=== PATIENT | female | born 1975 | race Caucasian/White ===

== ENCOUNTER → 2020-03-10 | Outpatient (CLI) | payer OTHER ==
--- NOTE | 2020-03-10 23:12 | NM ---
EXAMINATION TYPE: NM gastric emptying static DATE OF EXAM: 03/10/2020 COMPARISON: NONE HISTORY: Gastroparesis Following administration of 2.1 mCi Tc 99m Sulfur Colloid with 4oz liquid eggs and ice water, project ion images of the abdomen were obtained 5 minutes post ingestion. Patient Emptying Values 1 Hour 10 % 2 Hours 63 % 3 Hours 76 % 4 Hours 90 % Gastroesophageal reflux: None IMPRESSION: Gastric emptying: Normal Gastroesophageal reflux: None Gastric emptying normal percentage values: 30 minutes: <70% of retention (> 30% emptying) suggests abnormally fast emptying. 60 minutes: <90% retention (>10% emptying) is normal; less than 30% retention (>70% emptying) suggest s abnormally rapid emptying. 90 minutes: <65% retention (> 35% emptying) is normal. 120 minutes: <60% retention (> 40% emptying) is normal. 180 minutes: <30% retention (> 70% emptying) is normal. Gastric emptying T-1/2: Solid: The normal range is 60-105 minutes Liquid only: Normal range is 10-45 minutes. Liquid only-children: At 60 minutes, normal range is 44-58 % . Liquid only-infants: At 60 minutes, normal range is 32-64 %. Additional references: Gastric Emptying Scintigraphy [email or web address]://[email or web address]
== END | disposition home or self-care (01) ==
LOC: RADNMMAIN 06:51
PROVIDERS: ATTEND Internal Medicine
DX: K31.84 Gastroparesis (principal)
CPT/HCPCS: 78264; A9541

== ENCOUNTER 2022-07-28 18:27 | Inpatient (IN) | payer OTHER ==
[2022-07-28] MEDS ORDERED: FAMOTIDINE 20 MG/2 ML VIAL IV STA (18:49)
[2022-07-28] MEDS ORDERED: SODIUM CHLORIDE 0.9% 1,000 ML IV STA (18:49)
[2022-07-28] MEDS ORDERED: HYDROmorphone 1 MG/ML 1 ML SYRINGE IVP STA (18:49)
--- NOTE | 2022-07-28 18:52 | ED ---
General Adult HPI - General Chief complaint: Abdominal Pain Stated complaint: Abd Pain Time Seen by Provider: 07/28/22 18:30 Source: patient, EMS, RN notes reviewed Mode of arrival: EMS Limitations: no limitations - History of Present Illness Initial comments: Patient is a pleasant 47-year-old female presenting to the emergency department with concerns for abdominal pain. Onset of symptoms was around 2:00 while at work. Patient started with abdominal discomfort in the mid abdomen that did descend angled towards the right. Patient had 2 episodes of diarrhea and 2 episodes of vomiting. Discomfort is improved following pain medication by EMS and is currently 6 or 7/10. Patient states nausea has resolved. No history of similar symptoms previously. Patient does have history of previous cholecystectomy - Related Data Home Medications Medication Instructions Recorded Confirmed Acetaminophen [Tylenol Extra 500 mg PO Q6H PRN 07/28/22 07/28/22 Strength] Allergies Allergy/AdvReac Type Severity Reaction Status Date / Time lidocaine Allergy Anaphylaxis Verified 07/28/22 20:06 Review of Systems ROS Statement: Those systems with pertinent positive or pertinent negative responses have been documented in the HPI. ROS Other: All systems not noted in ROS Statement are negative. Constitutional: Denies: fever Eyes: Denies: eye pain ENT: Denies: ear pain Respiratory: Denies: cough Cardiovascular: Denies: chest pain Endocrine: Denies: fatigue Gastrointestinal: Reports: as per HPI, abdominal pain, nausea, vomiting, diarrhea Genitourinary: Denies: dysuria Musculoskeletal: Denies: back pain Skin: Denies: rash Neurological: Denies: weakness Past Medical History Past Medical History: No Reported History, Cancer Additional Past Medical History / Comment(s): Breast cancer History of Any Multi-Drug Resistant Organisms: None Reported Past Surgical History: Hernia Repair, Orthopedic Surgery, Tubal Ligation Past Psychological History: Anxiety Smoking Status: Never smoker Past Alcohol Use History: None Reported Past Drug Use History: None Reported General Exam Limitations: no limitations General appearance: alert, in no apparent distress Head exam: Present: normocephalic Eye exam: Present: normal appearance Neck exam: Present: normal inspection Respiratory exam: Present: normal lung sounds bilaterally Cardiovascular Exam: Present: regular rate, normal rhythm Expanded Peripheral pulses: 2+: Posterior Tibialis (R), Posterior Tibialis (L) GI/Abdominal exam: Present: soft, tenderness (Moderate tenderness right upper quadrant and epigastrium, mild tenderness periumbilical), normal bowel sounds. Absent: distended, guarding, rebound, rigid, pulsatile mass Extremities exam: Present: normal inspection Neurological exam: Present: alert Psychiatric exam: Present: normal affect, normal mood Skin exam: Present: normal color Course Vital Signs 07/28/22 07/28/22 18:32 19:32 Temperature 98.0 F Pulse Rate 80 86 Respiratory 22 16 Rate Blood Pressure 167/82 164/93 O2 Sat by Pulse 99 98 Oximetry EKG Findings - EKG Results: EKG: interpreted by ERMD, sinus rhythm, normal axis, normal QRS, normal ST/T Procedures - Procedures Initial comment: Verbal informed consent given. Attempted hernia reduction with manual pressure. There was at least partial reduction with pressure and improvement of palpable hernia. Patient however has no improvement of clinical symptoms. Discomfort is not present unless palpated in the area of hernia. Medical Decision Making - Medical Decision Making Was pt. sent in by a medical professional or institution (, PA, [employer], urgent care, hospital, or group home...) When possible be specific @ -[No] Did you speak to anyone other than the patient for history (EMS, parent, family, police, friend...)? What history was obtained from this source @ -[No] Did you review nursing and triage notes (agree or disagree)? Why? @ -[I reviewed and agree with nursing and triage notes] Were old charts reviewed (outside hosp., previous admission, EMS record, old EKG, old radiological studies, urgent care reports/EKG's, group home records)? Report findings @ -[No old charts were reviewed] Differential Diagnosis (chest pain, altered mental status, abdominal pain women, abdominal pain men, vaginal bleeding, weakness, fever, dyspnea, syncope, headache, dizziness, GI bleed, back pain, seizure, CVA, palpatations, mental health)? @ -Differential Abdominal Pain Women: Appendicitis, Cholecystitis, diverticulosis, ischemic bowel, pancreatitis, hepatitis, UTI, gastroenteritis, AAA, incarcerated hernia, bowel obstruction, constipation, inflammatory bowel, hepatitis, peptic ulcer disease, splenic infarction, perforated viscus, vulvitis, ovarian torsion, PID, kidney stone, placenta abruption, this is not meant to be an all-inclusive list EKG interpreted by me (3pts min.). @ -[As above] X-rays interpreted by me (1pt min.). @ -[None done] CT interpreted by me (1pt min.). @ -CT report from radiologist reviewed showing incarcerated hernia with small bowel obstruction U/S interpreted by me (1pt. min.). @ -[None done] What testing was considered but not performed or refused? (CT, X-rays, U/S, labs)? Why? @ -Considered x-ray however CT thought to be more valuable What meds were considered but not given or refused? Why? @ -[None] Did you discuss the management of the patient with other professionals (professionals i.e. , PA, [employer], lab, RT, psych nurse, executive secretary social welfare, residential interior designer, teacher, maritime officer, case manager specialist)? Give summary @ -Case discussed with Dr. Puga who will admit. He does request IV antibiotics, NG tube and nothing by mouth, probable surgery in the morning Was smoking cessation discussed for >3mins.? @ -[No] Was critical care preformed (if so, how long)? @ -[No] Were there social determinants of health that impacted care today? How? (Homelessness, low income, unemployed, alcoholism, drug addiction, sanchez sportation, low edu. Level, literacy, decrease access to med. care, [facility], rehab)? @ -[No] Was there de-escalation of care discussed even if they declined (Discuss DNR or withdrawal of care, Hospice)? DNR status @ -[No] What co-morbidities impacted this encounter? (DM, HTN, Smoking, COPD, CAD, Cancer, CVA, ARF, Chemo, Hep., AIDS, mental health diagnosis, sleep apnea, morbid obesity)? @ -[None] Was patient admitted / discharged? Hospital course, mention meds given and route, prescriptions, significant lab abnormalities, going to OR and other pertinent info. @ -Patient reevaluated. Attempted reduction that appeared successful however no improvement of clinical symptoms. Patient will be admitted to the hospital. Orders written. Undiagnosed new problem with uncertain prognosis? @ -[No] Drug Therapy requiring intensive monitoring for toxicity (Heparin, Nitro, Insulin, Cardizem)? @ -[No] Were any procedures done? @ -[No] Diagnosis/symptom? @ -Incarcerated umbilical hernia Acute, or Chronic, or Acute on Chronic? @ -Acute Uncomplicated (without systemic symptoms) or Complicated (systemic symptoms)? @ -Complicated by bowel obstruction Side effects of treatment? @ -[No] Exacerbation, Progression, or Severe Exacerbation? @ -[No] Poses a threat to life or bodily function? How? (Chest pain, USA, AR, pneumonia, PE, COPD, DKA, ARF, appy, cholecystitis, CVA, Diverticulitis, Homicidal, Suicidal, threat to staff... and all critical care pts) @ -Poses a threat to life secondary to bowel obstruction from hernia - Lab Data Result diagrams: 07/28/22 18:56 07/28/22 18:56 Lab Results 07/28/22 07/28/22 Range/Units 18:56 18:56 WBC 16.4 H (3.8-10.6) k/uL RBC 4.93 (3.80-5.40) m/uL Hgb 13.9 (11.4-16.0) gm/dL Hct 42.7 (34.0-46.0) % MCV 86.5 (80.0-100.0) fL MCH 28.3 (25.0-35.0) pg MCHC 32.7 (31.0-37.0) g/dL RDW 14.0 (11.5-15.5) % Plt Count 294 (150-450) k/uL MPV 8.1 Neutrophils % 90 % Lymphocytes % 7 % Monocytes % 2 % Eosinophils % 0 % Basophils % 0 % Neutrophils # 14.8 H (1.3-7.7) k/uL Lymphocytes # 1.1 (1.0-4.8) k/uL Monocytes # 0.4 (0-1.0) k/uL Eosinophils # 0.0 (0-0.7) k/uL Basophils # 0.0 (0-0.2) k/uL Sodium 140 (137-145) mmol/L Potassium 3.8 (3.5-5.1) mmol/L Chloride 108 H (98-107) mmol/L Carbon Dioxide 24 (22-30) mmol/L Anion Gap 8 mmol/L BUN 13 (7-17) mg/dL Creatinine 0.53 (0.52-1.04) mg/dL Est GFR (CKD-EPI)AfAm >90 (>60 ml/min/1.73 sqM) Est GFR (CKD-EPI)NonAf >90 (>60 ml/min/1.73 sqM) Glucose 98 (74-99) mg/dL Calcium 8.9 (8.4-10.2) mg/dL Total Bilirubin 0.5 (0.2-1.3) mg/dL AST 22 (14-36) U/L ALT 16 (4-34) U/L Alkaline Phosphatase 89 (38-126) U/L Total Protein 6.9 (6.3-8.2) g/dL Albumin 4.3 (3.5-5.0) g/dL Amylase 65 (30-110) U/L Lipase 110 (23-300) U/L Disposition Clinical Impression: Small bowel obstruction, Umbilical hernia Disposition: ADMITTED IP TO THIS HOSP Is patient prescribed a controlled substance at d/c from ED?: No Referrals: France Root MD [Primary Care Provider] - 1-2 days Time of Disposition: 20:38
[2022-07-28 19:43] LABS: Basophils % (A) 0 %; Eosinophils % (A) 0 %; HCT 42.7 % (34.0-46.0); HGB 13.9 gm/dL (11.4-16.0); Lymphocytes # (A) 1.1 k/uL (1.0-4.8); Lymphocytes % (A) 7 %; MCH 28.3 pg (25.0-35.0); MCHC 32.7 g/dL (31.0-37.0); MCV 86.5 fL (80.0-100.0); Mean Platelet Volume 8.1; Monocytes # (A) 0.4 k/uL (0-1.0); Monocytes % (A) 2 %; Neutrophils # (A) 14.8 k/uL (1.3-7.7); Neutrophils % (A) 90 %; Platelet Count 294 k/uL (150-450); RBC 4.93 m/uL (3.80-5.40); WBC 16.4 k/uL (3.8-10.6)
--- NOTE | 2022-07-28 19:55 | CT ---
EXAMINATION TYPE: CT abdomen pelvis w con DATE OF EXAM: 07/28/2022 COMPARISON: None HISTORY: RT side abdomen pain. CT DLP: 1799.6 mGycm Automated exposure control for dose reduction was used. CONTRAST: Performed with IV Contrast, patient injected with 100cc mL of Isovue 300. Images obtained from the diaphragm to the floor of the pelvis with the IV contrast. Lung bases are clear. No pleural effusion. Heart size is normal. No pericardial effusion. There is sm all hiatal hernia. Liver spleen and pancreas appear intact. The bile ducts are not dilated. There are clips from cholecy stectomy. There is periumbilical or umbilical hernia with apparent incarcerated small bowel in the mid abdomen. There are multiple dilated fluid-filled small bowel loops extending up to the hernia. Small bowel me asures up to 3.5 cm. The distal ileum is not dilated. There is some mild small bowel mesenteric edema near the hernia. There is no adrenal mass. There is 1 cm cortical cyst medial upper pole left kidney. No hydronephrosi s. Kidneys have normal size. Delayed images show normal renal excretion. No evidence of solid renal m ass. There is small amount of low-density free fluid in the pelvis. There is small air bubble in the urina ry bladder. This could relate to catheterization. No inguinal hernia. No evidence of a pelvic mass. N o evidence of pneumoperitoneum. Appendix is anterior and appears normal. The lumbar spine is intact. Disc spaces are normal. No compression fracture. The bony pelvis is intac t. The hip joints are intact. Sacroiliac joints appear normal. IMPRESSION: Periumbilical hernia containing incarcerated loop of small bowel with a mechanical small bowel obstru ction. Hernia measures 8 cm and the opening is 2.7 cm.
[2022-07-28 20:05] LABS: ALT 16 U/L (4-34); AST 22 U/L (14-36); African American GFR (CKD) >90 (>60 ml/min/1.73 sqM); Albumin 4.3 g/dL (3.5-5.0); Alkaline Phosphatase 89 U/L (38-126); Amylase 65 U/L (30-110); Anion Gap 8 mmol/L; Blood Urea Nitrogen 13 mg/dL (7-17); Calcium 8.9 mg/dL (8.4-10.2); Carbon Dioxide 24 mmol/L (22-30); Chloride 108 mmol/L (98-107); Glucose 98 mg/dL (74-99); Lipase 110 U/L (23-300); Non-African American GFR(CKD) >90 (>60 ml/min/1.73 sqM); Potassium 3.8 mmol/L (3.5-5.1); Sodium 140 mmol/L (137-145); Total Bilirubin 0.5 mg/dL (0.2-1.3); Total Protein 6.9 g/dL (6.3-8.2)
[2022-07-28 20:07] LABS: INR 0.9 (<1.2); Prothrombin Time 10.1 sec (9.0-12.0)
[2022-07-28] MEDS ORDERED: NALOXONE 0.4 MG/ML 1 ML VIAL IV PRN (20:44)
[2022-07-28 20:47] LABS: Partial Thromboplastin Time 21.9 sec (22.0-30.0)
[2022-07-28] MEDS: SODIUM CHLORIDE 0.9% 1,000 ML IV SCH (21:13)
[2022-07-28] MEDS: HYDROmorphone 1 MG/ML 1 ML SYRINGE IVP PRN ×2 (21:14→23:57)
[2022-07-28] MEDS: ONDANSETRON 4 MG/2 ML VIAL IVP PRN (21:31)
--- NOTE | 2022-07-28 22:01 | XR ---
EXAMINATION TYPE: XR KUB portable DATE OF EXAM: 07/28/2022 COMPARISON: NONE HISTORY: Check tube placement TECHNIQUE: Single view FINDINGS: Upright portable exam shows nasogastric tube with the tip over the gastric fundus. Lung bas es are clear of consolidation. No definite pleural fluid. Bowel gas pattern appears nonacute. No sign of free air. IMPRESSION: NG tube is in the stomach.
[2022-07-28] MEDS: PIPERACILLIN-TAZOBACTAM 3.375 GM in SODIUM CHLORIDE 0.9% 100 ML IVPB SCH (23:57)
[2022-07-29] MEDS: HYDROmorphone 1 MG/ML 1 ML SYRINGE IVP PRN ×4 (04:53→19:48)
[2022-07-29] MEDS: SODIUM CHLORIDE 0.9% 1,000 ML IV SCH ×3 (06:21→22:09)
[2022-07-29] MEDS: ONDANSETRON 4 MG/2 ML VIAL IVP PRN (06:21)
[2022-07-29] MEDS ORDERED: LACTATED RINGERS 1,000 ML IV ONE (08:00)
[2022-07-29] MEDS ORDERED: HEPARIN SODIUM,PORCINE 5,000 UNIT/ML 1 ML VIAL SQ ONE (08:05)
[2022-07-29] MEDS ORDERED: PROPOFOL 10 MG/ML 20 ML VIAL IV ONE (08:09)
[2022-07-29] MEDS ORDERED: ePHEDrine 50 MG/ML 1 ML VIAL ONE (08:09)
[2022-07-29] MEDS ORDERED: NEOSTIGMINE 1 MG/ML 10 ML VIAL ONE (08:09)
[2022-07-29] MEDS ORDERED: ROCURONIUM 10 MG/ML (5 ML VIAL) IV ONE (08:09)
[2022-07-29] MEDS ORDERED: fentaNYL (PF) 50 MCG/ML 2 ML AMP ONE (08:09)
[2022-07-29] MEDS ORDERED: MIDAZOLAM 2 MG/2 ML VIAL ONE (08:09)
[2022-07-29] MEDS ORDERED: PHENYLEPHRINE-0.9% NACL SYG 1,000 MCG/10 ML SYRINGE ONE (08:09)
[2022-07-29] MEDS ORDERED: GLYCOPYRROLATE 0.2 MG/ML 2 ML VIAL ONE (08:09)
[2022-07-29] MEDS ORDERED: HYDROmorphone (PF) 1 MG/ML ONE (08:09)
[2022-07-29] MEDS ORDERED: SUCCINYLCHOLINE CHLORIDE 200 MG/10 ML VIAL IV ONE (08:09)
--- NOTE | 2022-07-29 08:11 | P.GSHP ---
History of Present Illness H&P Date: 07/29/22 Chief Complaint: Incarcerated incisional hernia 47-year-old female here with complaints of mid abdominal pain. Patient was previously seen for this hernia several years ago. Patient had a previous midline incision for a gynecologic oncologic surgery where she had total abd ominal hysterectomy performed. Apparently she had a very large mass at the time. Yesterday she developed sudden onset pain midabdomen that radiated upper and lower abdomen. This is associated with episodes of cramps and vomiting. She came to the hospital for evaluation. CAT scan shows an incarcerated incisional hernia containing a loop of small bowel causing some degree of obstruction. This was able to be reduced partially by the ER physician with improvement in the patient's symptoms per the ER doctor. White blood cell count elevated. Patient says she did well overnight but is again having pain this morning. - Review of Systems Comment: The patient denies any acute changes in vision or hearing, no dysphagia or odynophagia, no chest pain or shortness of breath, no dysuria or hematuria, no headache, no runny nose, no rectal bleeding or melena, no unexplained weight loss Past Medical History Past Medical History: No Reported History, Cancer Additional Past Medical History / Comment(s): Breast cancer History of Any Multi-Drug Resistant Organisms: None Reported Past Surgical History: Cholecystectomy, Hernia Repair, Orthopedic Surgery, Tubal Ligation Past Psychological History: Anxiety Smoking Status: Never smoker Past Alcohol Use History: None Reported Past Drug Use History: None Reported Medications and Allergies Home Medications Medication Instructions Recorded Confirmed Type Acetaminophen [Tylenol Extra 500 mg PO Q6H PRN 07/28/22 07/28/22 History Strength] Allergies Allergy/AdvReac Type Severity Reaction Status Date / Time lidocaine Allergy Anaphylaxis Verified 07/28/22 20:06 Surgical - Exam Vital Signs Temp Pulse Resp BP Pulse Ox 98.0 F 80 22 167/82 99 07/28/22 18:32 07/28/22 18:32 07/28/22 18:32 07/28/22 18:32 07/28/22 18:32 Physical exam: General: Well-developed, well-nourished HEENT: Normocephalic, sclerae nonicteric Abdomen: Mild distention, hernia difficult to palpate but there is certainly tenderness and fullness at the umbilicus Extremities: No edema Neuro: Alert and oriented Results - Labs 07/28/22 18:56 07/28/22 18:56 Abnormal Lab Results - Last 24 Hours (Table) 07/28/22 07/28/22 07/28/22 Range/Units 18:56 18:56 18:56 WBC 16.4 H (3.8-10.6) k/uL Neutrophils # 14.8 H (1.3-7.7) k/uL APTT 21.9 L (22.0-30.0) sec Chloride 108 H (98-107) mmol/L Diabetes panel 07/28/22 Range/Units 18:56 Sodium 140 (137-145) mmol/L Potassium 3.8 (3.5-5.1) mmol/L Chloride 108 H (98-107) mmol/L Carbon Dioxide 24 (22-30) mmol/L BUN 13 (7-17) mg/dL Creatinine 0.53 (0.52-1.04) mg/dL Glucose 98 (74-99) mg/dL Calcium 8.9 (8.4-10.2) mg/dL AST 22 (14-36) U/L ALT 16 (4-34) U/L Alkaline Phosphatase 89 (38-126) U/L Total Protein 6.9 (6.3-8.2) g/dL Albumin 4.3 (3.5-5.0) g/dL Calcium panel 07/28/22 Range/Units 18:56 Calcium 8.9 (8.4-10.2) mg/dL Albumin 4.3 (3.5-5.0) g/dL Pituitary panel 07/28/22 Range/Units 18:56 Sodium 140 (137-145) mmol/L Potassium 3.8 (3.5-5.1) mmol/L Chloride 108 H (98-107) mmol/L Carbon Dioxide 24 (22-30) mmol/L BUN 13 (7-17) mg/dL Creatinine 0.53 (0.52-1.04) mg/dL Glucose 98 (74-99) mg/dL Calcium 8.9 (8.4-10.2) mg/dL Adrenal panel 07/28/22 Range/Units 18:56 Sodium 140 (137-145) mmol/L Potassium 3.8 (3.5-5.1) mmol/L Chloride 108 H (98-107) mmol/L Carbon Dioxide 24 (22-30) mmol/L BUN 13 (7-17) mg/dL Creatinine 0.53 (0.52-1.04) mg/dL Glucose 98 (74-99) mg/dL Calcium 8.9 (8.4-10.2) mg/dL Total Bilirubin 0.5 (0.2-1.3) mg/dL AST 22 (14-36) U/L ALT 16 (4-34) U/L Alkaline Phosphatase 89 (38-126) U/L Total Protein 6.9 (6.3-8.2) g/dL Albumin 4.3 (3.5-5.0) g/dL Assessment and Plan (1) Incarcerated incisional hernia Narrative/Plan: 47-year-old female with incarcerated incisional hernia. We'll proceed with open repair incarcerated incisional hernia with possible bowel resection. Risks of bleeding, infection, recurrence, bladder and bowel injury, numbness, nerve injury, leak, abscess, seroma were discussed with the patient. The patient understands and wishes to proceed. Current Visit: Yes Status: Acute Code(s): K43.0 - INCISIONAL HERNIA WITH OBSTRUCTION, WITHOUT GANGRENE SNOMED Code(s): 768124706
--- NOTE | 2022-07-29 10:20 | P.OP ---
Date of Procedure: 07/29/22 Procedure(s) Performed: PREOPERATIVE DIAGNOSIS: Incarcerated incisional hernia POSTOPERATIVE DIAGNOSIS: Incarcerated incisional hernia, small bowel perforation, extensive abdominal adhesions PROCEDURE: Open repair incarcerated incisional hernia, small bowel resection, extensive lysis of adhesions SURGEON: Dr. Loza ANESTHESIA: General OPERATIVE PROCEDURE DETAILS: Patient placed on the operating table in the supine position. Abdomen was prepped and draped in usual sterile fashion. The previous incision was re-incised and extended superiorly. Later the incision was lengthened inferiorly as well. Dissection through the subcutaneous tissues took place using electrocautery. The patient had one large hernia defect measuring 8 cm in width. There was a very thin band of fascia between the 2 lateral margins. The patient also had multiple small 1-1.57 m fascial defects along the midline. The hernia sac was entered. As soon as we entered the hernia sac there was purulent fluid encountered. Careful evaluation of the small bowel deep to the hernia defect revealed a portion of small intestine that was viable with the exception of a perforation along the mesenteric border. There was some succus present there. The bowel was clamped at that location while we completed our dissection. The hernia sac was excised. Again the greatest width of the fascial defect was 8 cm. The height was 6 cm. Multiple small defects were also encountered and the fascia was divided. The patient had dense adhesions to the omentum and small bowel which were lysed using both electrocautery, sharp dissection, and blunt dissection. Eventually we had the ability to inspect the entirety of the small intestine. The bowel was ran from the ligament of Treitz to the ileocecal valve. No further abnormalities were seen. The small bowel resection took place at that time. The bowel was divided proximal and distal to the perforation segment using a linear 75 stapler. The mesentery was divided using the LigaSure device. The antimesenteric portion of the staple line was excised and the stapler was fired along the antimesenteric border. The remaining defect was closed transversely using a TX 60 device. A 3-0 GI silk crotch stitch was placed. The TX staple line was imbricated using interrupted 3-0 GI silk sutures. The bowel was reduced back into the perineal cavity. Copious irrigation of the abdominal cavity took place using 4 L of saline. No further purulence was seen. No bleeding was seen. I then reapproximated the fascia primarily using short running #2 Ethibond sutures. No mesh was utilized. A drain was placed anterior to the fascial closure exiting through the left lower quadrant. This was sutured to the skin using a 3-0 silk stitch. The subcutaneous tissues were closed using 3-0 Vicryl sutures. The skin was closed using evangelist. Sterile dressings were applied. HERNIA CHARACTERISTICS: Length: 6 cm Width: 8 cm Type: Incarcerated incisional TYPE OF MESH USED: None PREOPERATIVE DISCUSSION ON SMOKING CESSASTION: Yes PREOPERATIVE DISCUSSION ON MORBID OBESITY: Yes PREOPERATIVE DISCUSSION ON APPROPRIATE USE OF NARCOTIC USE: Yes PREOPERATIVE EDUCATION: Multi Modal, Smoking Cessation and Weight Loss with BMI over 35. DISPOSITION: Stable to recovery room
[2022-07-29] MEDS ORDERED: HYDROmorphone 0.5 MG/0.5 ML SYRINGE IVP ONE ×4 (10:50→11:16)
[2022-07-29] MEDS ORDERED: ONDANSETRON 4 MG/2 ML VIAL IVP ONE (10:54)
[2022-07-29] MEDS ORDERED: KETOROLAC 15 MG/ML 1 ML VIAL IVP ONE (10:55)
[2022-07-29] MEDS: PIPERACILLIN-TAZOBACTAM 3.375 GM in SODIUM CHLORIDE 0.9% 100 ML IVPB SCH ×2 (12:00→14:48)
[2022-07-29] MEDS: KETOROLAC 15 MG/ML 1 ML VIAL IVP SCH ×2 (12:08→17:13)
[2022-07-29] MEDS: PANTOPRAZOLE 40 MG/10 ML VIAL IV SCH (12:08)
[2022-07-29] MEDS: metroNIDAZOLE-NS PMX 500 MG in SALINE 1 100ML.BAG IVPB SCH ×2 (12:09→16:24)
[2022-07-29] MEDS: HEPARIN SODIUM,PORCINE/PF 5,000 UNIT/0.5 ML SYRINGE SQ SCH (14:47)
[2022-07-29 15:40] LABS: ALT 18 U/L (4-34); AST 22 U/L (14-36); African American GFR (CKD) >90 (>60 ml/min/1.73 sqM); Albumin 3.1 g/dL (3.5-5.0); Albumin/Globulin Ratio 1.4; Alkaline Phosphatase 64 U/L (38-126); Anion Gap 6 mmol/L; Blood Urea Nitrogen 17 mg/dL (7-17); Calcium 8.2 mg/dL (8.4-10.2); Carbon Dioxide 22 mmol/L (22-30); Chloride 110 mmol/L (98-107); Globulin 2.2 g/dL; Glucose 122 mg/dL (74-99); Non-African American GFR(CKD) >90 (>60 ml/min/1.73 sqM); Potassium 3.9 mmol/L (3.5-5.1); Sodium 138 mmol/L (137-145); Total Bilirubin 1.4 mg/dL (0.2-1.3); Total Protein 5.3 g/dL (6.3-8.2)
[2022-07-29 15:46] LABS: HCT 39.9 % (34.0-46.0); HGB 13.5 gm/dL (11.4-16.0); Hypochromasia Slight; MCH 29.9 pg (25.0-35.0); MCHC 33.8 g/dL (31.0-37.0); MCV 88.6 fL (80.0-100.0); Mean Platelet Volume 8.3; Platelet Count 264 k/uL (150-450); RDW 14.8 % (11.5-15.5); WBC 21.7 k/uL (3.8-10.6)
[2022-07-29 16:11] LABS: Band Neutrophils % 22 %; Monocytes # (M) 0.87 k/uL (0-1.0); Neutrophils % (M) 68 %; Nucleated Red Blood Cells 0 /100 WBC (0-0); Total Cells Counted 100
[2022-07-30] MEDS: HEPARIN SODIUM,PORCINE/PF 5,000 UNIT/0.5 ML SYRINGE SQ SCH ×4 (00:04→23:53)
[2022-07-30] MEDS: KETOROLAC 15 MG/ML 1 ML VIAL IVP SCH ×5 (00:04→23:53)
[2022-07-30] MEDS: metroNIDAZOLE-NS PMX 500 MG in SALINE 1 100ML.BAG IVPB SCH ×3 (00:05→17:53)
[2022-07-30] MEDS: HYDROmorphone 1 MG/ML 1 ML SYRINGE IVP PRN ×4 (00:05→22:04)
[2022-07-30] MEDS: PIPERACILLIN-TAZOBACTAM 3.375 GM in SODIUM CHLORIDE 0.9% 100 ML IVPB SCH ×4 (00:05→23:52)
--- NOTE | 2022-07-30 02:10 | P.CONS ---
History of Present Illness - Reason for Consult Consult date: 07/29/22 Medical management - Chief Complaint Abdominal pain - History of Present Illness Patient is a 47-year-old female with a past medical history of breast cancer, abdominal surgery due to gynecological oncology with large mass, anxiety presents ER with complaints of abdominal pain mainly in the mid abdomen. Patient does have history of incisional hernia. Patient developed sudden onset of mid abdominal pain that radiates to the upper and lower abdomen. With cramping and nausea vomiting episodes. CT of the abdomen pelvis done in the ER showed periumbilical hernia containing incarcerated loop of small bowel with mechanical small bowel obstruction. KUB x-ray showed NG tube in the stomach. EKG showed sinus rhythm. Patient was taken to the OR and is status post incarcerated hernia repair with small bowel resection due to perforation and lysis of additions. Postoperatively blood pressure is down to 96/52. Currently denies any complaints of dizziness or lightheadedness. No chest pain or shortness of breath. Nausea improved. Patient has been afebrile. Laboratory pressure WBC 16.4 hemoglobin 13.9 and platelets 294 sodium 140 potassium 3.8 chloride 108 bicarb is 24 BUN 13 and creatinine 0.53 and liver enzymes are not elevated. Lipase level is 110. Review of Systems Constitutional: Patient denies any fever or chills . no Generalized weakness. Abdomen: Patient does complain of nausea and abdominal pain. No diarrhea or vomiting. Cardiovascular: Patient denies any chest pain or short of breath no palpitations. Respiratory: patient denied any cough . no sputum production. No shortness of breath Neurologic: Patient denied any numbness or tingling headache. Musculoskeletal: Patient denies any complaints of joint swelling or deformity. Skin: Negative Psychiatric: Negative Endocrine: No heat or cold intolerance. No recent weight gain. Genitourinary: No dysuria or hematuria. All other 14 point ROS negative except the above Past Medical History Past Medical History: No Reported History, Cancer Additional Past Medical History / Comment(s): Breast cancer History of Any Multi-Drug Resistant Organisms: None Reported Past Surgical History: Cholecystectomy, Hernia Repair, Orthopedic Surgery, Tubal Ligation Past Psychological History: Anxiety Smoking Status: Never smoker Past Alcohol Use History: None Reported Past Drug Use History: None Reported Medications and Allergies Home Medications Medication Instructions Recorded Confirmed Type Acetaminophen [Tylenol Extra 500 mg PO Q6H PRN 07/28/22 07/28/22 History Strength] Allergies Allergy/AdvReac Type Severity Reaction Status Date / Time lidocaine Allergy Anaphylaxis Verified 07/28/22 20:06 Physical Exam Vitals: Vital Signs Temp Pulse Resp BP Pulse Ox 07/29/22 19:58 99.0 F 95 17 94/61 95 07/29/22 19:48 95 17 07/29/22 13:50 98.5 F 110 H 107/65 93 L 07/29/22 13:35 95 102/70 93 L 07/29/22 13:20 94 98/58 94 L 07/29/22 13:05 88 93/60 93 L 07/29/22 12:50 87 104/68 93 L 07/29/22 12:35 95 97/59 95 07/29/22 12:20 92 99/61 92 L 07/29/22 12:05 95 104/68 92 L 07/29/22 11:50 98.8 F 85 16 106/71 91 L 07/29/22 11:30 83 16 101/53 94 L 07/29/22 11:15 88 16 96/52 93 L 07/29/22 11:00 86 16 103/57 93 L 07/29/22 10:45 95 16 103/57 97 07/29/22 10:30 85 16 102/55 97 07/29/22 10:15 86 16 106/67 97 07/29/22 10:08 98.6 F 93 16 101/56 97 07/29/22 08:00 102.8 F H 100 18 120/61 91 L 07/29/22 07:17 100.4 F H 95 18 122/80 93 L Intake and Output 07/29/22 07/29/22 07/30/22 14:59 22:59 06:59 Intake Total 2500 Output Total 130 245 Balance 2370 -245 Intake: IV 2500 Output: Gastric Drainage 100 Drainage 20 Abdomen 20 Urine 55 125 Estimated Blood Loss 75 Other: Voiding Method Bedside Commode Indwelling Catheter PHYSICAL EXAMINATION: Patient is lying in the bed comfortably, no acute distress, awake alert and oriented.. HEENT: Normocephalic. Neck is supple. Pupils reactive. Nostrils clear. Oral cavity is moist. Neck reveals no JVD, carotid bruits, or thyromegaly. CHEST EXAMINATION: Trachea is central. Symmetrical expansion. Lung hernandez clear to auscultation and percussion. CARDIAC: Normal S1, S2 with no gallops. No murmurs ABDOMEN: Soft. Abdominal surgical site is bandaged. Bowel sounds present.. Mild tenderness at the surgical site.. No organomegaly. No abdominal bruits. Extremities: reveal no edema. No clubbing or cyanosis Neurologically awake, alert, oriented x3 with well-coordinated movements. No focal deficits noted Skin: No rash or skin lesions. Psychiatric: Coperative. Nonsuicidal, Musculoskeletal: No joint swelling or deformity. Normal range of motion. Results CBC & Chem 7: 07/29/22 15:08 07/29/22 15:08 Labs: Abnormal Lab Results - Last 24 Hours (Table) 07/29/22 07/29/22 Range/Units 15:08 15:08 WBC 21.7 H (3.8-10.6) k/uL Neutrophils # (Manual) 19.50 H (1.3-7.7) k/uL Chloride 110 H (98-107) mmol/L Glucose 122 H (74-99) mg/dL Calcium 8.2 L (8.4-10.2) mg/dL Total Bilirubin 1.4 H (0.2-1.3) mg/dL Total Protein 5.3 L (6.3-8.2) g/dL Albumin 3.1 L (3.5-5.0) g/dL Microbiology - Last 24 Hours (Table) 07/28/22 20:50 Blood Culture - Preliminary Blood No Growth after 24 hours 07/28/22 20:40 Blood Culture - Preliminary Blood No Growth after 24 hours Assessment and Plan Assessment: Incarcerated periumbilical hernia with small bowel mechanical obstruction. Status post hernia repair and bowel resection and lysis of additions. Postoperative day 0 History of breast cancer History of gynecological surgery with resection of mass. Anxiety Obesity GI and DVT prophylaxis Plan: Patient declined pain management, bowel regimen and incentive spirometry was encouraged. Continue with antibiotics in the form of Zosyn. Current symptomatic management for nausea. Continue IV hydration and monitor blood pressure closely. Follow-up repeat CBC and BMP. We will continue to follow closely and further recommendations based on clinical course. Thank you for your consult. Time with Patient: Greater than 30
[2022-07-30] MEDS: SODIUM CHLORIDE 0.9% 1,000 ML IV SCH ×3 (06:18→21:55)
[2022-07-30] MEDS: PANTOPRAZOLE 40 MG/10 ML VIAL IV SCH (08:14)
[2022-07-30 08:44] LABS: Basophils # (A) 0.05 X 10*3/uL (0.00-0.10); Basophils % (A) 0.3 %; Eosinophils # (A) 0 X 10*3/uL (0.04-0.35); Eosinophils % (A) 0 %; HCT 37.2 % (37.2-46.3); HGB 11.2 g/dL (12.0-15.0); Immature Grans, Automated 0.4 %; Lymphocytes # (A) 0.98 X 10*3/uL (0.90-5.00); Lymphocytes % (A) 5.3 %; MCH 27.6 pg (27.0-32.0); MCHC 30.1 g/dL (32.0-37.0); MCV 91.6 fL (80.0-97.0); Mean Platelet Volume 10.4 fL (9.5-12.2); Monocytes # (A) 0.87 X 10*3/uL (0.20-1.00); Monocytes % (A) 4.7 %; NRBC Per 100 WBC 0 /100 WBCS (0.0-0.0); Neutrophils # (A) 16.39 X 10*3/uL (1.80-7.70); Neutrophils % (A) 89.3 %; Platelet Count 235 X 10*3/uL (140-440); RBC 4.06 X 10*6/uL (4.10-5.20); RDW 15.6 % (11.5-14.5); WBC 18.36 X 10*3/uL (4.50-10.00)
[2022-07-30 09:02] LABS: African American GFR (CKD) 100.3 (60.0-200.0); Anion Gap 4.1 mmol/L (10.00-18.00); BUN/Creat Ratio 22.38 Ratio (12.00-20.00); Blood Urea Nitrogen 17.9 mg/dL (9.0-27.0); Calcium 8.4 mg/dL (8.7-10.3); Carbon Dioxide 26.9 mmol/L (20.0-27.5); Non-African American GFR(CKD) 86.6 (60.0-200.0); Potassium 3.9 mmol/L (3.5-5.5)
[2022-07-30] MEDS ORDERED: BENZOCAINE SPRAY 1 CAN MUCOUS MEM PRN (09:31)
[2022-07-30] MEDS ORDERED: BENZOCAINE/MENTHOL LOZENG 1 EACH LOZENGE MUCOUS MEM PRN (12:16)
[2022-07-30] MEDS ORDERED: SODIUM CHLORIDE 0.9% 500 ML 500 ML IV ONE (12:17)
[2022-07-30] MEDS ORDERED: VANCOMYCIN IV PER PHARMACY 1 EACH MISC MISCELLANE PRN (12:26)
[2022-07-30] MEDS ORDERED: VANCOMYCIN 2,000 MG in SODIUM CHLORIDE 0.9% 500 ML 500 ML IVPB ONE (13:30)
--- NOTE | 2022-07-30 14:07 | P.PN ---
Subjective Progress Note Date: 07/30/22 Patient is a 47-year-old female with a past medical history of breast cancer, abdominal surgery due to gynecological oncology with large mass, anxiety presents ER with complaints of abdominal pain mainly in the mid abdomen. Patient does have history of incisional hernia. Patient developed sudden onset of mid abdominal pain that radiates to the upper and lower abdomen. With cramping and nausea vomiting episodes. CT of the abdomen pelvis done in the ER showed periumbilical hernia containing incarcerated loop of small bowel with mechanical small bowel obstruction. KUB x-ray showed NG tube in the stomach. EKG showed sinus rhythm. Patient was taken to the OR and is status post incarcerated hernia repair with small bowel resection due to perforation and lysis of additions. Postoperatively blood pressure is down to 96/52. Currently denies any complaints of dizziness or lightheadedness. No chest pain or shortness of breath. Nausea improved. Patient has been afebrile. Laboratory pressure WBC 16.4 hemoglobin 13.9 and platelets 294 sodium 140 potassium 3.8 chloride 108 bicarb is 24 BUN 13 and creatinine 0.53 and liver enzymes are not elevated. Lipase level is 110. 07/30/2022 Patient is postoperative day #1 incarcerated periumbilical hernia repair from SBO with lysis of adhesions. Continues with NG tube to suction. 600 mls of output overnight and currently 300 mls so far today. Continues to be NPO, reports not passing gas yet, bowel sounds are hypoactive today. Blood culture positive x 3 for gram positive cocci and repeat cultures taken today. ID has been consulted. Continues on IV metronidazole, IV zosyn. IV vancomycin has been added. White count trending down 18.36 today. On 3L nasal cannula, low grade fever today, blood pressure in the high 90s to 100s systolic. Review of Systems Constitutional: Reports fatigue denied any fever. Cardio vascular: denied any chest pain, palpitations Gastrointestinal: Denies flatus, no BM. Has some abdominal pain about 4/10 Pulmonary: Denied any shortness of breath cough Neurologic denied any new focal deficits All inpatient medications were reviewed and appropriate changes in these medications as dictated in the interval history and assessment and plan. PHYSICAL EXAMINATION: GENERAL: The patient is alert and oriented x3, not in any acute distress. Well developed, well nourished. HEENT: Pupils are round and equally reacting to light. EOMI. No scleral icterus. No conjunctival pallor. Normocephalic, atraumatic. No pharyngeal erythema. No thyromegaly. CARDIOVASCULAR: S1 and S2 present. No murmurs, rubs, or gallops. PULMONARY: Chest is clear to auscultation, no wheezing or crackles. ABDOMEN: Soft, tender, nondistended, Hypoactive bowel sounds. No palpable organomegaly. Post surgical abdomen. NG tube in place with billious output. MUSCULOSKELETAL: No joint swelling or deformity. EXTREMITIES: No cyanosis, clubbing, or pedal edema. NEUROLOGICAL: Gross neurological examination did not reveal any focal deficits. Generalized weakness. SKIN: No rashes. Assessment and Plan Assessment Incarcerated periumbilical hernia with small bowel mechanical obstruction. Status post hernia repair and bowel resection and lysis of additions. Postoperative day 1 Gram positive bacteremia Leukocytosis History of breast cancer History of gynecological surgery with resection of mass. Anxiety Obesity GI and DVT prophylaxis Full Code Plan: Continue with pain management Bowel regimen and incentive spirometry was encouraged. Continue with antibiotics Infectious disease consultation and follow up blood cultures Current symptomatic management for nausea. Continue IV hydration and monitor blood pressure closely. Thank you for your consult. The impression and plan of care has been dictated by Taylor Zazueta Nurse Practitioner as directed. Dr. Noel MD I have performed a history and physical examination and medical decision making of this patient, discussed the same with the dictator, and agree with the dictators assessment and plan as written, documented as a scribe. Based on total visit time, I have performed more than 50% of this visit. Objective - Vital Signs Vital signs: Vital Signs Temp 99.1 F 07/30/22 07:25 Pulse 97 07/30/22 07:25 Resp 16 07/30/22 07:25 BP 104/63 07/30/22 07:25 Pulse Ox 95 07/30/22 07:25 FiO2 Intake & Output 07/29/22 07/30/22 07/30/22 18:59 06:59 18:59 Intake Total 2500 Output Total 275 1045 Balance 2225 -1045 Intake: IV 2500 Output: Gastric Drainage 700 Drainage 20 20 Abdomen 20 20 Urine 180 325 Estimated Blood Loss 75 Other: Voiding Method Bedside Commode Indwelling Catheter Indwelling Catheter - Labs CBC & Chem 7: 07/30/22 04:56 07/30/22 04:56 Labs: Abnormal Lab Results - Last 24 Hours (Table) 07/29/22 07/29/22 07/30/22 Range/Units 15:08 15:08 04:56 WBC 21.7 H 18.36 H (3.8-10.6) k/uL RBC 4.06 L (4.10-5.20) X 10*6/uL Hgb 11.2 L (12.0-15.0) g/dL MCHC 30.1 L (32.0-37.0) g/dL RDW 15.6 H (11.5-14.5) % Immature Gran # 0.07 H (0.00-0.04) X 10*3/uL Neutrophils # 16.39 H (1.80-7.70) X 10*3/uL Neutrophils # (Manual) 19.50 H (1.3-7.7) k/uL Eosinophils # 0 L (0.04-0.35) X 10*3/uL Chloride 110 H (98-107) mmol/L Anion Gap (10.00-18.00) mmol/L BUN/Creatinine Ratio (12.00-20.00) Ratio Glucose 122 H (74-99) mg/dL Calcium 8.2 L (8.4-10.2) mg/dL Total Bilirubin 1.4 H (0.2-1.3) mg/dL Total Protein 5.3 L (6.3-8.2) g/dL Albumin 3.1 L (3.5-5.0) g/dL 07/30/22 Range/Units 04:56 WBC (3.8-10.6) k/uL RBC (4.10-5.20) X 10*6/uL Hgb (12.0-15.0) g/dL MCHC (32.0-37.0) g/dL RDW (11.5-14.5) % Immature Gran # (0.00-0.04) X 10*3/uL Neutrophils # (1.80-7.70) X 10*3/uL Neutrophils # (Manual) (1.3-7.7) k/uL Eosinophils # (0.04-0.35) X 10*3/uL Chloride (98-107) mmol/L Anion Gap 4.10 L (10.00-18.00) mmol/L BUN/Creatinine Ratio 22.38 H (12.00-20.00) Ratio Glucose (74-99) mg/dL Calcium 8.4 L (8.4-10.2) mg/dL Total Bilirubin (0.2-1.3) mg/dL Total Protein (6.3-8.2) g/dL Albumin (3.5-5.0) g/dL Microbiology - Last 24 Hours (Table) 07/28/22 20:50 Blood Culture Gram Stain - Preliminary Blood 07/28/22 20:40 Blood Culture Gram Stain - Preliminary Blood 07/28/22 20:50 Blood Culture - Final Blood 07/28/22 20:40 Blood Culture - Final Blood Assessment and Plan Time with Patient: Less than 30
--- NOTE | 2022-07-30 14:16 | P.PN ---
Subjective Progress Note Date: 07/30/22 CHIEF COMPLAINT: Incarcerated incisional hernia HISTORY OF PRESENT ILLNESS: Patient is postop day #1 status post open repair of incarcerated incisional hernia, small bowel resection and extensive lysis of adhesions. Patient has NG tube in place with 600 mL output. Patient reports that her pain is controlled. Denies any flatus. Denies any bowel movement. NUBIA drain with serosanguineous output 20 mL through the night. Urine output 325 mL during the night. Had been pink tinged and cloudy. Urine is clearing. Patient has Willingham catheter in place. Afebrile. Patient does have positive blood cultur e with gram-positive cocci. WBC is down from 21-18 hemoglobin is 11.2 platelets 235 sodium is 140 potassium 3.9 creatinine 0.8 PHYSICAL EXAM: VITAL SIGNS: Reviewed. GENERAL: Well-developed in no acute distress. HEENT: No sclera icterus. Extraocular movements grossly intact. Moist buccal mucosa. Head is atraumatic, normocephalic. ABDOMEN: Soft. Nondistended. Abdominal incision with very small area of saturation. Otherwise clean dry and intact. NUBIA drain in place. NEUROLOGIC: Alert and oriented. Cranial nerves II through XII grossly intact. ASSESSMENT: 1. Incarcerated incisional hernia, small bowel perforation, extensive abdominal adhesions 2. Bacteremia PLAN: -Continue NG tube for decompression -Keep patient nothing by mouth For ice chips -Continue IV fluids -Continue Willingham catheter for one more day. Continue to monitor urine output. -Consult infectious disease regarding possible blood culture -Continue pain medication -Continue antibiotics -GI prophylaxis Protonix and DVT prophylaxis subcu heparin Physician Home Health Clinical Liaison note has been reviewed by physician. Signing provider agrees with the documented findings, assessment, and plan of care. I have personally seen and examined the patient, reviewed the COTTRELL BLOWER /PAs history, exam and MDM and agree with the assessment and plan as written. Based on total visit time, I have performed more than 50% of the visit. As above: Patient doing well today. Still with significant nasogastric output. Pain is improved. Vital signs are stable. Urine output has been somewhat marginal. We'll bolus at this time. Keep nasogastric tube in place. Continue antibiotics. Consult infectious disease for positive blood cultures. Objective - Vital Signs Vital signs: Vital Signs Temp 99.1 F 07/30/22 07:25 Pulse 97 07/30/22 07:25 Resp 16 01/09/23 07:25 BP 104/63 07/30/22 07:25 Pulse Ox 95 07/30/22 07:25 FiO2 Intake & Output 07/29/22 07/30/22 07/30/22 18:59 06:59 18:59 Intake Total 2500 Output Total 275 1045 Balance 2225 -1045 Intake: IV 2500 Output: Gastric Drainage 700 Drainage 20 20 Abdomen 20 20 Urine 180 325 Estimated Blood Loss 75 Other: Voiding Method Bedside Commode Indwelling Catheter Indwelling Catheter - Labs CBC & Chem 7: 07/30/22 04:56 07/30/22 04:56 Labs: Abnormal Lab Results - Last 24 Hours (Table) 07/29/22 07/29/22 07/30/22 Range/Units 15:08 15:08 04:56 WBC 21.7 H 18.36 H (3.8-10.6) k/uL RBC 4.06 L (4.10-5.20) X 10*6/uL Hgb 11.2 L (12.0-15.0) g/dL MCHC 30.1 L (32.0-37.0) g/dL RDW 15.6 H (11.5-14.5) % Immature Gran # 0.07 H (0.00-0.04) X 10*3/uL Neutrophils # 16.39 H (1.80-7.70) X 10*3/uL Neutrophils # (Manual) 19.50 H (1.3-7.7) k/uL Eosinophils # 0 L (0.04-0.35) X 10*3/uL Chloride 110 H (98-107) mmol/L Anion Gap (10.00-18.00) mmol/L BUN/Creatinine Ratio (12.00-20.00) Ratio Glucose 122 H (74-99) mg/dL Calcium 8.2 L (8.4-10.2) mg/dL Total Bilirubin 1.4 H (0.2-1.3) mg/dL Total Protein 5.3 L (6.3-8.2) g/dL Albumin 3.1 L (3.5-5.0) g/dL 07/30/22 Range/Units 04:56 WBC (3.8-10.6) k/uL RBC (4.10-5.20) X 10*6/uL Hgb (12.0-15.0) g/dL MCHC (32.0-37.0) g/dL RDW (11.5-14.5) % Immature Gran # (0.00-0.04) X 10*3/uL Neutrophils # (1.80-7.70) X 10*3/uL Neutrophils # (Manual) (1.3-7.7) k/uL Eosinophils # (0.04-0.35) X 10*3/uL Chloride (98-107) mmol/L Anion Gap 4.10 L (10.00-18.00) mmol/L BUN/Creatinine Ratio 22.38 H (12.00-20.00) Ratio Glucose (74-99) mg/dL Calcium 8.4 L (8.4-10.2) mg/dL Total Bilirubin (0.2-1.3) mg/dL Total Protein (6.3-8.2) g/dL Albumin (3.5-5.0) g/dL Microbiology - Last 24 Hours (Table) 07/28/22 20:50 Blood Culture Gram Stain - Preliminary Blood 07/28/22 20:40 Blood Culture Gram Stain - Preliminary Blood 07/28/22 20:50 Blood Culture - Final Blood 07/28/22 20:40 Blood Culture - Final Blood
[2022-07-30] MEDS ORDERED: metroNIDAZOLE-NS PMX 500 MG in SALINE 1 100ML.BAG IVPB SCH (21:00)
--- NOTE | 2022-07-30 21:49 | P.CONS ---
History of Present Illness - Reason for Consult Consult date: 07/30/22 Bacteremia Requesting physician: Glen Cohen - Chief Complaint Abdominal pain x one day - History of Present Illness Patient is a 47 year old female with a past medical history significant for breast cancer the patient also have a history of midline incisio n for a gynecological oncological surgery many years ago requiring total abdominal hysterectomy because of large mass patient subsequently has developed a midline incisional hernia patient seemed to be doing okay with intermittent abdominal pain however yesterday the patient did develop sudden onset of mid abdominal pain describing it to be sharp almost 10 out of 10 in severity and did have episodes of vomiting but no diarrhea with these symptoms the patient was brought into the ER by EMS on arrival of the hospital the patient did have CT of abdominal pelvis which did shows incarcerated incisional hernia containing a loop of the small bowel causing degree of mechanical obstruction she patient was taken to the OR in this patient is status post open repair of the incarcerated incisional hernia and resection of the small bowel as there was evidence of small bowel perforation and extensive lysis of adhesion, and no OR ulcers patient did have blood cultures drawn which came back positive with gram- positive cocci that has prompted this infectious disease consultation patient is currently on a combination of Zosyn and Flagyl, patient of presentation hospital did have a fever of 102F the patient is afebrile this morning she did have white count of 16,000 which went up to 21,000 yesterday however his daughter 18.36 today with a left shift, patient did have abnormal kidney function liver enzymes are normal Review of Systems Positive point has been mentioned in the HPI rest of the systems are negative Past Medical History Past Medical History: No Reported History, Cancer Additional Past Medical History / Comment(s): Breast cancer History of Any Multi-Drug Resistant Organisms: None Reported Past Surgical History: Cholecystectomy, Hernia Repair, Orthopedic Surgery, Tubal Ligation Past Psychological History: Anxiety Smoking Status: Never smoker Past Alcohol Use History: None Reported Past Drug Use History: None Reported Medications and Allergies Home Medications Medication Instructions Recorded Confirmed Type Acetaminophen [Tylenol Extra 500 mg PO Q6H PRN 07/28/22 07/28/22 History Strength] Allergies Allergy/AdvReac Type Severity Reaction Status Date / Time lidocaine Allergy Anaphylaxis Verified 07/28/22 20:06 Physical Exam Vitals: Vital Signs Temp Pulse Resp BP Pulse Ox 07/30/22 07:25 99.1 F 97 16 104/63 95 07/30/22 02:00 98.4 F 91 18 100/63 95 07/29/22 19:58 99.0 F 95 17 94/61 95 07/29/22 19:48 95 17 07/29/22 13:50 98.5 F 110 H 107/65 93 L 07/29/22 13:35 95 102/70 93 L 07/29/22 13:20 94 98/58 94 L 07/29/22 13:05 88 93/60 93 L 07/29/22 12:50 87 104/68 93 L 07/29/22 12:35 95 97/59 95 Intake and Output 07/29/22 07/30/22 07/30/22 22:59 06:59 14:59 Output Total 245 945 Balance -245 -945 Output: Gastric Drainage 100 600 Drainage 20 20 Abdomen 20 20 Urine 125 325 Other: Voiding Method Indwelling Catheter Indwelling Catheter GENERAL DESCRIPTION: Middle-aged female lying in bed, no distress. No tachypnea or accessory muscle of respiration use. HEENT: Shows Pallor , no scleral icterus. Oral mucous membrane is dry. No pha ryngeal erythema or thrush NECK: Trachea central, no thyromegaly. LUNGS: Unlabored breathing. Clear to auscultation anteriorly. No wheeze or crackle. HEART: S1, S2, regular rate and rhythm. No loud murmur ABDOMEN: Soft, mild distention and tenderness EXTREMITIES: No edema of feet. SKIN: No rash, no masses palpable. NEUROLOGICAL: The patient is awake, alert, oriented x3, mood and affect normal. Results CBC & Chem 7: 07/30/22 04:56 07/30/22 04:56 Labs: Abnormal Lab Results - Last 24 Hours (Table) 07/29/22 07/29/22 07/30/22 Range/Units 15:08 15:08 04:56 WBC 21.7 H 18.36 H (3.8-10.6) k/uL RBC 4.06 L (4.10-5.20) X 10*6/uL Hgb 11.2 L (12.0-15.0) g/dL MCHC 30.1 L (32.0-37.0) g/dL RDW 15.6 H (11.5-14.5) % Immature Gran # 0.07 H (0.00-0.04) X 10*3/uL Neutrophils # 16.39 H (1.80-7.70) X 10*3/uL Neutrophils # (Manual) 19.50 H (1.3-7.7) k/uL Eosinophils # 0 L (0.04-0.35) X 10*3/uL Chloride 110 H (98-107) mmol/L Anion Gap (10.00-18.00) mmol/L BUN/Creatinine Ratio (12.00-20.00) Ratio Glucose 122 H (74-99) mg/dL Calcium 8.2 L (8.4-10.2) mg/dL Total Bilirubin 1.4 H (0.2-1.3) mg/dL Total Protein 5.3 L (6.3-8.2) g/dL Albumin 3.1 L (3.5-5.0) g/dL 07/30/22 Range/Units 04:56 WBC (3.8-10.6) k/uL RBC (4.10-5.20) X 10*6/uL Hgb (12.0-15.0) g/dL MCHC (32.0-37.0) g/dL RDW (11.5-14.5) % Immature Gran # (0.00-0.04) X 10*3/uL Neutrophils # (1.80-7.70) X 10*3/uL Neutrophils # (Manual) (1.3-7.7) k/uL Eosinophils # (0.04-0.35) X 10*3/uL Chloride (98-107) mmol/L Anion Gap 4.10 L (10.00-18.00) mmol/L BUN/Creatinine Ratio 22.38 H (12.00-20.00) Ratio Glucose (74-99) mg/dL Calcium 8.4 L (8.4-10.2) mg/dL Total Bilirubin (0.2-1.3) mg/dL Total Protein (6.3-8.2) g/dL Albumin (3.5-5.0) g/dL Microbiology - Last 24 Hours (Table) 07/28/22 20:50 Blood Culture Gram Stain - Preliminary Blood 07/28/22 20:40 Blood Culture Gram Stain - Preliminary Blood 07/28/22 20:50 Blood Culture - Final Blood 07/28/22 20:40 Blood Culture - Final Blood Assessment and Plan (1) Sepsis Current Visit: Yes Status: Acute Code(s): A41.9 - SEPSIS, UNSPECIFIED ORGANISM SNOMED Code(s): 00684212 (2) Gram-positive bacteremia Current Visit: Yes Status: Acute Code(s): R78.81 - BACTEREMIA SNOMED Code(s): 341927325908 Plan: 1patient is in the hospital with sepsis in this patient who did a fever and elevated white count and abdominal pain secondary to incarcerated incisional hernia in this patient who is status post laparotomy and repair of the hernia and resection of the perforated small bowel along with extensive lysis of adhesion now with a positive blood cultures likely secondary to abdominal source 2blood cultures will be repeated document clearance of bacteremia 3patient to continue the Zosyn however will add vancomycin while watching her kidney function closely, waiting for the ID of this pathogen We will follow on clinical condition and cultures to further adjust medication if needed Thank you for this consultation will follow this patient with you Time with Patient: Greater than 30
[2022-07-31] MEDS ORDERED: VANCOMYCIN 1,750 MG in SODIUM CHLORIDE 0.9% 500 ML 500 ML IVPB SCH (02:00)
[2022-07-31] MEDS: ONDANSETRON 4 MG/2 ML VIAL IVP PRN (03:49)
[2022-07-31] MEDS: HYDROmorphone 0.5 MG/0.5 ML SYRINGE IVP PRN ×6 (03:58→22:29)
[2022-07-31] MEDS: KETOROLAC 15 MG/ML 1 ML VIAL IVP SCH (05:59)
[2022-07-31] MEDS: SODIUM CHLORIDE 0.9% 1,000 ML IV SCH (06:28)
[2022-07-31] MEDS: PANTOPRAZOLE 40 MG/10 ML VIAL IV SCH (08:50)
[2022-07-31] MEDS: PIPERACILLIN-TAZOBACTAM 3.375 GM in SODIUM CHLORIDE 0.9% 100 ML IVPB SCH ×2 (08:50→15:32)
[2022-07-31] MEDS: HEPARIN SODIUM,PORCINE/PF 5,000 UNIT/0.5 ML SYRINGE SQ SCH ×2 (08:50→15:32)
[2022-07-31 10:05] LABS: Basophils # (A) 0.03 X 10*3/uL (0.00-0.10); Basophils % (A) 0.2 %; Eosinophils # (A) 0.02 X 10*3/uL (0.04-0.35); Eosinophils % (A) 0.1 %; HCT 33.5 % (37.2-46.3); HGB 9.9 g/dL (12.0-15.0); Immature Grans, Automated 0.6 %; Lymphocytes # (A) 0.76 X 10*3/uL (0.90-5.00); Lymphocytes % (A) 5.4 %; MCHC 29.6 g/dL (32.0-37.0); MCV 94.9 fL (80.0-97.0); Monocytes # (A) 0.55 X 10*3/uL (0.20-1.00); Monocytes % (A) 3.9 %; NRBC Per 100 WBC 0 /100 WBCS (0.0-0.0); Neutrophils # (A) 12.74 X 10*3/uL (1.80-7.70); Neutrophils % (A) 89.8 %; Platelet Count 186 X 10*3/uL (140-440); RBC 3.53 X 10*6/uL (4.10-5.20); RDW 15.4 % (11.5-14.5); WBC 14.18 X 10*3/uL (4.50-10.00)
[2022-07-31 10:06] LABS: RBC Morphology NORMAL
[2022-07-31 10:33] LABS: African American GFR (CKD) 121.9 (60.0-200.0); Anion Gap 13.8 mmol/L (10.00-18.00); BUN/Creat Ratio 22.75 Ratio (12.00-20.00); Blood Urea Nitrogen 14.4 mg/dL (9.0-27.0); Calcium 8.3 mg/dL (8.7-10.3); Carbon Dioxide 18.7 mmol/L (20.0-27.5); Non-African American GFR(CKD) 105.2 (60.0-200.0); Potassium 3.7 mmol/L (3.5-5.5)
[2022-07-31] MEDS ORDERED: SODIUM CHLORIDE 0.9% 1,000 ML IV SCH (15:15)
[2022-07-31] MEDS ORDERED: POTASSIUM CHLORIDE 10 MEQ in WATER FOR INJECTION 1 100ML.BAG IVPB SCH (15:15)
[2022-07-31] MEDS ORDERED: Potassium Replacement Protocol 1 EACH MISC MISCELLANE PRN (15:15)
--- NOTE | 2022-07-31 15:20 | P.PN ---
Subjective Progress Note Date: 07/31/22 CHIEF COMPLAINT: Incarcerated incisional hernia HISTORY OF PRESENT ILLNESS: Patient is postop day #2 status post open repair of incarcerated incisional hernia, small bowel resection and extensive lysis of adhesions. Patient continues to have increase NG tube output. Patient reports improvement in abdominal pain. She did have a bowel movement this afternoon. Afebrile. WBC is 14 Hgb is down from 11-9.9 platelets 186 sodium 144 potassium 3.7 creatinine 0.6 blood culture with micrococcus species. NUBIA drain with 65 in all serosanguineous output in 24 hours. Patient seen by infectious disease regarding positive blood culture. Urine output marginal. PHYSICAL EXAM: VITAL SIGNS: Reviewed. GENERAL: Well-developed in no acute distress. HEENT: No sclera icterus. Extraocular movements grossly intact. Moist buccal mucosa. Head is atraumatic, normocephalic. ABDOMEN: Soft. Nondistended. Abdominal incision with very small area of saturation. Otherwise clean dry and intact. NUBIA drain in place. NEUROLOGIC: Alert and oriented. Cranial nerves II through XII grossly intact. ASSESSMENT: 1. Incarcerated incisional hernia, small bowel perforation, extensive abdominal adhesions 2. Bacteremia PLAN: -Continue NG tube for decompression -Keep patient nothing by mouth For ice chips -Continue IV fluids -Continue pain medication -Continue antibiotics per ID service -Continue to monitor urine output -GI prophylaxis Protonix and DVT prophylaxis subcu heparin Physician Trim Master Operator note has been reviewed by physician. Signing provider agrees with the documented findings, assessment, and plan of care. I have personally seen and examined the patient, reviewed the MIRROR INSTALLER /PAs history, exam and MDM and agree with the assessment and plan as written. Based on total visit time, I have performed more than 50% of the visit. As above: Patient feels better today. Still having some mild right upper abdominal discomfort. NUBIA drain with serosanguineous output. Keep nothing by mouth. Monitor NG output tonight. Apparently she has been drinking a large amount of fluids. If amount overnight is decreased will consider gastric tube removal tomorrow. She has had some bowel moments. Objective - Vital Signs Vital signs: Vital Signs Temp 98.4 F 07/31/22 13:26 Pulse 83 07/31/22 13:26 Resp 17 07/31/22 13:26 BP 145/80 07/31/22 13:26 Pulse Ox 93 L 07/31/22 13:26 FiO2 Intake & Output 07/30/22 07/31/22 07/31/22 18:59 06:59 18:59 Output Total 1090 1550 5 Balance -1090 -1550 -5 Output: Gastric Drainage 750 1200 Drainage 40 5 Abdomen 40 5 Urine 300 350 Other: Voiding Method Indwelling Catheter Indwelling Catheter # Bowel Movements 1 - Labs CBC & Chem 7: 07/31/22 05:50 07/31/22 05:50 Labs: Abnormal Lab Results - Last 24 Hours (Table) 07/31/22 07/31/22 Range/Units 05:50 05:50 WBC 14.18 H (4.50-10.00) X 10*3/uL RBC 3.53 L (4.10-5.20) X 10*6/uL Hgb 9.9 L (12.0-15.0) g/dL Hct 33.5 L (37.2-46.3) % MCHC 29.6 L (32.0-37.0) g/dL RDW 15.4 H (11.5-14.5) % Immature Gran # 0.08 H (0.00-0.04) X 10*3/uL Neutrophils # 12.74 H (1.80-7.70) X 10*3/uL Lymphocytes # 0.76 L (0.90-5.00) X 10*3/uL Eosinophils # 0.02 L (0.04-0.35) X 10*3/uL Chloride 112 H (96-109) mmol/L Carbon Dioxide 18.7 L (20.0-27.5) mmol/L BUN/Creatinine Ratio 22.75 H (12.00-20.00) Ratio Calcium 8.3 L (8.7-10.3) mg/dL Microbiology - Last 24 Hours (Table) 07/28/22 20:40 Blood Culture Gram Stain - Final Blood Blood Culture - Final Micrococcus species 07/28/22 20:50 Blood Culture Gram Stain - Final Blood Blood Culture - Final Micrococcus species 07/30/22 09:58 Blood Culture - Preliminary Blood No Growth after 24 hours
--- NOTE | 2022-07-31 15:22 | P.PN ---
Subjective Progress Note Date: 07/31/22 Patient is a 47-year-old female with a past medical history of breast cancer, abdominal surgery due to gynecological oncology with large mass, anxiety presents ER with complaints of abdominal pain mainly in the mid abdomen. Patient does have history of incisional hernia. Patient developed sudden onset of mid abdominal pain that radiates to the upper and lower abdomen. With cramping and nausea vomiting episodes. CT of the abdomen pelvis done in the ER showed periumbilical hernia containing incarcerated loop of small bowel with mechanical small bowel obstruction. KUB x-ray showed NG tube in the stomach. EKG showed sinus rhythm. Patient was taken to the OR and is status post incarcerated hernia repair with small bowel resection due to perforation and lysis of additions. Postoperatively blood pressure is down to 96/52. Currently denies any complaints of dizziness or lightheadedness. No chest pain or shortness of breath. Nausea improved. Patient has been afebrile. Laboratory pressure WBC 16.4 hemoglobin 13.9 and platelets 294 sodium 140 potassium 3.8 chloride 108 bicarb is 24 BUN 13 and creatinine 0.53 and liver enzymes are not elevated. Lipase level is 110. 07/30/2022 Patient is postoperative day #1 incarcerated periumbilical hernia repair from SBO with lysis of adhesions. Continues with NG tube to suction. 600 mls of output overnight and currently 300 mls so far today. Continues to be NPO, reports not passing gas yet, bowel sounds are hypoactive today. Blood culture positive x 3 for gram positive cocci and repeat cultures taken today. ID has been consulted. Continues on IV metronidazole, IV zosyn. IV vancomycin has been added. White count trending down 18.36 today. On 3L nasal cannula, low grade fever today, blood pressure in the high 90s to 100s systolic. 07/31/2022 Patient is postoperative day #2 hernia repair with lysis of adhesions and resection of perforated small bowel. She continues with NG tube and has had about 2L of gastric output overnight. She has increased her oral intake with ice chips. Plan today is for NG tube to be clamped for patient to ambulate. She is not passing gas yet. Blood culture showing micrococcus species. ID is following. White count is down to 14.18, hgb 9.9. Remains, afebrile, on room air. Encouraged to use incentive spirometer. Review of Systems Constitutional: Reports fatigue denied any fever. Cardio vascular: denied any chest pain, palpitations Gastrointestinal: Denies flatus, no BM. Has some abdominal pain about 4/10 Pulmonary: Denied any shortness of breath cough Neurologic denied any new focal deficits All inpatient medications were reviewed and appropriate changes in these medications as dictated in the interval history and assessment and plan. PHYSICAL EXAMINATION: GENERAL: The patient is alert and oriented x3, not in any acute distress. Well developed, well nourished. HEENT: Pupils are round and equally reacting to light. EOMI. No scleral icterus. No conjunctival pallor. Normocephalic, atraumatic. No pharyngeal erythema. No thyromegaly. CARDIOVASCULAR: S1 and S2 present. No murmurs, rubs, or gallops. PULMONARY: Chest is clear to auscultation, no wheezing or crackles. Diminished ABDOMEN: Soft, tender, nondistended, Hypoactive bowel sounds. No palpable organomegaly. Post surgical abdomen. NG tube in place. MUSCULOSKELETAL: No joint swelling or deformity. EXTREMITIES: No cyanosis, clubbing, or pedal edema. NEUROLOGICAL: Gross neurological examination did not reveal any focal deficits. Generalized weakness. SKIN: No rashes. Assessment and Plan Assessment Incarcerated periumbilical hernia with small bowel mechanical obstruction. Status post hernia repair and bowel resection and lysis of additions. Postoperative day 2 Gram positive bacteremia Leukocytosis improving Metabolic acidosis from hyperchloremia likely from IV sodium chloride. History of breast cancer History of gynecological surgery with resection of mass. Anxiety Obesity GI and DVT prophylaxis Full Code Plan: Continue with pain management Bowel regimen and incentive spirometry was encouraged. Continue with antibiotics Infectious disease consultation and follow up blood cultures Current symptomatic management for nausea. Fluids changed to D5/0.45 and repeat labs in AM Thank you for your consult. The impression and plan of care has been dictated by Taylor Zazueta Nurse Practitioner as directed. Dr. Noel MD I have performed a history and physical examination and medical decision making of this patient, discussed the same with the dictator, and agree with the d ictators assessment and plan as written, documented as a scribe. Based on total visit time, I have performed more than 50% of this visit. Objective - Vital Signs Vital signs: Vital Signs Temp 98.4 F 07/31/22 13:26 Pulse 83 01/10/23 13:26 Resp 17 07/31/22 13:26 BP 145/80 07/31/22 13:26 Pulse Ox 93 L 07/31/22 13:26 FiO2 Intake & Output 07/30/22 07/31/22 07/31/22 18:59 06:59 18:59 Output Total 1090 1550 5 Balance -1090 -1550 -5 Output: Gastric Drainage 750 1200 Drainage 40 5 Abdomen 40 5 Urine 300 350 Other: Voiding Method Indwelling Catheter Indwelling Catheter # Bowel Movements 1 - Labs CBC & Chem 7: 07/31/22 05:50 07/31/22 05:50 Labs: Abnormal Lab Results - Last 24 Hours (Table) 07/31/22 07/31/22 Range/Units 05:50 05:50 WBC 14.18 H (4.50-10.00) X 10*3/uL RBC 3.53 L (4.10-5.20) X 10*6/uL Hgb 9.9 L (12.0-15.0) g/dL Hct 33.5 L (37.2-46.3) % MCHC 29.6 L (32.0-37.0) g/dL RDW 15.4 H (11.5-14.5) % Immature Gran # 0.08 H (0.00-0.04) X 10*3/uL Neutrophils # 12.74 H (1.80-7.70) X 10*3/uL Lymphocytes # 0.76 L (0.90-5.00) X 10*3/uL Eosinophils # 0.02 L (0.04-0.35) X 10*3/uL Chloride 112 H (96-109) mmol/L Carbon Dioxide 18.7 L (20.0-27.5) mmol/L BUN/Creatinine Ratio 22.75 H (12.00-20.00) Ratio Calcium 8.3 L (8.7-10.3) mg/dL Microbiology - Last 24 Hours (Table) 07/28/22 20:40 Blood Culture Gram Stain - Final Blood Blood Culture - Final Micrococcus species 07/28/22 20:50 Blood Culture Gram Stain - Final Blood Blood Culture - Final Micrococcus species 07/30/22 09:58 Blood Culture - Preliminary Blood No Growth after 24 hours Assessment and Plan Time with Patient: Less than 30
[2022-07-31] MEDS: D5-0.45% NACL WITH KCL 20MEQ/L 1,000 ML IV SCH (17:58)
--- NOTE | 2022-07-31 21:58 | P.PN ---
Subjective Progress Note Date: 07/31/22 Principal diagnosis: Positive blood culture and incarcerated incisional hernia Patient is a 47 year old female with a past medical history significant for breast cancer the patient also have a history of midline incision for a gynecological oncological surgery many years ago requiring total abdominal hysterectomy, presented to hospital with abdominal pain CT of abdomi nal pelvis concerning for incarcerated incisional hernia patient is status post open repair of the incarcerated incisional hernia resection of portion of the bowel also have a positive blood culture finalized as possible micrococcus. On today's evaluation that is 07/31/2022, the patient denies having any fever or any chills patient abdominal pain has slightly decreased intensity is down to about 4 out of 10 and no radiation no nausea no vomiting no chest pain shortness of breath or cough Objective - Vital Signs Vital signs: Vital Signs Temp 98.0 F 07/31/22 07:24 Pulse 78 07/31/22 07:24 Resp 17 07/31/22 07:24 BP 128/81 07/31/22 07:24 Pulse Ox 95 07/31/22 07:24 FiO2 Intake & Output 07/30/22 07/31/22 07/31/22 18:59 06:59 18:59 Output Total 1090 1550 5 Balance -1090 -1550 -5 Output: Gastric Drainage 750 1200 Drainage 40 5 Abdomen 40 5 Urine 300 350 Other: Voiding Method Indwelling Catheter Indwelling Catheter - Exam GENERAL DESCRIPTION: Middle-age female lying in bed in no distress RESPIRATORY SYSTEM: Unlabored breathing , decreased breath sounds at bases HEART: S1 S2 regular rate and rhythm , ABDOMEN: Soft , no tenderness EXTREMITIES: No edema feet - Labs CBC & Chem 7: 07/31/22 05:50 07/31/22 05:50 Labs: Abnormal Lab Results - Last 24 Hours (Table) 07/31/22 07/31/22 Range/Units 05:50 05:50 WBC 14.18 H (4.50-10.00) X 10*3/uL RBC 3.53 L (4.10-5.20) X 10*6/uL Hgb 9.9 L (12.0-15.0) g/dL Hct 33.5 L (37.2-46.3) % MCHC 29.6 L (32.0-37.0) g/dL RDW 15.4 H (11.5-14.5) % Immature Gran # 0.08 H (0.00-0.04) X 10*3/uL Neutrophils # 12.74 H (1.80-7.70) X 10*3/uL Lymphocytes # 0.76 L (0.90-5.00) X 10*3/uL Eosinophils # 0.02 L (0.04-0.35) X 10*3/uL Chloride 112 H (96-109) mmol/L Carbon Dioxide 18.7 L (20.0-27.5) mmol/L BUN/Creatinine Ratio 22.75 H (12.00-20.00) Ratio Calcium 8.3 L (8.7-10.3) mg/dL Microbiology - Last 24 Hours (Table) 07/28/22 20:50 Blood Culture Gram Stain - Preliminary Blood 07/28/22 20:40 Blood Culture Gram Stain - Preliminary Blood 07/28/22 20:50 Blood Culture - Final Blood 07/28/22 20:40 Blood Culture - Final Blood Assessment and Plan (1) Sepsis Current Visit: Yes Status: Acute Code(s): A41.9 - SEPSIS, UNSPECIFIED ORGANISM SNOMED Code(s): 56353485 (2) Gram-positive bacteremia Current Visit: Yes Status: Acute Code(s): R78.81 - BACTEREMIA SNOMED Code(s): 662624786186 Plan: 1patient is in the hospital with sepsis in this patient who did a fever and elevated white count and abdominal pain secondary to incarcerated incisional hernia in this patient who is status post laparotomy and repair of the hernia and resection of the perforated small bowel along with extensive lysis of adhesion now with a positive blood cultures which has been finalized as possible micrococcus likely skin contamination 2blood cultures will be repeated document clearance of bacteremia 3patient to continue the Zosyn however we will discontinue vancomycin and monitor clinical course closely
[2022-08-01] MEDS: HEPARIN SODIUM,PORCINE/PF 5,000 UNIT/0.5 ML SYRINGE SQ SCH ×4 (00:55→23:51)
[2022-08-01] MEDS: PIPERACILLIN-TAZOBACTAM 3.375 GM in SODIUM CHLORIDE 0.9% 100 ML IVPB SCH ×4 (00:56→23:50)
[2022-08-01] MEDS: HYDROmorphone 0.5 MG/0.5 ML SYRINGE IVP PRN ×4 (01:35→22:33)
[2022-08-01] MEDS: D5-0.45% NACL WITH KCL 20MEQ/L 1,000 ML IV SCH (05:20)
[2022-08-01] MEDS: PANTOPRAZOLE 40 MG/10 ML VIAL IV SCH (08:43)
[2022-08-01] MEDS: ONDANSETRON 4 MG/2 ML VIAL IVP PRN (08:44)
[2022-08-01 09:41] LABS: Basophils # (A) 0.04 X 10*3/uL (0.00-0.10); Basophils % (A) 0.4 %; Eosinophils # (A) 0.06 X 10*3/uL (0.04-0.35); Eosinophils % (A) 0.5 %; HCT 33.6 % (37.2-46.3); HGB 10.1 g/dL (12.0-15.0); Immature Grans, Automated 0.6 %; MCH 28.3 pg (27.0-32.0); MCHC 30.1 g/dL (32.0-37.0); MCV 94.1 fL (80.0-97.0); Mean Platelet Volume 10.4 fL (9.5-12.2); Monocytes # (A) 0.57 X 10*3/uL (0.20-1.00); Monocytes % (A) 5.2 %; NRBC Per 100 WBC 0 /100 WBCS (0.0-0.0); Neutrophils # (A) 9.11 X 10*3/uL (1.80-7.70); Neutrophils % (A) 83.3 %; Platelet Count 239 X 10*3/uL (140-440); RBC 3.57 X 10*6/uL (4.10-5.20); RDW 14.8 % (11.5-14.5); WBC 10.95 X 10*3/uL (4.50-10.00)
[2022-08-01 10:52] LABS: African American GFR (CKD) 125.4 (60.0-200.0); Anion Gap 12.8 mmol/L (10.00-18.00); BUN/Creat Ratio 18.59 Ratio (12.00-20.00); Blood Urea Nitrogen 10.8 mg/dL (9.0-27.0); Calcium 8.4 mg/dL (8.7-10.3); Carbon Dioxide 21.6 mmol/L (20.0-27.5); Non-African American GFR(CKD) 108.2 (60.0-200.0); Potassium 3.3 mmol/L (3.5-5.5)
--- NOTE | 2022-08-01 11:37 | CDI ---
Documentation Clarification Form Date: 08/01/2022 11:19:20 AM From: Alla Berumen CCS, CCDS Admit Date: 07/28/2022 8:44:00 PM Patient Name: Leda Carney Visit Number: [id number] Discharge Date: ATTENTION: The Clinical Documentation Specialists (CDI) and [facility] Coding Staff appreciate your assistance in clarifying documentation. Please respond to the clarification below the line at the bottom and electronically sign. The CDI & [facility] Coding staff will review the response and follow-up if needed. Please note: Queries are made part of the Legal Health Record. If you have any questions, please contact the author of this message via ITS. Dr. Ariel Loza: The patient presented with the following clinical indicators. Additional clarification regarding the etiology/cause of the clinical indicators is requested. Infectious Disease was consulted on POD 2 status post Laparotomy and Repair of Incarcerated Incisional Hernia and Bowel Resection for Perforation of Small Bowel. Impression: Sepsis, Gram Positive Bacteremia. Positive blood cultures secondary to abdominal source, Continued IV Zosyn, added IV Vancomycin pending repeat cultures. History/Risk Factors per the 07/29 H/P: MARLON, Breast Cancer, Cholecystectomy, Hernia Repair, Anxiety. Clinical Indicators: Presented to the ED on 07/28 via EMS with abdominal pain, acute onset; Diarrhea, Vomiting & Nausea. Admit with Small Bowel Obstruction, Umbilical Hernia. 07/28 VS: T 98.0, P 80, R 22, BP 167/82, PO 99 RA 07/28 LAB: WBC 16.4, Neutrophils 14.8, APTT 21.9; Chloride 108, Lactic Acid 1.2. 07/28 Blood cultures x4: Final x2: negative. Final x2: positive: Micrococcus species. 07/29 VS: T 100.4, 102.8; P 95, 100; R 18, BP 122/80, 101/56; PO 93 RA, 91 RA, 97 6Lnc 07/29 LAB: WBC 21.7, Hgb 13.5; Chloride 110, Glucose 122, Calcium 8.2, Total Bilirubin 1.4, total Protein 5.3, Albumin 3.1 07/30 LAB: WBC 18.36, RBC 4.06, Hgb 11.2, Neutrophils # 16.39, EOS 0; BUN 4.10, Calcium 8.4. 07/30 Blood culture: preliminary: no growth @ 24 hrs. 07/31 Blood culture: preliminary: no growth @ 24 hrs. Treatment 07/28: NGT, NPO, IV Pepcid 20 mg x1, IV Dilaudid 1 mg x1, 0.5 mg q3H/prn, 1 mg q3H/prn; IV Na Chloride 1,000 mls @ 999 mls/hr q1H, IV Zofran 4 mg q8H/prn. 07/29 to OR: Open repair incarcerated incisional hernia, small bowel resection, extensive lysis of adhesions (omentum). IV Zosyn 100 mls @ 25 mls/hr q8H, IV Lactated Ringers as directed, Heparin 5,000 unt sq x1 07/30: IV Vancomycin 500 mls @ 167 mls/hr x1, q12H; IV Kcl 100 mls @ 100 mls/hr q1H. In your professional opinion, please clarify if these findings signify one of the following conditions: [ X ] Bacteremia with Sepsis POA [ ] Bacteremia with Sepsis, Not POA [ ] Sepsis ruled out [ ] Other, please specify: [ ] Unable to determine (Template Last Reviewed: August 2020) MTDD
[2022-08-01] MEDS ORDERED: Potassium Replacement Protocol 1 EACH MISC MISCELLANE PRN (11:58)
--- NOTE | 2022-08-01 12:22 | P.PN ---
Subjective Progress Note Date: 08/01/22 Principal diagnosis: Positive blood culture and incarcerated incisional hernia Patient is a 47 year old female with a past medical history significant for breast cancer the patient also have a history of midline incision for a gynecological oncological surgery many years ago requiring total abdominal hysterectomy, presented to hospital with abdominal pain CT of abdomi nal pelvis concerning for incarcerated incisional hernia patient is status post open repair of the incarcerated incisional hernia resection of portion of the bowel also have a positive blood culture finalized as possible micrococcus. On today's evaluation that is 08/01/2022, the patient continues to be febrile, patient abdominal pain has decreased intensity, the patient denies nausea no vomiting, patient has been passing gas and did have bowel movement, no chest pain shortness of breath or cough Objective - Vital Signs Vital signs: Vital Signs Temp 97.2 F L 08/01/22 07:31 Pulse 91 08/01/22 07:31 Resp 17 08/01/22 07:31 BP 167/99 08/01/22 07:31 Pulse Ox 95 08/01/22 07:31 FiO2 Intake & Output 07/31/22 08/01/22 08/01/22 18:59 06:59 18:59 Output Total 1955 500 900 Balance -1955 -500 -900 Output: Gastric Drainage 1150 900 Drainage 5 Abdomen 5 Urine 800 500 Other: Voiding Method Indwelling Catheter Indwelling Catheter # Voids 0 # Bowel Movements 1 - Exam GENERAL DESCRIPTION: Middle-age female lying in bed in no distress RESPIRATORY SYSTEM: Unlabored breathing , decreased breath sounds at bases HEART: S1 S2 regular rate and rhythm , ABDOMEN: Soft , no tenderness EXTREMITIES: No edema feet - Labs CBC & Chem 7: 08/01/22 05:52 08/01/22 05:52 Labs: Abnormal Lab Results - Last 24 Hours (Table) 07/31/22 08/01/22 Range/Units 05:50 05:52 WBC 10.95 H (4.50-10.00) X 10*3/uL RBC 3.57 L (4.10-5.20) X 10*6/uL Hgb 10.1 L (12.0-15.0) g/dL Hct 33.6 L (37.2-46.3) % MCHC 30.1 L (32.0-37.0) g/dL RDW 14.8 H (11.5-14.5) % Immature Gran # 0.07 H (0.00-0.04) X 10*3/uL Neutrophils # 9.11 H (1.80-7.70) X 10*3/uL Chloride 112 H (96-109) mmol/L Carbon Dioxide 18.7 L (20.0-27.5) mmol/L BUN/Creatinine Ratio 22.75 H (12.00-20.00) Ratio Calcium 8.3 L (8.7-10.3) mg/dL Microbiology - Last 24 Hours (Table) 07/31/22 05:50 Blood Culture - Preliminary Blood No Growth after 24 hours 07/28/22 20:40 Blood Culture Gram Stain - Final Blood Blood Culture - Final Micrococcus species 07/28/22 20:50 Blood Culture Gram Stain - Final Blood Blood Culture - Final Micrococcus species 07/30/22 09:58 Blood Culture - Preliminary Blood No Growth after 24 hours Assessment and Plan (1) Sepsis Current Visit: Yes Status: Acute Code(s): A41.9 - SEPSIS, UNSPECIFIED ORGANISM SNOMED Code(s): 05917948 (2) Gram-positive bacteremia Current Visit: Yes Status: Acute Code(s): R78.81 - BACTEREMIA SNOMED Code(s): 195549897364 Plan: 1patient is in the hospital with sepsis in this patient who did a fever and elevated white count and abdominal pain secondary to incarcerated incisional hernia in this patient who is status post laparotomy and repair of the hernia and resection of the perforated small bowel along with extensive lysis of adhesion now with a positive blood cultures which has been finalized as possible micrococcus likely skin contamination 2blood cultures has been and are negative so far 3patient seemed to have clinical improvement and the white count has normalized, patient to continue the Zosyn and monitor clinical course closely Time with Patient: Less than 30
[2022-08-01] MEDS: POTASSIUM CHLORIDE 10 MEQ in WATER FOR INJECTION 1 100ML.BAG IVPB SCH ×4 (12:27→18:36)
[2022-08-01 12:48] VITALS: BMI 38.4
[2022-08-01] MEDS ORDERED: VANCOMYCIN TROUGH DUE 1 EACH MISC MISCELLANE ONE (13:00)
--- NOTE | 2022-08-01 13:07 | P.PN ---
Subjective Progress Note Date: 08/01/22 CHIEF COMPLAINT: Incarcerated incisional hernia HISTORY OF PRESENT ILLNESS: Patient is postop day #3 status post open repair of incarcerated incisional hernia, small bowel resection and extensive lysis of adhesions. Patient had 900 mL output through NG tube last night and 250 mL bilious output noted this morning. His Patient did have another bowel movement. She is having flatus. She reports her pain is controlled. Afebrile. Urine output has improved. WBC is down from 14-10 hemoglobin 10.1 platelets 239 sodium is 147 potassium 3.3 creatinine 0.6 NUBIA drain 5 mL serosanguineous output PHYSICAL EXAM: VITAL SIGNS: Reviewed. GENERAL: Well-developed in no acute distress. HEENT: No sclera icterus. Extraocular movements grossly intact. Moist buccal mucosa. Head is atraumatic, normocephalic. ABDOMEN: Soft. Nondistended. Abdominal incision with very small area of saturation. Otherwise clean dry and intact. NUBIA drain in place. NEUROLOGIC: Alert and oriented. Cranial nerves II through XII grossly intact. ASSESSMENT: 1. Incarcerated incisional hernia, small bowel perforation, extensive abdominal adhesions 2. Bacteremia 3. Hypokalemia PLAN: -Continue NG tube for decompression -Keep patient nothing by mouth For ice chips -Continue IV fluids -Continue pain medication -Continue antibiotics per ID service -Discontinue Willingham catheter -Replace potassium -GI prophylaxis Protonix and DVT prophylaxis subcu heparin Physician Turkey Picker note has been reviewed by physician. Signing provider agrees with the documented findings, assessment, and plan of care. Objective - Vital Signs Vital signs: Vital Signs Temp 97.2 F L 08/01/22 07:31 Pulse 91 08/01/22 07:31 Resp 17 08/01/22 07:31 BP 167/99 08/01/22 07:31 Pulse Ox 95 08/01/22 07:31 FiO2 Intake & Output 07/31/22 08/01/22 08/01/22 18:59 06:59 18:59 Output Total 1954 500 900 Balance -[id number] - Weight 95.254 kg Output: Gastric Drainage 1150 900 Drainage 5 Abdomen 5 Urine 800 500 Other: Voiding Method Indwelling Catheter Indwelling Catheter # Voids 0 # Bowel Movements 1 - Labs CBC & Chem 7: 08/01/22 05:52 08/01/22 05:52 Labs: Abnormal Lab Results - Last 24 Hours (Table) 08/01/22 08/01/22 Range/Units 05:52 05:52 WBC 10.95 H (4.50-10.00) X 10*3/uL RBC 3.57 L (4.10-5.20) X 10*6/uL Hgb 10.1 L (12.0-15.0) g/dL Hct 33.6 L (37.2-46.3) % MCHC 30.1 L (32.0-37.0) g/dL RDW 14.8 H (11.5-14.5) % Immature Gran # 0.07 H (0.00-0.04) X 10*3/uL Neutrophils # 9.11 H (1.80-7.70) X 10*3/uL Sodium 147 H (135-145) mmol/L Potassium 3.3 L (3.5-5.5) mmol/L Chloride 112 H (96-109) mmol/L Calcium 8.4 L (8.7-10.3) mg/dL Microbiology - Last 24 Hours (Table) 07/30/22 09:58 Blood Culture - Preliminary Blood No Growth after 48 hours 07/31/22 05:50 Blood Culture - Preliminary Blood No Growth after 24 hours 07/28/22 20:40 Blood Culture Gram Stain - Final Blood Blood Culture - Final Micrococcus species 07/28/22 20:50 Blood Culture Gram Stain - Final Blood Blood Culture - Final Micrococcus species
--- NOTE | 2022-08-01 14:59 | P.PN ---
Subjective Progress Note Date: 08/01/22 Patient is a 47-year-old female with a past medical history of breast cancer, abdominal surgery due to gynecological oncology with large mass, anxiety presents ER with complaints of abdominal pain mainly in the mid abdomen. Patient does have history of incisional hernia. Patient developed sudden onset of mid abdominal pain that radiates to the upper and lower abdomen. With cramping and nausea vomiting episodes. CT of the abdomen pelvis done in the ER showed periumbilical hernia containing incarcerated loop of small bowel with mechanical small bowel obstruction. KUB x-ray showed NG tube in the stomach. EKG showed sinus rhythm. Patient was taken to the OR and is status post incarcerated hernia repair with small bowel resection due to perforation and lysis of additions. Postoperatively blood pressure is down to 96/52. Currently denies any complaints of dizziness or lightheadedness. No chest pain or shortness of breath. Nausea improved. Patient has been afebrile. Laboratory pressure WBC 16.4 hemoglobin 13.9 and platelets 294 sodium 140 potassium 3.8 chloride 108 bicarb is 24 BUN 13 and creatinine 0.53 and liver enzymes are not elevated. Lipase level is 110. 07/30/2022 Patient is postoperative day #1 incarcerated periumbilical hernia repair from SBO with lysis of adhesions. Continues with NG tube to suction. 600 mls of output overnight and currently 300 mls so far today. Continues to be NPO, reports not passing gas yet, bowel sounds are hypoactive today. Blood culture positive x 3 for gram positive cocci and repeat cultures taken today. ID has been consulted. Continues on IV metronidazole, IV zosyn. IV vancomycin has been added. White count trending down 18.36 today. On 3L nasal cannula, low grade fever today, blood pressure in the high 90s to 100s systolic. 07/31/2022 Patient is postoperative day #2 hernia repair with lysis of adhesions and resection of perforated small bowel. She continues with NG tube and has had about 2L of gastric output overnight. She has increased her oral intake with ice chips. Plan today is for NG tube to be clamped for patient to ambulate. She is not passing gas yet. Blood culture showing micrococcus species. ID is following. White count is down to 14.18, hgb 9.9. Remains, afebrile, on room air. Encouraged to use incentive spirometer. 08/01/2022 Patient is evaluated today postoperative day #3 hernia repair with lysis of adhesions and resection of perforated small bowel. She was able to ambulate yesterday and reports BM x 2 today and is now passing gas. She reports letting ice chips melt down and drinking water. Gastric output 900 mls in the last 24 hours. Has indwelling catheter and urine output 500 mls noted in the last 24 rowan rs. Sodium up to 147 today and potassium 3.3. White count has improved to 10.95, hemoglobin 10.1. Afebrile. Blood pressure elevated in the 160s/90s. Patient reports feeling stressed out. Review of Systems Constitutional: Reports fatigue denied any fever. Cardio vascular: denied any chest pain, palpitations Gastrointestinal: No nausea, vomiting or diarrhea, passing gas and had BM x 2. Pulmonary: Denied any shortness of breath cough Neurologic denied any new focal deficits All inpatient medications were reviewed and appropriate changes in these medications as dictated in the interval history and assessment and plan. PHYSICAL EXAMINATION: GENERAL: The patient is alert and oriented x3, not in any acute distress. Well developed, well nourished. HEENT: Pupils are round and equally reacting to light. EOMI. No scleral icterus. No conjunctival pallor. Normocephalic, atraumatic. No pharyngeal erythema. No thyromegaly. CARDIOVASCULAR: S1 and S2 present. No murmurs, rubs, or gallops. PULMONARY: Chest is clear to auscultation, no wheezing or crackles. Diminished ABDOMEN: Soft, tender, nondistended, Hypoactive bowel sounds. No palpable organomegaly. Post surgical abdomen. NG tube in place. MUSCULOSKELETAL: No joint swelling or deformity. EXTREMITIES: No cyanosis, clubbing, or pedal edema. NEUROLOGICAL: Gross neurological examination did not reveal any focal deficits. Generalized weakness. SKIN: No rashes. Assessment and Plan Assessment Incarcerated periumbilical hernia with small bowel mechanical obstruction. Status post hernia repair and bowel resection and lysis of additions. Postoperative day 3 Gram positive bacteremia possibly contamination showing micrococcus species with repeat negative so far vs. intra-abdominal source. ID following. Leukocytosis improving Hypernatremia which IV fluids will be changed to D5 water. History of breast cancer History of gynecological surgery with resection of mass. Anxiety Obesity GI and DVT prophylaxis Full Code Plan: Continue with pain management Bowel regimen and incentive spirometry was encouraged. Continue with antibiotics Infectious disease consultation and follow up blood cultures Current symptomatic management for nausea. Repeat labs in AM Thank you for your consult. The impression and plan of care has been dictated by Taylor Zazueta, Nurse Practitioner as directed. Dr. Noel MD I have performed a history and physical examination and medical decision making of this patient, discussed the same with the dictator, and agree with the dictators assessment and plan as written, documented as a scribe. Based on total visit time, I have performed more than 50% of this visit. Objective - Vital Signs Vital signs: Vital Signs Temp 97.2 F L 08/01/22 07:31 Pulse 91 08/01/22 07:31 Resp 17 08/01/22 07:31 BP 167/99 08/01/22 07:31 Pulse Ox 95 08/01/22 07:31 FiO2 Intake & Output 07/31/22 08/01/22 08/01/22 18:59 06:59 18:59 Output Total 1955 500 900 Balance -1955 -500 -900 Output: Gastric Drainage 1150 900 Drainage 5 Abdomen 5 Urine 800 500 Other: Voiding Method Indwelling Catheter # Voids 0 # Bowel Movements 1 - Labs CBC & Chem 7: 08/01/22 05:52 08/01/22 05:52 Labs: Abnormal Lab Results - Last 24 Hours (Table) 07/31/22 07/31/22 08/01/22 Range/Units 05:50 05:50 05:52 WBC 14.18 H 10.95 H (4.50-10.00) X 10*3/uL RBC 3.53 L 3.57 L (4.10-5.20) X 10*6/uL Hgb 9.9 L 10.1 L (12.0-15.0) g/dL Hct 33.5 L 33.6 L (37.2-46.3) % MCHC 29.6 L 30.1 L (32.0-37.0) g/dL RDW 15.4 H 14.8 H (11.5-14.5) % Immature Gran # 0.08 H 0.07 H (0.00-0.04) X 10*3/uL Neutrophils # 12.74 H 9.11 H (1.80-7.70) X 10*3/uL Lymphocytes # 0.76 L (0.90-5.00) X 10*3/uL Eosinophils # 0.02 L (0.04-0.35) X 10*3/uL Chloride 112 H (96-109) mmol/L Carbon Dioxide 18.7 L (20.0-27.5) mmol/L BUN/Creatinine Ratio 22.75 H (12.00-20.00) Ratio Calcium 8.3 L (8.7-10.3) mg/dL Microbiology - Last 24 Hours (Table) 07/31/22 05:50 Blood Culture - Preliminary Blood No Growth after 24 hours 07/28/22 20:40 Blood Culture Gram Stain - Final Blood Blood Culture - Final Micrococcus species 07/28/22 20:50 Blood Culture Gram Stain - Final Blood Blood Culture - Final Micrococcus species 07/30/22 09:58 Blood Culture - Preliminary Blood No Growth after 24 hours Assessment and Plan Time with Patient: Less than 30
[2022-08-01] MEDS: D5W WITH KCL 20 MEQ/L 1,000 ML IV SCH (16:11)
[2022-08-02 02:42] LABS: African American GFR (CKD) 122.5 (60.0-200.0); Non-African American GFR(CKD) 105.7 (60.0-200.0)
[2022-08-02] MEDS: HYDROmorphone 0.5 MG/0.5 ML SYRINGE IVP PRN ×2 (04:37→11:20)
[2022-08-02] MEDS: D5W WITH KCL 20 MEQ/L 1,000 ML IV SCH ×2 (05:48→21:46)
[2022-08-02] MEDS: HEPARIN SODIUM,PORCINE/PF 5,000 UNIT/0.5 ML SYRINGE SQ SCH ×2 (08:26→16:25)
[2022-08-02] MEDS: PANTOPRAZOLE 40 MG/10 ML VIAL IV SCH (08:26)
[2022-08-02] MEDS: PIPERACILLIN-TAZOBACTAM 3.375 GM in SODIUM CHLORIDE 0.9% 100 ML IVPB SCH ×2 (08:26→16:26)
[2022-08-02 10:42] LABS: Basophils # (A) 0.04 X 10*3/uL (0.00-0.10); Basophils % (A) 0.4 %; Eosinophils # (A) 0.08 X 10*3/uL (0.04-0.35); Eosinophils % (A) 0.8 %; HCT 32.7 % (37.2-46.3); HGB 10.1 g/dL (12.0-15.0); Immature Grans, Automated 1.8 %; Lymphocytes # (A) 1.71 X 10*3/uL (0.90-5.00); MCH 27.8 pg (27.0-32.0); MCHC 30.9 g/dL (32.0-37.0); MCV 90.1 fL (80.0-97.0); Mean Platelet Volume 9.8 fL (9.5-12.2); Monocytes # (A) 0.76 X 10*3/uL (0.20-1.00); Monocytes % (A) 7.6 %; NRBC Per 100 WBC 0 /100 WBCS (0.0-0.0); Neutrophils # (A) 7.28 X 10*3/uL (1.80-7.70); Neutrophils % (A) 72.4 %; Platelet Count 269 X 10*3/uL (140-440); RBC 3.63 X 10*6/uL (4.10-5.20); RDW 14.8 % (11.5-14.5); WBC 10.05 X 10*3/uL (4.50-10.00)
[2022-08-02 11:05] LABS: African American GFR (CKD) 141.7 (60.0-200.0); Anion Gap 9.8 mmol/L (10.00-18.00); Blood Urea Nitrogen 5.6 mg/dL (9.0-27.0); Calcium 8.3 mg/dL (8.7-10.3); Carbon Dioxide 24.2 mmol/L (20.0-27.5); Magnesium 1.8 mg/dL (1.5-2.4); Non-African American GFR(CKD) 122.3 (60.0-200.0); Potassium 3.4 mmol/L (3.5-5.5)
--- NOTE | 2022-08-02 11:20 | XR ---
EXAMINATION TYPE: XR chest 2V DATE OF EXAM: 08/02/2022 COMPARISON: NONE TECHNIQUE: PA and lateral views submitted. HISTORY: Fever FINDINGS: There is an area of consolidation within the left lower lobe suggestive of pneumonia. Tiny left pleur al effusion suspected. Right lung clear. No pneumothorax. Heart size normal. Osseous structures intac t. IMPRESSION: 1. Left lower lobe pneumonia
[2022-08-02] MEDS ORDERED: POTASSIUM BICARBONATE/CIT AC 20 MEQ TABLET.EFF PO ONE (11:32)
--- NOTE | 2022-08-02 14:37 | P.PN ---
Subjective Progress Note Date: 08/02/22 Patient is a 47-year-old female with a past medical history of breast cancer, abdominal surgery due to gynecological oncology with large mass, anxiety presents ER with complaints of abdominal pain mainly in the mid abdomen. Patient does have history of incisional hernia. Patient developed sudden onset of mid abdominal pain that radiates to the upper and lower abdomen. With cramping and nausea vomiting episodes. CT of the abdomen pelvis done in the ER showed periumbilical hernia containing incarcerated loop of small bowel with mechanical small bowel obstruction. KUB x-ray showed NG tube in the stomach. EKG showed sinus rhythm. Patient was taken to the OR and is status post incarcerated hernia repair with small bowel resection due to perforation and lysis of additions. Postoperatively blood pressure is down to 96/52. Currently denies any complaints of dizziness or lightheadedness. No chest pain or shortness of breath. Nausea improved. Patient has been afebrile. Laboratory pressure WBC 16.4 hemoglobin 13.9 and platelets 294 sodium 140 potassium 3.8 chloride 108 bicarb is 24 BUN 13 and creatinine 0.53 and liver enzymes are not elevated. Lipase level is 110. 07/30/2022 Patient is postoperative day #1 incarcerated periumbilical hernia repair from SBO with lysis of adhesions. Continues with NG tube to suction. 600 mls of output overnight and currently 300 mls so far today. Continues to be NPO, reports not passing gas yet, bowel sounds are hypoactive today. Blood culture positive x 3 for gram positive cocci and repeat cultures taken today. ID has been consulted. Continues on IV metronidazole, IV zosyn. IV vancomycin has been added. White count trending down 18.36 today. On 3L nasal cannula, low grade fever today, blood pressure in the high 90s to 100s systolic. 07/31/2022 Patient is postoperative day #2 hernia repair with lysis of adhesions and resection of perforated small bowel. She continues with NG tube and has had about 2L of gastric output overnight. She has increased her oral intake with ice chips. Plan today is for NG tube to be clamped for patient to ambulate. She is not passing gas yet. Blood culture showing micrococcus species. ID is following. White count is down to 14.18, hgb 9.9. Remains, afebrile, on room air. Encouraged to use incentive spirometer. 08/01/2022 Patient is evaluated today postoperative day #3 hernia repair with lysis of adhesions and resection of perforated small bowel. She was able to ambulate yesterday and reports BM x 2 today and is now passing gas. She reports letting ice chips melt down and drinking water. Gastric output 900 mls in the last 24 hours. Has indwelling catheter and urine output 500 mls noted in the last 24 rowan rs. Sodium up to 147 today and potassium 3.3. White count has improved to 10.95, hemoglobin 10.1. Afebrile. Blood pressure elevated in the 160s/90s. Patient reports feeling stressed out. 08/02/2022 Patient is postoperative day #4 abdominal surgery for hernia repair lysis of adhesions and resection of small bowel. NG tube has been discontinued and plan for clear liquid diet today. She has had 3 BMs today. Does report some abdominal pain under right breast/rib cage area which she states she has had from prior surgeries. She has been ambulating. Continues on T1nopsb and sodium has improved to 140 today. Potassium 3.4, receiving oral supplementation. Patient did spike a fever of 100 last night. Pulse oxygen had dropped a bit and chest xray was taken which shows some consolidation left lower lobe possibly pneumonia. Repeat blood culture has been negative at 72 and 48 hours. Patient is continued on IV zosyn as per ID. Review of Systems Constitutional: Reports fatigue and fever x 1 Cardio vascular: denied any chest pain, palpitations Gastrointestinal: No nausea, vomiting or diarrhea. Passing gas, having BMs Pulmonary: Denied any shortness of breath cough Neurologic denied any new focal deficits All inpatient medications were reviewed and appropriate changes in these medications as dictated in the interval history and assessment and plan. PHYSICAL EXAMINATION: GENERAL: The patient is alert and oriented x3, not in any acute distress. Well developed, well nourished. HEENT: Pupils are round and equally reacting to light. EOMI. No scleral icterus. No conjunctival pallor. Normocephalic, atraumatic. No pharyngeal erythema. No thyromegaly. CARDIOVASCULAR: S1 and S2 present. No murmurs, rubs, or gallops. PULMONARY: Chest is clear to auscultation, no wheezing or crackles. Diminished ABDOMEN: Soft, tender, nondistended, Normoactive bowel sounds. No palpable organomegaly. Post surgical abdomen. MUSCULOSKELETAL: No joint swelling or deformity. EXTREMITIES: No cyanosis, clubbing, or pedal edema. NEUROLOGICAL: Gross neurological examination did not reveal any focal deficits. Generalized weakness. SKIN: No rashes. Assessment and Plan Assessment Incarcerated periumbilical hernia with small bowel mechanical obstruction. Status post hernia repair and bowel resection and lysis of additions. Postoperative day 4 Gram positive bacteremia possibly contamination showing micrococcus species with repeat negative so far vs. intra-abdominal source. ID following. Left lower lobe consolidation possibly pneumonia, hospital acquired. although patients white count has been improving on room air and has been maintained on IV zosyn. Leukocytosis improving Hypernatremia resolved History of breast cancer History of gynecological surgery with resection of mass. Anxiety Obesity GI and DVT prophylaxis Full Code Plan: Continue with pain management Bowel regimen and incentive spirometry was encouraged. Continue with antibiotics Infectious disease consultation and follow up blood cultures Diet increased to clear liquid Repeat labs in AM Thank you for your consult. The impression and plan of care has been dictated by Taylor Zazueta, Nurse Practitioner as directed. Dr. Noel MD I have performed a history and physical examination and medical decision making of this patient, discussed the same with the dictator, and agree with the dictators assessment and plan as written, documented as a scribe. Based on total visit time, I have performed more than 50% of this visit. Objective - Vital Signs Vital signs: Vital Signs Temp 98.5 F 08/02/22 13:30 Pulse 82 08/02/22 13:30 Resp 19 08/02/22 13:30 BP 165/97 08/02/22 13:30 Pulse Ox 96 08/02/22 13:30 FiO2 Intake & Output 08/01/22 08/02/22 08/02/22 18:59 06:59 18:59 Output Total 900 Balance -900 Weight 95.254 kg Output: Gastric Drainage 900 Other: Voiding Method Indwelling Catheter Toilet # Voids 2 - Labs CBC & Chem 7: 08/02/22 07:23 08/02/22 07:23 Labs: Abnormal Lab Results - Last 24 Hours (Table) 08/02/22 08/02/22 Range/Units 07:23 07:23 WBC 10.05 H (4.50-10.00) X 10*3/uL RBC 3.63 L (4.10-5.20) X 10*6/uL Hgb 10.1 L (12.0-15.0) g/dL Hct 32.7 L (37.2-46.3) % MCHC 30.9 L (32.0-37.0) g/dL RDW 14.8 H (11.5-14.5) % Immature Gran # 0.18 H (0.00-0.04) X 10*3/uL Potassium 3.4 L (3.5-5.5) mmol/L Anion Gap 9.80 L (10.00-18.00) mmol/L BUN 5.6 L (9.0-27.0) mg/dL Creatinine 0.4 L (0.6-1.5) mg/dL Glucose 111 H (70-110) mg/dL Calcium 8.3 L (8.7-10.3) mg/dL Microbiology - Last 24 Hours (Table) 07/30/22 09:58 Blood Culture - Preliminary Blood No Growth after 72 hours 07/31/22 05:50 Blood Culture - Preliminary Blood No Growth after 48 hours Assessment and Plan Time with Patient: Less than 30
[2022-08-02] MEDS ORDERED: MAGNESIUM SULFATE-D5W PMX 1 GM in DEXTROSE/WATER 1 100ML.BAG IVPB SCH (14:45)
--- NOTE | 2022-08-02 15:09 | P.PN ---
Subjective Progress Note Date: 08/02/22 CHIEF COMPLAINT: Incarcerated incisional hernia HISTORY OF PRESENT ILLNESS: Patient is postop day #4 status post open repair of incarcerated incisional hernia, small bowel resection and extensive lysis of adhesions. Patient's NG tube and [place] catheter were discontinued yesterday. Patient was able to tolerate water. She did have a large bowel movement and a lot of flatus. She is urinating without difficulty. She has been up and ambulating. She has minimal abdominal pain. She has been up and ambulating. She is a low-grade temp last night of 100. WBC 10.05 Hgb 10.1 platelets 269 sodium is 140 potassium is 3.4 creatinine 0.4 magnesium 1.8 NUBIA drain with serosanguineous output PHYSICAL EXAM: VITAL SIGNS: Reviewed. GENERAL: Well-developed in no acute distress. HEENT: No sclera icterus. Extraocular movements grossly intact. Moist buccal mucosa. Head is atraumatic, normocephalic. ABDOMEN: Soft. Nondistended. Nontender. Incision site clean dry and intact. NEUROLOGIC: Alert and oriented. Cranial nerves II through XII grossly intact. ASSESSMENT: 1. Incarcerated incisional hernia, small bowel perforation, extensive abdominal adhesions 2. Bacteremia 3. Hypokalemia and hypomagnesemia PLAN: -Advance diet to clear liquids -Continue pain medication -Continue antibiotics per ID service -Potassium and magnesium being replaced medicine service -Encouraged patient to ambulate -Patient can shower -Add [place] for oral pain medication -Encouraged patient to use incentive spirometer -GI prophylaxis Protonix and DVT prophylaxis subcu heparin Physician Central Office Repairer Supervisor note has been reviewed by physician. Signing provider agrees with the documented findings, assessment, and plan of care. I have personally seen and examined the patient, reviewed the CHISEL TRIMMER /PAs history, exam and MDM and agree with the assessment and plan as written. Based on total visit time, I have performed more than 50% of the visit. As above: Patient is doing well today. Tolerating liquid diet. She would like more to eat. Continue gradually increasing diet and activities. Anticipate discharge Saturday. Objective - Vital Signs Vital signs: Vital Signs Temp 98.5 F 08/02/22 13:30 Pulse 82 08/02/22 13:30 Resp 19 08/02/22 13:30 BP 165/97 08/02/22 13:30 Pulse Ox 96 08/02/22 13:30 FiO2 Intake & Output 08/01/22 08/02/22 08/02/22 18:59 06:59 18:59 Output Total 900 Balance -900 Weight 95.254 kg Output: Gastric Drainage 900 Other: Voiding Method Indwelling Catheter Toilet # Voids 2 - Labs CBC & Chem 7: 08/02/22 07:23 08/02/22 07:23 Labs: Abnormal Lab Results - Last 24 Hours (Table) 08/02/22 08/02/22 Range/Units 07:23 07:23 WBC 10.05 H (4.50-10.00) X 10*3/uL RBC 3.63 L (4.10-5.20) X 10*6/uL Hgb 10.1 L (12.0-15.0) g/dL Hct 32.7 L (37.2-46.3) % MCHC 30.9 L (32.0-37.0) g/dL RDW 14.8 H (11.5-14.5) % Immature Gran # 0.18 H (0.00-0.04) X 10*3/uL Potassium 3.4 L (3.5-5.5) mmol/L Anion Gap 9.80 L (10.00-18.00) mmol/L BUN 5.6 L (9.0-27.0) mg/dL Creatinine 0.4 L (0.6-1.5) mg/dL Glucose 111 H (70-110) mg/dL Calcium 8.3 L (8.7-10.3) mg/dL Microbiology - Last 24 Hours (Table) 07/30/22 09:58 Blood Culture - Preliminary Blood No Growth after 72 hours 07/31/22 05:50 Blood Culture - Preliminary Blood No Growth after 48 hours
[2022-08-02] MEDS: HYDROcodone/APAP 5-325MG 1 EACH TAB PO PRN ×2 (15:26→21:46)
[2022-08-02] MEDS ORDERED: MAGNESIUM OXIDE 400 MG TAB PO STA (15:34)
--- NOTE | 2022-08-02 19:14 | P.PN ---
Subjective Progress Note Date: 08/02/22 Principal diagnosis: Positive blood culture and incarcerated incisional hernia Patient is a 47 year old female with a past medical history significant for breast cancer the patient also have a history of midline incision for a gynecological oncological surgery many years ago requiring total abdominal hysterectomy, presented to hospital with abdominal pain CT of abdomi nal pelvis concerning for incarcerated incisional hernia patient is status post open repair of the incarcerated incisional hernia resection of portion of the bowel also have a positive blood culture finalized as possible micrococcus. On today's evaluation that is 08/02/2022, the patient denies any fever or chills, patient abdominal pain has decreased intensity, the patient and she has been discontinued and started on a clear liquid with the patient has been tolerating no nausea no vomiting no chest pain shortness of breath or cough Objective - Vital Signs Vital signs: Vital Signs Temp 98.3 F 08/02/22 07:58 Pulse 82 08/02/22 07:58 Resp 17 08/02/22 07:58 BP 141/84 08/02/22 07:58 Pulse Ox 93 L 08/02/22 07:58 FiO2 Intake & Output 08/01/22 08/02/22 08/02/22 18:59 06:59 18:59 Output Total 900 Balance -900 Weight 95.254 kg Output: Gastric Drainage 900 Other: Voiding Method Indwelling Catheter Toilet # Voids 2 - Exam GENERAL DESCRIPTION: Middle-age female lying in bed in no distress RESPIRATORY SYSTEM: Unlabored breathing , decreased breath sounds at bases HEART: S1 S2 regular rate and rhythm , ABDOMEN: Soft , no tenderness EXTREMITIES: No edema feet - Labs CBC & Chem 7: 08/02/22 07:23 08/02/22 07:23 Labs: Abnormal Lab Results - Last 24 Hours (Table) 08/01/22 Range/Units 05:52 Sodium 147 H (135-145) mmol/L Potassium 3.3 L (3.5-5.5) mmol/L Chloride 112 H (96-109) mmol/L Calcium 8.4 L (8.7-10.3) mg/dL Microbiology - Last 24 Hours (Table) 07/31/22 05:50 Blood Culture - Preliminary Blood No Growth after 48 hours 07/30/22 09:58 Blood Culture - Preliminary Blood No Growth after 48 hours Assessment and Plan (1) Sepsis Current Visit: Yes Status: Acute Code(s): A41.9 - SEPSIS, UNSPECIFIED ORGANISM SNOMED Code(s): 99426586 (2) Gram-positive bacteremia Current Visit: Yes Status: Acute Code(s): R78.81 - BACTEREMIA SNOMED Code(s): 173377010486 Plan: 1patient is in the hospital with sepsis in this patient who did a fever and elevated white count and abdominal pain secondary to incarcerated incisional hernia in this patient who is status post laparotomy and repair of the hernia and resection of the perforated small bowel along with extensive lysis of adhesion now with a positive blood cultures which has been finalized as possible micrococcus likely skin contamination 2blood cultures has been and are negative so far 3patient has shown clinical improvement and the white count has normalized, patient to continue the Zosyn while inpatient and will transition to oral antibiotics on discharge Time with Patient: Less than 30
[2022-08-03] MEDS: HEPARIN SODIUM,PORCINE/PF 5,000 UNIT/0.5 ML SYRINGE SQ SCH ×4 (01:28→23:46)
[2022-08-03] MEDS: PIPERACILLIN-TAZOBACTAM 3.375 GM in SODIUM CHLORIDE 0.9% 100 ML IVPB SCH ×4 (01:29→23:45)
[2022-08-03] MEDS: ONDANSETRON 4 MG/2 ML VIAL IVP PRN ×3 (05:36→20:56)
[2022-08-03] MEDS: HYDROcodone/APAP 5-325MG 1 EACH TAB PO PRN ×2 (06:26→15:00)
[2022-08-03] MEDS: PANTOPRAZOLE 40 MG/10 ML VIAL IV SCH (07:44)
[2022-08-03 09:26] LABS: Basophils # (A) 0.1 k/uL (0-0.2); Basophils % (A) 1 %; Eosinophils # (A) 0.1 k/uL (0-0.7); Eosinophils % (A) 1 %; HCT 35.9 % (34.0-46.0); HGB 11.7 gm/dL (11.4-16.0); Lymphocytes # (A) 1.3 k/uL (1.0-4.8); Lymphocytes % (A) 15 %; MCH 28.3 pg (25.0-35.0); MCHC 32.7 g/dL (31.0-37.0); MCV 86.7 fL (80.0-100.0); Mean Platelet Volume 8.6; Monocytes # (A) 0.6 k/uL (0-1.0); Monocytes % (A) 7 %; Neutrophils # (A) 6.3 k/uL (1.3-7.7); Neutrophils % (A) 74 %; Platelet Count 274 k/uL (150-450); RBC 4.14 m/uL (3.80-5.40); WBC 8.5 k/uL (3.8-10.6)
[2022-08-03] MEDS: D5W WITH KCL 20 MEQ/L 1,000 ML IV SCH (10:57)
[2022-08-03 10:58] LABS: Anion Gap 12.5 mmol/L (10.00-18.00); BUN/Creat Ratio 7.02 Ratio (12.00-20.00); Blood Urea Nitrogen 3.7 mg/dL (9.0-27.0); Calcium 8.5 mg/dL (8.7-10.3); Carbon Dioxide 24.8 mmol/L (20.0-27.5); Magnesium 1.8 mg/dL (1.5-2.4); Non-African American GFR(CKD) 112.1 (60.0-200.0); Potassium 3.3 mmol/L (3.5-5.5)
[2022-08-03 14:42] LABS: Appearance,Urine Clear (Clear); Bilirubin,Urine Negative (Negative); Blood,Urine Negative (Negative); Color,Urine Light Yellow; Glucose,Urine (UA) Negative (Negative); Ketones,Urine Negative (Negative); Leukocyte Esterase,Urine Negative (Negative); Nitrite,Urine Negative (Negative); Protein,Urine Negative (Negative); Specific Gravity,Urine 1.013 (1.001-1.035); Urobilinogen,Urine <2.0 mg/dL (<2.0)
--- NOTE | 2022-08-03 15:49 | P.PN ---
Subjective Progress Note Date: 08/03/22 Patient is a 47-year-old female with a past medical history of breast cancer, abdominal surgery due to gynecological oncology with large mass, anxiety presents ER with complaints of abdominal pain mainly in the mid abdomen. Patient does have history of incisional hernia. Patient developed sudden onset of mid abdominal pain that radiates to the upper and lower abdomen. With cramping and nausea vomiting episodes. CT of the abdomen pelvis done in the ER showed periumbilical hernia containing incarcerated loop of small bowel with mechanical small bowel obstruction. KUB x-ray showed NG tube in the stomach. EKG showed sinus rhythm. Patient was taken to the OR and is status post incarcerated hernia repair with small bowel resection due to perforation and lysis of additions. Postoperatively blood pressure is down to 96/52. Currently denies any complaints of dizziness or lightheadedness. No chest pain or shortness of breath. Nausea improved. Patient has been afebrile. Laboratory pressure WBC 16.4 hemoglobin 13.9 and platelets 294 sodium 140 potassium 3.8 chloride 108 bicarb is 24 BUN 13 and creatinine 0.53 and liver enzymes are not elevated. Lipase level is 110. 07/30/2022 Patient is postoperative day #1 incarcerated periumbilical hernia repair from SBO with lysis of adhesions. Continues with NG tube to suction. 600 mls of output overnight and currently 300 mls so far today. Continues to be NPO, reports not passing gas yet, bowel sounds are hypoactive today. Blood culture positive x 3 for gram positive cocci and repeat cultures taken today. ID has been consulted. Continues on IV metronidazole, IV zosyn. IV vancomycin has been added. White count trending down 18.36 today. On 3L nasal cannula, low grade fever today, blood pressure in the high 90s to 100s systolic. 07/31/2022 Patient is postoperative day #2 hernia repair with lysis of adhesions and resection of perforated small bowel. She continues with NG tube and has had about 2L of gastric output overnight. She has increased her oral intake with ice chips. Plan today is for NG tube to be clamped for patient to ambulate. She is not passing gas yet. Blood culture showing micrococcus species. ID is following. White count is down to 14.18, hgb 9.9. Remains, afebrile, on room air. Encouraged to use incentive spirometer. 08/01/2022 Patient is evaluated today postoperative day #3 hernia repair with lysis of adhesions and resection of perforated small bowel. She was able to ambulate yesterday and reports BM x 2 today and is now passing gas. She reports letting ice chips melt down and drinking water. Gastric output 900 mls in the last 24 hours. Has indwelling catheter and urine output 500 mls noted in the last 24 rowan rs. Sodium up to 147 today and potassium 3.3. White count has improved to 10.95, hemoglobin 10.1. Afebrile. Blood pressure elevated in the 160s/90s. Patient reports feeling stressed out. 08/02/2022 Patient is postoperative day #4 abdominal surgery for hernia repair lysis of adhesions and resection of small bowel. NG tube has been discontinued and plan for clear liquid diet today. She has had 3 BMs today. Does report some abdominal pain under right breast/rib cage area which she states she has had from prior surgeries. She has been ambulating. Continues on [id number] and sodium has improved to 140 today. Potassium 3.4, receiving oral supplementation. Patient did spike a fever of 100 last night. Pulse oxygen had dropped a bit and chest xray was taken which shows some consolidation left lower lobe possibly pneumonia. Repeat blood culture has been negative at 72 and 48 hours. Patient is continued on IV zosyn as per ID. 08/03/2022 Patient is postoperative day #5. NG tube was discontinued yesterday and diet was advanced. She had full liquid for dinner and had multiple episodes of emesis o vernight. Today she has decreased appetite, she is trying clear liquid diet. Repeat blood culture remains negative. White count normalized today to 8.5, sodium 144, potassium 3.3. She had fever overnight of 100 patient is educated on importance of sitting up in chair for meals, ambulating and using incentive spirometer 10 x an hour. She is pulling about [id number]. Urinalysis was done which is negative. Review of Systems Constitutional: Reports fatigue and fever x 1 Cardio vascular: denied any chest pain, palpitations Gastrointestinal: No nausea, vomiting or diarrhea. Passing gas, having BMs Pulmonary: Denied any shortness of breath cough Neurologic denied any new focal deficits All inpatient medications were reviewed and appropriate changes in these medications as dictated in the interval history and assessment and plan. PHYSICAL EXAMINATION: GENERAL: The patient is alert and oriented x3, not in any acute distress. Well developed, well nourished. HEENT: Pupils are round and equally reacting to light. EOMI. No scleral icterus. No conjunctival pallor. Normocephalic, atraumatic. No pharyngeal erythema. No thyromegaly. CARDIOVASCULAR: S1 and S2 present. No murmurs, rubs, or gallops. PULMONARY: Chest is clear to auscultation, no wheezing or crackles. Diminished ABDOMEN: Soft, tender, nondistended, Normoactive bowel sounds. No palpable organomegaly. Post surgical abdomen. MUSCULOSKELETAL: No joint swelling or deformity. EXTREMITIES: No cyanosis, clubbing, or pedal edema. NEUROLOGICAL: Gross neurological examination did not reveal any focal deficits. Generalized weakness. SKIN: No rashes. Assessment and Plan Assessment Incarcerated periumbilical hernia with small bowel mechanical obstruction. Status post hernia repair and bowel resection and lysis of additions. Postoperative day 5 Gram positive bacteremia possibly contamination showing micrococcus species with repeat negative so far vs. intra-abdominal source. ID following. Left lower lobe consolidation possibly pneumonia, hospital acquired. although patients white count has been improving on room air and has been maintained on IV zosyn. Leukocytosis resolved Hypernatremia resolved History of breast cancer History of gynecological surgery with resection of mass. Anxiety Obesity GI and DVT prophylaxis Full Code Plan: Continue with pain management Bowel regimen and incentive spirometry was encouraged. Continue with antibiotics Infectious disease consultation and follow up blood cultures Magnesium/potassium supplement and repeat labs in AM Thank you for your consult. The impression and plan of care has been dictated by Taylor Zazueta, Nurse Practitioner as directed. Dr. Noel MD I have performed a history and physical examination and medical decision making of this patient, discussed the same with the dictator, and agree with the dictators assessment and plan as written, documented as a scribe. Based on total visit time, I have performed more than 50% of this visit. Objective - Vital Signs Vital signs: Vital Signs Temp 98.1 F 08/03/22 07:12 Pulse 77 08/03/22 07:12 Resp 19 08/03/22 07:12 BP 114/87 08/03/22 07:12 Pulse Ox 95 08/03/22 08:54 FiO2 Intake & Output 08/02/22 08/03/22 08/03/22 18:59 06:59 18:59 Weight 95.254 kg Other: Voiding Method Toilet Toilet # Voids 4 5 # Bowel Movements 3 - Labs CBC & Chem 7: 08/03/22 06:01 08/03/22 06:01 Labs: Abnormal Lab Results - Last 24 Hours (Table) 08/03/22 Range/Units 06:01 Potassium 3.3 L (3.5-5.5) mmol/L BUN 3.7 L (9.0-27.0) mg/dL Creatinine 0.5 L (0.6-1.5) mg/dL BUN/Creatinine Ratio 7.02 L (12.00-20.00) Ratio Glucose 115 H (70-110) mg/dL Calcium 8.5 L (8.7-10.3) mg/dL Microbiology - Last 24 Hours (Table) 07/30/22 09:58 Blood Culture - Preliminary Blood No Growth after 96 hours 07/31/22 05:50 Blood Culture - Preliminary Blood No Growth after 72 hours Assessment and Plan Time with Patient: Less than 30
--- NOTE | 2022-08-03 15:55 | P.PN ---
Subjective Progress Note Date: 08/03/22 CHIEF COMPLAINT: Incarcerated incisional hernia HISTORY OF PRESENT ILLNESS: Patient is postop day #5 status post open repair of incarcerated incisional hernia, small bowel resection and extensive lysis of adhesions. Patient had vomiting and diarrhea last night after drinking the beef broth. Patient felt weak this morning. She denies abdominal pain. She did have a temp last night of 100.2. WBC is down from 10-8.5 Hgb is 11.7 platelets are 274 sodium is 144 potassium 3.3 creatinine 0.5 urinalysis negative. Patient had been on a full liquid diet. PHYSICAL EXAM: VITAL SIGNS: Reviewed. GENERAL: Well-developed in no acute distress. HEENT: No sclera icterus. Extraocular movements grossly intact. Moist buccal mucosa. Head is atraumatic, normocephalic. ABDOMEN: Soft. Nondistended. Nontender. Incision site clean dry and intact. NEUROLOGIC: Alert and oriented. Cranial nerves II through XII grossly intact. ASSESSMENT: 1. Incarcerated incisional hernia, small bowel perforation, extensive abdominal adhesions 2. Bacteremia 3. Hypokalemia and hypomagnesemia PLAN: -Downgrade diet to clear liquids -Continue pain medication -Continue antibiotics per ID service -Potassium and magnesium being replaced medicine service -Encouraged patient to ambulate -Encouraged patient to use incentive spirometer -GI prophylaxis Protonix and DVT prophylaxis subcu heparin Physician Door Framer note has been reviewed by physician. Signing provider agrees with the documented findings, assessment, and plan of care. I have personally seen and examined the patient, reviewed the HAM CLERK /PAs history, exam and MDM and agree with the assessment and plan as written. Based on total visit time, I have performed more than 50% of the visit. As above: Patient doing well today. This morning she had episodes of vomiting and nausea. She is back on clear liquids. No pain. She is ambulating. Continue clear liquids for now. Continue ambulation. Possible discharge over the weekend if doing well. Objective - Vital Signs Vital signs: Vital Signs Temp 98.1 F 08/03/22 07:12 Pulse 77 08/03/22 07:12 Resp 19 08/03/22 07:12 BP 114/87 08/03/22 07:12 Pulse Ox 95 08/03/22 08:54 FiO2 Intake & Output 08/02/22 08/03/22 08/03/22 18:59 06:59 18:59 Weight 95.254 kg Other: Voiding Method Toilet Toilet # Voids 4 5 # Bowel Movements 3 - Labs CBC & Chem 7: 08/03/22 06:01 08/03/22 06:01 Labs: Abnormal Lab Results - Last 24 Hours (Table) 08/03/22 Range/Units 06:01 Potassium 3.3 L (3.5-5.5) mmol/L BUN 3.7 L (9.0-27.0) mg/dL Creatinine 0.5 L (0.6-1.5) mg/dL BUN/Creatinine Ratio 7.02 L (12.00-20.00) Ratio Glucose 115 H (70-110) mg/dL Calcium 8.5 L (8.7-10.3) mg/dL Microbiology - Last 24 Hours (Table) 07/30/22 09:58 Blood Culture - Preliminary Blood No Growth after 96 hours 07/31/22 05:50 Blood Culture - Preliminary Blood No Growth after 72 hours
[2022-08-03] MEDS: MAGNESIUM OXIDE 400 MG TAB PO SCH (16:55)
[2022-08-03] MEDS: POTASSIUM BICARBONATE/CIT AC 20 MEQ TABLET.EFF PO SCH ×3 (16:55→18:12)
--- NOTE | 2022-08-03 19:41 | P.PN ---
Subjective Progress Note Date: 08/03/22 Principal diagnosis: Positive blood culture and incarcerated incisional hernia Patient is a 47 year old female with a past medical history significant for breast cancer the patient also have a history of midline incision for a gynecological oncological surgery many years ago requiring total abdominal hysterectomy, presented to hospital with abdominal pain CT of abdomi nal pelvis concerning for incarcerated incisional hernia patient is status post open repair of the incarcerated incisional hernia resection of portion of the bowel also have a positive blood culture finalized as possible micrococcus. On today's evaluation that is 08/03/2022, the patient did have a low diffusion 100.2F last night, the patient is afebrile since then, patient abdominal pain has decreased intensity, the patient is tolerating her diet, no nausea no vomiting no chest pain shortness of breath or cough Objective - Vital Signs Vital signs: Vital Signs Temp 98.1 F 08/03/22 07:12 Pulse 77 08/03/22 07:12 Resp 19 08/03/22 07:12 BP 114/87 08/03/22 07:12 Pulse Ox 95 08/03/22 08:54 FiO2 Intake & Output 08/02/22 08/03/22 08/03/22 18:59 06:59 18:59 Other: Voiding Method Toilet # Voids 4 5 # Bowel Movements 3 - Exam GENERAL DESCRIPTION: Middle-age female lying in bed in no distress RESPIRATORY SYSTEM: Unlabored breathing , decreased breath sounds at bases HEART: S1 S2 regular rate and rhythm , ABDOMEN: Soft , no tenderness EXTREMITIES: No edema feet - Labs CBC & Chem 7: 08/03/22 06:01 08/03/22 06:01 Labs: Abnormal Lab Results - Last 24 Hours (Table) 08/02/22 Range/Units 07:23 Potassium 3.4 L (3.5-5.5) mmol/L Anion Gap 9.80 L (10.00-18.00) mmol/L BUN 5.6 L (9.0-27.0) mg/dL Creatinine 0.4 L (0.6-1.5) mg/dL Glucose 111 H (70-110) mg/dL Calcium 8.3 L (8.7-10.3) mg/dL Microbiology - Last 24 Hours (Table) 07/31/22 05:50 Blood Culture - Preliminary Blood No Growth after 72 hours 07/30/22 09:58 Blood Culture - Preliminary Blood No Growth after 72 hours Assessment and Plan (1) Sepsis Current Visit: Yes Status: Acute Code(s): A41.9 - SEPSIS, UNSPECIFIED ORGANISM SNOMED Code(s): 35753369 (2) Gram-positive bacteremia Current Visit: Yes Status: Acute Code(s): R78.81 - BACTEREMIA SNOMED Code(s): 284932774945 Plan: 1patient is in the hospital with sepsis in this patient who did a fever and elevated white count and abdominal pain secondary to incarcerated incisional he rnia in this patient who is status post laparotomy and repair of the hernia and resection of the perforated small bowel along with extensive lysis of adhesion now with a positive blood cultures which has been finalized as possible micrococcus likely skin contamination 2blood cultures has been and are negative so far 3patient has shown clinical improvement and the white count has normalized, did have low-grade fever and also been afebrile this morning 4- patient to continue the Zosyn if remains to be afebrile plan to finish therapy with oral Augmentin on discharge Time with Patient: Less than 30
[2022-08-03] MEDS: HYDROmorphone 0.5 MG/0.5 ML SYRINGE IVP PRN (21:16)
[2022-08-04] MEDS: PIPERACILLIN-TAZOBACTAM 3.375 GM in SODIUM CHLORIDE 0.9% 100 ML IVPB SCH ×3 (07:33→23:39)
[2022-08-04] MEDS: HEPARIN SODIUM,PORCINE/PF 5,000 UNIT/0.5 ML SYRINGE SQ SCH ×3 (07:33→23:40)
[2022-08-04] MEDS: MAGNESIUM OXIDE 400 MG TAB PO SCH (07:33)
[2022-08-04] MEDS: ONDANSETRON 4 MG/2 ML VIAL IVP PRN ×3 (07:34→21:43)
[2022-08-04] MEDS: PANTOPRAZOLE 40 MG/10 ML VIAL IV SCH (07:34)
[2022-08-04] MEDS: DEXTROSE 5% IN WATER 1,000 ML with POTASSIUM CHLORIDE 40 MEQ IV SCH ×3 (07:49→23:46)
--- NOTE | 2022-08-04 10:58 | P.PN ---
Progress Note - Text Progress Note Date: 08/04/22 Patient still has complaints of incisional pain. She's requesting Morty. On exam vital signs are stable. Abdomen soft. Incision sites clean dry tach. Status post repair of incarcerated umbilical hernia with small bowel resection. Patient will have her diet advanced.
[2022-08-04 11:40] LABS: African American GFR (CKD) 122.8 (60.0-200.0); Anion Gap 14.6 mmol/L (10.00-18.00); BUN/Creat Ratio 6.41 Ratio (12.00-20.00); Calcium 8.7 mg/dL (8.7-10.3); Carbon Dioxide 24.1 mmol/L (20.0-27.5); Non-African American GFR(CKD) 105.9 (60.0-200.0); Potassium 3.9 mmol/L (3.5-5.5)
--- NOTE | 2022-08-04 13:49 | P.PN ---
Subjective Progress Note Date: 08/04/22 Patient is a 47-year-old female with a past medical history of breast cancer, abdominal surgery due to gynecological oncology with large mass, anxiety presents ER with complaints of abdominal pain mainly in the mid abdomen. Patient does have history of incisional hernia. Patient developed sudden onset of mid abdominal pain that radiates to the upper and lower abdomen. With cramping and nausea vomiting episodes. CT of the abdomen pelvis done in the ER showed periumbilical hernia containing incarcerated loop of small bowel with mechanical small bowel obstruction. KUB x-ray showed NG tube in the stomach. EKG showed sinus rhythm. Patient was taken to the OR and is status post incarcerated hernia repair with small bowel resection due to perforation and lysis of additions. Postoperatively blood pressure is down to 96/52. Currently denies any complaints of dizziness or lightheadedness. No chest pain or shortness of breath. Nausea improved. Patient has been afebrile. Laboratory pressure WBC 16.4 hemoglobin 13.9 and platelets 294 sodium 140 potassium 3.8 chloride 108 bicarb is 24 BUN 13 and creatinine 0.53 and liver enzymes are not elevated. Lipase level is 110. 07/30/2022 Patient is postoperative day #1 incarcerated periumbilical hernia repair from SBO with lysis of adhesions. Continues with NG tube to suction. 600 mls of output overnight and currently 300 mls so far today. Continues to be NPO, reports not passing gas yet, bowel sounds are hypoactive today. Blood culture positive x 3 for gram positive cocci and repeat cultures taken today. ID has been consulted. Continues on IV metronidazole, IV zosyn. IV vancomycin has been added. White count trending down 18.36 today. On 3L nasal cannula, low grade fever today, blood pressure in the high 90s to 100s systolic. 07/31/2022 Patient is postoperative day #2 hernia repair with lysis of adhesions and resection of perforated small bowel. She continues with NG tube and has had about 2L of gastric output overnight. She has increased her oral intake with ice chips. Plan today is for NG tube to be clamped for patient to ambulate. She is not passing gas yet. Blood culture showing micrococcus species. ID is following. White count is down to 14.18, hgb 9.9. Remains, afebrile, on room air. Encouraged to use incentive spirometer. 08/01/2022 Patient is evaluated today postoperative day #3 hernia repair with lysis of adhesions and resection of perforated small bowel. She was able to ambulate yesterday and reports BM x 2 today and is now passing gas. She reports letting ice chips melt down and drinking water. Gastric output 900 mls in the last 24 hours. Has indwelling catheter and urine output 500 mls noted in the last 24 rowan rs. Sodium up to 147 today and potassium 3.3. White count has improved to 10.95, hemoglobin 10.1. Afebrile. Blood pressure elevated in the 160s/90s. Patient reports feeling stressed out. 08/02/2022 Patient is postoperative day #4 abdominal surgery for hernia repair lysis of adhesions and resection of small bowel. NG tube has been discontinued and plan for clear liquid diet today. She has had 3 BMs today. Does report some abdominal pain under right breast/rib cage area which she states she has had from prior surgeries. She has been ambulating. Continues on [id number] and sodium has improved to 140 today. Potassium 3.4, receiving oral supplementation. Patient did spike a fever of 100 last night. Pulse oxygen had dropped a bit and chest xray was taken which shows some consolidation left lower lobe possibly pneumonia. Repeat blood culture has been negative at 72 and 48 hours. Patient is continued on IV zosyn as per ID. 08/03/2022 Patient is postoperative day #5. NG tube was discontinued yesterday and diet was advanced. She had full liquid for dinner and had multiple episodes of emesis o vernight. Today she has decreased appetite, she is trying clear liquid diet. Repeat blood culture remains negative. White count normalized today to 8.5, sodium 144, potassium 3.3. She had fever overnight of 100 patient is educated on importance of sitting up in chair for meals, ambulating and using incentive spirometer 10 x an hour. She is pulling about [id number]. Urinalysis was done which is negative. 08/04/2022 Postoperative day #6 abdominal surgery. Continues on clear liquids and has tolerated overnight. Repeat blood culture remains negative and will require oral antibiotics on discharge. IDC was removed 2 days ago and she is having some urinary retention 300 mls after voiding and post void residuals will be monitored at this time. Continues on IV fluids. Labs today showing sodium of 143, potassium 3.9, BUN 4.0, creatinine 0.6, glucose of 100. Remains afebrile in the last 48 hours and remains on room air. Ambulation and incentive spirometry encouraged. Review of Systems Constitutional: Reports fatigue, no fever, Cardio vascular: denied any chest pain, palpitations Gastrointestinal: No nausea, vomiting or diarrhea. Passing gas, having BMs Pulmonary: Denied any shortness of breath cough Neurologic denied any new focal deficits All inpatient medications were reviewed and appropriate changes in these medications as dictated in the interval history and assessment and plan. PHYSICAL EXAMINATION: GENERAL: The patient is alert and oriented x3, not in any acute distress. Well developed, well nourished. HEENT: Pupils are round and equally reacting to light. EOMI. No scleral icterus. No conjunctival pallor. Normocephalic, atraumatic. No pharyngeal erythema. No thyromegaly. CARDIOVASCULAR: S1 and S2 present. No murmurs, rubs, or gallops. PULMONARY: Chest is clear to auscultation, no wheezing or crackles. Diminished ABDOMEN: Soft, tender, nondistended, Normoactive bowel sounds. No palpable organomegaly. Post surgical abdomen. NUBIA drain in place LLQ with serosanguineous drainage. MUSCULOSKELETAL: No joint swelling or deformity. EXTREMITIES: No cyanosis, clubbing, or pedal edema. NEUROLOGICAL: Gross neurological examination did not reveal any focal deficits. Generalized weakness. SKIN: No rashes. Assessment and Plan Assessment Incarcerated periumbilical hernia with small bowel mechanical obstruction. Status post hernia repair and bowel resection and lysis of additions. Postoperative day 6 Gram positive bacteremia possibly contamination showing micrococcus species with repeat negative so far vs. intra-abdominal source. ID following. Left lower lobe consolidation possibly pneumonia, hospital acquired. although patients white count has been improving on room air and has been maintained on IV zosyn. Leukocytosis resolved Hypernatremia resolved History of breast cancer History of gynecological surgery with resection of mass. Anxiety Obesity GI and DVT prophylaxis Full Code Plan: Continue with pain management Bowel regimen and incentive spirometry was encouraged. Continue with antibiotics and oral augmention on dc recommend by ID Continue on IV fluids and clear liquid diet per surgery PT and OT have been consulted. Thank you for your consult. The impression and plan of care has been dictated by Taylor Zazueta, Nurse Practitioner as directed. Dr. Noel MD I have performed a history and physical examination and medical decision making of this patient, discussed the same with the dictator, and agree with the dictators assessment and plan as written, documented as a scribe. Based on total visit time, I have performed more than 50% of this visit. Objective - Vital Signs Vital signs: Vital Signs Temp 98.0 F 08/04/22 08:00 Pulse 72 08/04/22 08:00 Resp 18 08/04/22 08:00 BP 126/74 08/04/22 08:00 Pulse Ox 94 L 08/04/22 08:00 FiO2 Intake & Output 08/03/22 08/04/22 08/04/22 18:59 06:59 18:59 Output Total 4 375 Balance -4 -375 Weight 95.254 kg Output: Urine 4 Post Void Residual 375 Other: Voiding Method Toilet Toilet - Labs CBC & Chem 7: 08/03/22 06:01 08/04/22 07:12 Labs: Abnormal Lab Results - Last 24 Hours (Table) 08/04/22 Range/Units 07:12 BUN 4.0 L (9.0-27.0) mg/dL BUN/Creatinine Ratio 6.41 L (12.00-20.00) Ratio Microbiology - Last 24 Hours (Table) 07/30/22 09:58 Blood Culture - Preliminary Blood No Growth after 120 hours 07/31/22 05:50 Blood Culture - Preliminary Blood No Growth after 96 hours Assessment and Plan Time with Patient: Less than 30
[2022-08-04] MEDS: HYDROmorphone 0.5 MG/0.5 ML SYRINGE IVP PRN (21:15)
[2022-08-05] MEDS: MAGNESIUM OXIDE 400 MG TAB PO SCH (08:09)
[2022-08-05] MEDS: HEPARIN SODIUM,PORCINE/PF 5,000 UNIT/0.5 ML SYRINGE SQ SCH ×2 (08:09→15:29)
[2022-08-05] MEDS: PANTOPRAZOLE 40 MG/10 ML VIAL IV SCH (08:09)
[2022-08-05] MEDS: ONDANSETRON 4 MG/2 ML VIAL IVP PRN (09:52)
[2022-08-05] MEDS: HYDROmorphone 0.5 MG/0.5 ML SYRINGE IVP PRN ×3 (10:11→21:11)
--- NOTE | 2022-08-05 11:47 | P.PN ---
Progress Note - Text Progress Note Date: 08/05/22 The patient some complaints of nausea and some epigastric pain. She felt some cramping in the epigastric area. On exam vital signs are stable. Abdomen soft. Incisions clean dry tach. Status post repair of incarcerated umbilical hernia with small bowel resection. Patient to receive supportive care. Her diet will not be advanced.
--- NOTE | 2022-08-05 14:27 | P.PN ---
Subjective Progress Note Date: 08/04/22 Principal diagnosis: Positive blood culture and incarcerated incisional hernia Patient is a 47 year old female with a past medical history significant for breast cancer the patient also have a history of midline incision for a gynecological oncological surgery many years ago requiring total abdominal hysterectomy, presented to hospital with abdominal pain CT of abdomi nal pelvis concerning for incarcerated incisional hernia patient is status post open repair of the incarcerated incisional hernia resection of portion of the bowel also have a positive blood culture finalized as possible micrococcus. On today's evaluation that is 08/04/2022, the patient is afebrile today, patient abdominal pain is currently controlled, the patient is tolerating her diet, no nausea no vomiting no chest pain shortness of breath or cough Objective - Vital Signs Vital signs: Vital Signs Temp 98.0 F 08/04/22 08:00 Pulse 72 08/04/22 08:00 Resp 18 08/04/22 08:00 BP 126/74 08/04/22 08:00 Pulse Ox 94 L 08/04/22 08:00 FiO2 Intake & Output 08/03/22 08/04/22 08/04/22 18:59 06:59 18:59 Output Total 4 375 Balance -4 -375 Weight 95.254 kg Output: Urine 4 Post Void Residual 375 Other: Voiding Method Toilet Toilet - Exam GENERAL DESCRIPTION: Middle-age female lying in bed in no distress RESPIRATORY SYSTEM: Unlabored breathing , decreased breath sounds at bases HEART: S1 S2 regular rate and rhythm , ABDOMEN: Soft , no tenderness EXTREMITIES: No edema feet - Labs CBC & Chem 7: 08/03/22 06:01 08/04/22 07:12 Labs: Microbiology - Last 24 Hours (Table) 07/31/22 05:50 Blood Culture - Preliminary Blood No Growth after 96 hours 07/30/22 09:58 Blood Culture - Preliminary Blood No Growth after 96 hours Assessment and Plan (1) Sepsis Current Visit: Yes Status: Acute Code(s): A41.9 - SEPSIS, UNSPECIFIED ORGANISM SNOMED Code(s): 63551045 (2) Gram-positive bacteremia Current Visit: Yes Status: Acute Code(s): R78.81 - BACTEREMIA SNOMED Code(s): 833401630410 Plan: 1patient is in the hospital with sepsis in this patient who did a fever and elevated white count and abdominal pain secondary to incarcerated incisional hernia in this patient who is status post laparotomy and repair of the hernia and resection of the perforated small bowel along with extensive lysis of adhesion now with a positive blood cultures which has been finalized as possible micrococcus likely skin contamination 2blood cultures has been and are negative so far 3patient has shown clinical improvement and the white count has normalized 4- patient to continue the Zosyn while inpatient and monitor clinical course closely Time with Patient: Less than 30
--- NOTE | 2022-08-05 14:29 | P.PN ---
Subjective Progress Note Date: 08/05/22 Principal diagnosis: Positive blood culture and incarcerated incisional hernia Patient is a 47 year old female with a past medical history significant for breast cancer the patient also have a history of midline incision for a gynecological oncological surgery many years ago requiring total abdominal hysterectomy, presented to hospital with abdominal pain CT of abdomi nal pelvis concerning for incarcerated incisional hernia patient is status post open repair of the incarcerated incisional hernia resection of portion of the bowel also have a positive blood culture finalized as possible micrococcus. On today's evaluation that is 08/05/2022, the patient continues to be afebrile, patient did have some epigastric abdominal pain but no nausea no vomiting , the patient denies chest pain shortness of breath or cough Objective - Vital Signs Vital signs: Vital Signs Temp 99.0 F 08/05/22 14:00 Pulse 77 08/05/22 14:00 Resp 18 08/05/22 14:00 BP 130/84 08/05/22 14:00 Pulse Ox 96 08/05/22 14:00 FiO2 Intake & Output 08/04/22 08/05/22 08/05/22 18:59 06:59 18:59 Output Total 375 15 Balance -375 -15 Output: Drainage 15 Abdomen 15 Post Void Residual 375 Other: Voiding Method Toilet Toilet # Voids 1 3 - Exam GENERAL DESCRIPTION: Middle-age female lying in bed in no distress RESPIRATORY SYSTEM: Unlabored breathing , decreased breath sounds at bases HEART: S1 S2 regular rate and rhythm , ABDOMEN: Soft , incision is clean and intact per surgical note EXTREMITIES: No edema feet - Labs CBC & Chem 7: 08/03/22 06:01 08/04/22 07:12 Labs: Microbiology - Last 24 Hours (Table) 07/30/22 09:58 Blood Culture - Final Blood No Growth after 144 hours 07/31/22 05:50 Blood Culture - Preliminary Blood No Growth after 120 hours Assessment and Plan (1) Sepsis Current Visit: Yes Status: Acute Code(s): A41.9 - SEPSIS, UNSPECIFIED ORGANISM SNOMED Code(s): 15893187 (2) Gram-positive bacteremia Current Visit: Yes Status: Acute Code(s): R78.81 - BACTEREMIA SNOMED Code(s): 932878716567 Plan: 1patient is in the hospital with sepsis in this patient who did a fever and elevated white count and abdominal pain secondary to incarcerated incisional hernia in this patient who is status post laparotomy and repair of the hernia and resection of the perforated small bowel along with extensive lysis of adhesion now with a positive blood cultures which has been finalized as possible micrococcus likely skin contamination, repeat blood culture has been negative 2blood cultures has been and are negative so far 3patient is slowly clinically improving and the white count has normalized, patient currently being treated with the Zosyn to continue while inpatient transition or rheumatic on discharge Time with Patient: Less than 30
[2022-08-05] MEDS ORDERED: MAG HYDROX/AL HYDROX/SIMETH 30 ML CUP PO PRN (14:44)
--- NOTE | 2022-08-05 14:51 | P.PN ---
Subjective Progress Note Date: 08/05/22 Patient is a 47-year-old female with a past medical history of breast cancer, abdominal surgery due to gynecological oncology with large mass, anxiety presents ER with complaints of abdominal pain mainly in the mid abdomen. Patient does have history of incisional hernia. Patient developed sudden onset of mid abdominal pain that radiates to the upper and lower abdomen. With cramping and nausea vomiting episodes. CT of the abdomen pelvis done in the ER showed periumbilical hernia containing incarcerated loop of small bowel with mechanical small bowel obstruction. KUB x-ray showed NG tube in the stomach. EKG showed sinus rhythm. Patient was taken to the OR and is status post incarcerated hernia repair with small bowel resection due to perforation and lysis of additions. Postoperatively blood pressure is down to 96/52. Currently denies any complaints of dizziness or lightheadedness. No chest pain or shortness of breath. Nausea improved. Patient has been afebrile. Laboratory pressure WBC 16.4 hemoglobin 13.9 and platelets 294 sodium 140 potassium 3.8 chloride 108 bicarb is 24 BUN 13 and creatinine 0.53 and liver enzymes are not elevated. Lipase level is 110. 07/30/2022 Patient is postoperative day #1 incarcerated periumbilical hernia repair from SBO with lysis of adhesions. Continues with NG tube to suction. 600 mls of output overnight and currently 300 mls so far today. Continues to be NPO, reports not passing gas yet, bowel sounds are hypoactive today. Blood culture positive x 3 for gram positive cocci and repeat cultures taken today. ID has been consulted. Continues on IV metronidazole, IV zosyn. IV vancomycin has been added. White count trending down 18.36 today. On 3L nasal cannula, low grade fever today, blood pressure in the high 90s to 100s systolic. 07/31/2022 Patient is postoperative day #2 hernia repair with lysis of adhesions and resection of perforated small bowel. She continues with NG tube and has had about 2L of gastric output overnight. She has increased her oral intake with ice chips. Plan today is for NG tube to be clamped for patient to ambulate. She is not passing gas yet. Blood culture showing micrococcus species. ID is following. White count is down to 14.18, hgb 9.9. Remains, afebrile, on room air. Encouraged to use incentive spirometer. 08/01/2022 Patient is evaluated today postoperative day #3 hernia repair with lysis of adhesions and resection of perforated small bowel. She was able to ambulate yesterday and reports BM x 2 today and is now passing gas. She reports letting ice chips melt down and drinking water. Gastric output 900 mls in the last 24 hours. Has indwelling catheter and urine output 500 mls noted in the last 24 rowan rs. Sodium up to 147 today and potassium 3.3. White count has improved to 10.95, hemoglobin 10.1. Afebrile. Blood pressure elevated in the 160s/90s. Patient reports feeling stressed out. 08/02/2022 Patient is postoperative day #4 abdominal surgery for hernia repair lysis of adhesions and resection of small bowel. NG tube has been discontinued and plan for clear liquid diet today. She has had 3 BMs today. Does report some abdominal pain under right breast/rib cage area which she states she has had from prior surgeries. She has been ambulating. Continues on L1nndgg and sodium has improved to 140 today. Potassium 3.4, receiving oral supplementation. Patient did spike a fever of 100 last night. Pulse oxygen had dropped a bit and chest xray was taken which shows some consolidation left lower lobe possibly pneumonia. Repeat blood culture has been negative at 72 and 48 hours. Patient is continued on IV zosyn as per ID. 08/03/2022 Patient is postoperative day #5. NG tube was discontinued yesterday and diet was advanced. She had full liquid for dinner and had multiple episodes of emesis o vernight. Today she has decreased appetite, she is trying clear liquid diet. Repeat blood culture remains negative. White count normalized today to 8.5, sodium 144, potassium 3.3. She had fever overnight of 100 patient is educated on importance of sitting up in chair for meals, ambulating and using incentive spirometer 10 x an hour. She is pulling about [id number]. Urinalysis was done which is negative. 08/04/2022 Postoperative day #6 abdominal surgery. Continues on clear liquids and has tolerated overnight. Repeat blood culture remains negative and will require oral antibiotics on discharge. IDC was removed 2 days ago and she is having some urinary retention 300 mls after voiding and post void residuals will be monitored at this time. Continues on IV fluids. Labs today showing sodium of 143, potassium 3.9, BUN 4.0, creatinine 0.6, glucose of 100. Remains afebrile in the last 48 hours and remains on room air. Ambulation and incentive spirometry encouraged. 08/05/2022 Patient is evaluated today he is postoperative day #7 hernia repair lysis of adhesions and resection of small bowel. Continues off NG tube and tolerating liquid diet. She is reporting some epigastric burning and discomfort today and maalox will be added. She is maintained currently on IV protonix. Repeat blood cultures are negative and IV zosyn has been discontinued at this time having completed a 7 day course of antibiotic therapy. ID is recommending oral augmentin on discharge. Dressing intact to abdominal incision and NUBIA drain in place with serosanguineous drainage with 15 ml of output in the last 24 hours. She has a temp of 99 today, heart rate 77, blood pressure 130/84 and 96% room air. She is using incentive spirometer. Review of Systems Constitutional: Reports fatigue, no fever, Cardio vascular: denied any chest pain, palpitations Gastrointestinal: No nausea, vomiting or diarrhea. Passing gas, having BMs Pulmonary: Denied any shortness of breath cough Neurologic denied any new focal deficits All inpatient medications were reviewed and appropriate changes in these medications as dictated in the interval history and assessment and plan. PHYSICAL EXAMINATION: GENERAL: The patient is alert and oriented x3, not in any acute distress. Well developed, well nourished. HEENT: Pupils are round and equally reacting to light. EOMI. No scleral icterus. No conjunctival pallor. Normocephalic, atraumatic. No pharyngeal erythema. No thyromegaly. CARDIOVASCULAR: S1 and S2 present. No murmurs, rubs, or gallops. PULMONARY: Chest is clear to auscultation, no wheezing or crackles. Diminished ABDOMEN: Soft, tender, nondistended, Normoactive bowel sounds. No palpable organomegaly. Post surgical abdomen. NUBIA drain in place LLQ with serosanguineous drainage. MUSCULOSKELETAL: No joint swelling or deformity. EXTREMITIES: No cyanosis, clubbing, or pedal edema. NEUROLOGICAL: Gross neurological examination did not reveal any focal deficits. Generalized weakness. SKIN: No rashes. Assessment and Plan Assessment Incarcerated periumbilical hernia with small bowel mechanical obstruction. Stat us post hernia repair and bowel resection and lysis of additions. Postoperative day 7 Gram positive bacteremia possibly contamination showing micrococcus species with repeat negative so far vs. intra-abdominal source. ID following. Left lower lobe consolidation possibly pneumonia, hospital acquired. although patients white count has been improving on room air and has been maintained on IV zosyn. Leukocytosis resolved Hypernatremia resolved History of breast cancer History of gynecological surgery with resection of mass. Anxiety Obesity GI and DVT prophylaxis Full Code Plan: Continue with pain management Bowel regimen and incentive spirometry was encouraged. Continue with antibiotics and oral augmention on dc recommend by ID Continue on IV fluids and patient has been advanced to full liquid diet. PT and OT have been consulted. Thank you for your consult. The impression and plan of care has been dictated by Taylor Zazueta, Nurse Practitioner as directed. Dr. Noel MD I have performed a history and physical examination and medical decision making of this patient, discussed the same with the dictator, and agree with the dictators assessment and plan as written, documented as a scribe. Based on total visit time, I have performed more than 50% of this visit. Objective - Vital Signs Vital signs: Vital Signs Temp 98.7 F 08/05/22 07:12 Pulse 72 08/05/22 08:13 Resp 18 08/05/22 08:13 BP 139/82 08/05/22 07:12 Pulse Ox 94 L 08/05/22 07:44 FiO2 Intake & Output 08/04/22 08/05/22 08/05/22 18:59 06:59 18:59 Output Total 375 15 Balance -375 -15 Output: Drainage 15 Abdomen 15 Post Void Residual 375 Other: Voiding Method Toilet Toilet # Voids 1 3 - Labs CBC & Chem 7: 08/03/22 06:01 08/04/22 07:12 Labs: Abnormal Lab Results - Last 24 Hours (Table) 08/04/22 Range/Units 07:12 BUN 4.0 L (9.0-27.0) mg/dL BUN/Creatinine Ratio 6.41 L (12.00-20.00) Ratio Microbiology - Last 24 Hours (Table) 07/31/22 05:50 Blood Culture - Preliminary Blood No Growth after 120 hours 07/30/22 09:58 Blood Culture - Preliminary Blood No Growth after 120 hours Assessment and Plan Time with Patient: Less than 30
[2022-08-05] MEDS: DEXTROSE 5% IN WATER 1,000 ML with POTASSIUM CHLORIDE 40 MEQ IV SCH (21:14)
[2022-08-06] MEDS: DEXTROSE 5% IN WATER 1,000 ML with POTASSIUM CHLORIDE 40 MEQ IV SCH ×2 (00:26→17:27)
[2022-08-06] MEDS: PIPERACILLIN-TAZOBACTAM 3.375 GM in SODIUM CHLORIDE 0.9% 100 ML IVPB SCH ×4 (00:29→23:45)
[2022-08-06] MEDS: HEPARIN SODIUM,PORCINE/PF 5,000 UNIT/0.5 ML SYRINGE SQ SCH ×4 (00:29→23:45)
[2022-08-06] MEDS: HYDROmorphone 0.5 MG/0.5 ML SYRINGE IVP PRN ×5 (00:40→23:51)
[2022-08-06] MEDS: MAGNESIUM OXIDE 400 MG TAB PO SCH (08:50)
[2022-08-06] MEDS: PANTOPRAZOLE 40 MG/10 ML VIAL IV SCH (08:50)
[2022-08-06 08:56] LABS: Anion Gap 11.4 mmol/L (10.00-18.00); BUN/Creat Ratio 8.67 Ratio (12.00-20.00); Blood Urea Nitrogen 5.2 mg/dL (9.0-27.0); C Reactive Protein 2.1 mg/dL (0.00-0.80); Carbon Dioxide 27.6 mmol/L (20.0-27.5); Potassium 4.6 mmol/L (3.5-5.5)
[2022-08-06 09:22] LABS: Basophils # (A) 0.09 X 10*3/uL (0.00-0.10); Basophils % (A) 0.9 %; Eosinophils # (A) 0.23 X 10*3/uL (0.04-0.35); Eosinophils % (A) 2.3 %; HCT 38.1 % (37.2-46.3); HGB 11.3 g/dL (12.0-15.0); Immature Grans, Automated 4.7 %; Lymphocytes % (A) 26.4 %; MCH 27.4 pg (27.0-32.0); MCHC 29.7 g/dL (32.0-37.0); MCV 92.5 fL (80.0-97.0); Mean Platelet Volume 10.4 fL (9.5-12.2); Monocytes # (A) 0.83 X 10*3/uL (0.20-1.00); Monocytes % (A) 8.1 %; NRBC Per 100 WBC 0 /100 WBCS (0.0-0.0); Neutrophils # (A) 5.88 X 10*3/uL (1.80-7.70); Neutrophils % (A) 57.6 %; Platelet Count 319 X 10*3/uL (140-440); RBC 4.12 X 10*6/uL (4.10-5.20); RDW 15.4 % (11.5-14.5); WBC 10.21 X 10*3/uL (4.50-10.00)
--- NOTE | 2022-08-06 12:43 | P.PN ---
Subjective Progress Note Date: 08/06/22 Principal diagnosis: Positive blood culture and incarcerated incisional hernia Patient is a 47 year old female with a past medical history significant for breast cancer the patient also have a history of midline incision for a gynecological oncological surgery many years ago requiring total abdominal hysterectomy, presented to hospital with abdominal pain CT of abdomi nal pelvis concerning for incarcerated incisional hernia patient is status post open repair of the incarcerated incisional hernia resection of portion of the bowel also have a positive blood culture finalized as possible micrococcus. On today's evaluation that is 08/06/2022, the patient remains to be afebrile, patient feeling slightly better today no nausea no vomiting and abdominal pain has decreased in intensity, denies chest pain shortness of breath or cough Objective - Vital Signs Vital signs: Vital Signs Temp 98.5 F 08/06/22 07:15 Pulse 67 08/06/22 07:15 Resp 16 08/06/22 07:15 BP 122/78 08/06/22 07:15 Pulse Ox 93 L 08/06/22 07:15 FiO2 Intake & Output 08/05/22 08/06/22 08/06/22 18:59 06:59 18:59 Intake Total 1000 Output Total 15 0 Balance 985 0 Intake: Intake, IV Titration 1000 Amount Dextrose 5% in Water 1, 900 000 ml @ 75 mls/hr IV . [id number] ROXANA with Potassium Chloride 40 meq Rx#:[id number] Piperacillin-Tazobactam 3 100 .375 gm In Sodium Chloride 0.9% 100 ml @ 25 mls/hr IVPB Q8HR ROXANA Rx# :[id number] Output: Drainage 15 0 Abdomen 15 0 Other: Voiding Method Toilet Toilet # Voids 4 - Exam GENERAL DESCRIPTION: Middle-age female lying in bed in no distress RESPIRATORY SYSTEM: Unlabored breathing , decreased breath sounds at bases HEART: S1 S2 regular rate and rhythm , ABDOMEN: Soft , incision is clean and intact per surgical note EXTREMITIES: No edema feet - Labs CBC & Chem 7: 08/06/22 05:05 08/06/22 05:05 Labs: Abnormal Lab Results - Last 24 Hours (Table) 08/06/22 08/06/22 Range/Units 05:05 05:05 WBC 10.21 H (4.50-10.00) X 10*3/uL Hgb 11.3 L (12.0-15.0) g/dL MCHC 29.7 L (32.0-37.0) g/dL RDW 15.4 H (11.5-14.5) % Immature Gran # 0.48 H (0.00-0.04) X 10*3/uL Carbon Dioxide 27.6 H (20.0-27.5) mmol/L BUN 5.2 L (9.0-27.0) mg/dL BUN/Creatinine Ratio 8.67 L (12.00-20.00) Ratio C-Reactive Protein 2.10 H (0.00-0.80) mg/dL Microbiology - Last 24 Hours (Table) 07/31/22 05:50 Blood Culture - Final Blood No Growth after 144 hours 07/30/22 09:58 Blood Culture - Final Blood No Growth after 144 hours Assessment and Plan (1) Sepsis Current Visit: Yes Status: Acute Code(s): A41.9 - SEPSIS, UNSPECIFIED ORGANISM SNOMED Code(s): 31305723 (2) Gram-positive bacteremia Current Visit: Yes Status: Acute Code(s): R78.81 - BACTEREMIA SNOMED Code(s): 193548928277 Plan: 1patient is in the hospital with sepsis in this patient who did a fever and elevated white count and abdominal pain secondary to incarcerated incisional hernia in this patient who is status post laparotomy and repair of the hernia and resection of the perforated small bowel along with extensive lysis of adhesion now with a positive blood cultures which has been finalized as possible micrococcus likely skin contamination, repeat blood culture has been negative 2blood cultures has been and are negative so far 3patient had shown clinical improvement and the patient white count is normal, patient continue with the Zosyn to continue while inpatient transition to oral Augmentin on discharge
[2022-08-06] MEDS ORDERED: DEXTROSE 5% IN WATER 1,000 ML IV ONE (13:15)
--- NOTE | 2022-08-06 13:22 | P.PN ---
Subjective Progress Note Date: 08/06/22 Patient is a 47-year-old female with a past medical history of breast cancer, abdominal surgery due to gynecological oncology with large mass, anxiety presents ER with complaints of abdominal pain mainly in the mid abdomen. Patient does have history of incisional hernia. Patient developed sudden onset of mid abdominal pain that radiates to the upper and lower abdomen. With cramping and nausea vomiting episodes. CT of the abdomen pelvis done in the ER showed periumbilical hernia containing incarcerated loop of small bowel with mechanical small bowel obstruction. KUB x-ray showed NG tube in the stomach. EKG showed sinus rhythm. Patient was taken to the OR and is status post incarcerated hernia repair with small bowel resection due to perforation and lysis of additions. Postoperatively blood pressure is down to 96/52. Currently denies any complaints of dizziness or lightheadedness. No chest pain or shortness of breath. Nausea improved. Patient has been afebrile. Laboratory pressure WBC 16.4 hemoglobin 13.9 and platelets 294 sodium 140 potassium 3.8 chloride 108 bicarb is 24 BUN 13 and creatinine 0.53 and liver enzymes are not elevated. Lipase level is 110. 07/30/2022 Patient is postoperative day #1 incarcerated periumbilical hernia repair from SBO with lysis of adhesions. Continues with NG tube to suction. 600 mls of output overnight and currently 300 mls so far today. Continues to be NPO, reports not passing gas yet, bowel sounds are hypoactive today. Blood culture positive x 3 for gram positive cocci and repeat cultures taken today. ID has been consulted. Continues on IV metronidazole, IV zosyn. IV vancomycin has been added. White count trending down 18.36 today. On 3L nasal cannula, low grade fever today, blood pressure in the high 90s to 100s systolic. 07/31/2022 Patient is postoperative day #2 hernia repair with lysis of adhesions and resection of perforated small bowel. She continues with NG tube and has had about 2L of gastric output overnight. She has increased her oral intake with ice chips. Plan today is for NG tube to be clamped for patient to ambulate. She is not passing gas yet. Blood culture showing micrococcus species. ID is following. White count is down to 14.18, hgb 9.9. Remains, afebrile, on room air. Encouraged to use incentive spirometer. 08/01/2022 Patient is evaluated today postoperative day #3 hernia repair with lysis of adhesions and resection of perforated small bowel. She was able to ambulate yesterday and reports BM x 2 today and is now passing gas. She reports letting ice chips melt down and drinking water. Gastric output 900 mls in the last 24 hours. Has indwelling catheter and urine output 500 mls noted in the last 24 rowan rs. Sodium up to 147 today and potassium 3.3. White count has improved to 10.95, hemoglobin 10.1. Afebrile. Blood pressure elevated in the 160s/90s. Patient reports feeling stressed out. 08/02/2022 Patient is postoperative day #4 abdominal surgery for hernia repair lysis of adhesions and resection of small bowel. NG tube has been discontinued and plan for clear liquid diet today. She has had 3 BMs today. Does report some abdominal pain under right breast/rib cage area which she states she has had from prior surgeries. She has been ambulating. Continues on [id number] and sodium has improved to 140 today. Potassium 3.4, receiving oral supplementation. Patient did spike a fever of 100 last night. Pulse oxygen had dropped a bit and chest xray was taken which shows some consolidation left lower lobe possibly pneumonia. Repeat blood culture has been negative at 72 and 48 hours. Patient is continued on IV zosyn as per ID. 08/03/2022 Patient is postoperative day #5. NG tube was discontinued yesterday and diet was advanced. She had full liquid for dinner and had multiple episodes of emesis o vernight. Today she has decreased appetite, she is trying clear liquid diet. Repeat blood culture remains negative. White count normalized today to 8.5, sodium 144, potassium 3.3. She had fever overnight of 100 patient is educated on importance of sitting up in chair for meals, ambulating and using incentive spirometer 10 x an hour. She is pulling about [id number]. Urinalysis was done which is negative. 08/04/2022 Postoperative day #6 abdominal surgery. Continues on clear liquids and has tolerated overnight. Repeat blood culture remains negative and will require oral antibiotics on discharge. IDC was removed 2 days ago and she is having some urinary retention 300 mls after voiding and post void residuals will be monitored at this time. Continues on IV fluids. Labs today showing sodium of 143, potassium 3.9, BUN 4.0, creatinine 0.6, glucose of 100. Remains afebrile in the last 48 hours and remains on room air. Ambulation and incentive spirometry encouraged. 08/05/2022 Patient is evaluated today he is postoperative day #7 hernia repair lysis of adhesions and resection of small bowel. Continues off NG tube and tolerating liquid diet. She is reporting some epigastric burning and discomfort today and maalox will be added. She is maintained currently on IV protonix. Repeat blood cultures are negative and IV zosyn has been discontinued at this time having completed a 7 day course of antibiotic therapy. ID is recommending oral augmentin on discharge. Dressing intact to abdominal incision and NUBIA drain in place with serosanguineous drainage with 15 ml of output in the last 24 hours. She has a temp of 99 today, heart rate 77, blood pressure 130/84 and 96% room air. She is using incentive spirometer. 08/06/2022 Patient is postoperative day #8 hernia repair lysis of adhesions and resection of small bowel. She continues on liquid diet. and is hoping to be advanced to regular/soft diet for different food options. She is having bowel movements. She is denying shortness of breath, reports heartburn has improved and she did pass alot of gas overnight. Remains on IV zosyn with plan for oral antibiotics on discharge. ID is following. Labs today showing sodium of 143, potassium 4.6, BUN 5.2, creatinine 0.6. Review of Systems Constitutional: Reports fatigue, no fever, Cardio vascular: denied any chest pain, palpitations Gastrointestinal: No nausea, vomiting or diarrhea. Passing gas, having BMs Pulmonary: Denied any shortness of breath cough Neurologic denied any new focal deficits All inpatient medications were reviewed and appropriate changes in these medications as dictated in the interval history and assessment and plan. PHYSICAL EXAMINATION: GENERAL: The patient is alert and oriented x3, not in any acute distress. Well developed, well nourished. HEENT: Pupils are round and equally reacting to light. EOMI. No scleral icterus. No conjunctival pallor. Normocephalic, atraumatic. No pharyngeal erythema. No thyromegaly. CARDIOVASCULAR: S1 and S2 present. No murmurs, rubs, or gallops. PULMONARY: Chest is clear to auscultation, no wheezing or crackles. Diminished ABDOMEN: Soft, tender, nondistended, Normoactive bowel sounds. No palpable organomegaly. Post surgical abdomen. NUBIA drain in place LLQ with serosanguineous drainage. MUSCULOSKELETAL: No joint swelling or deformity. EXTREMITIES: No cyanosis, clubbing, or pedal edema. NEUROLOGICAL: Gross neurological examination did not reveal any focal deficits. Generalized weakness. SKIN: No rashes. Assessment and Plan Assessment Incarcerated periumbilical hernia with small bowel mechanical obstruction. Status post hernia repair and bowel resection and lysis of additions. Postoperative day 8 Gram positive bacteremia possibly contamination showing micrococcus species with repeat negative so far vs. intra-abdominal source. ID following. Left lower lobe consolidation possibly pneumonia, hospital acquired. although patients white count has been improving on room air and has been maintained on IV zosyn. Leukocytosis resolved Hypernatremia resolved History of breast cancer History of gynecological surgery with resection of mass. Anxiety Obesity GI and DVT prophylaxis Full Code Plan: Continue with pain management Bowel regimen and incentive spirometry was encouraged. Continue with antibiotics and oral augmention on dc recommend by ID Decrease IV fluids and patient continues on liquid diet per surgery PT and OT have been consulted. Thank you for your consultation we will continue to follow and make recommendations. The impression and plan of care has been dictated by Taylor Zazueta, Nurse Practitioner as directed. Dr. Noel MD I have performed a history and physical examination and medical decision making of this patient, discussed the same with the dictator, and agree with the dictators assessment and plan as written, documented as a scribe. Based on total visit time, I have performed more than 50% of this visit. Objective - Vital Signs Vital signs: Vital Signs Temp 98.5 F 08/06/22 07:15 Pulse 67 08/06/22 07:15 Resp 16 08/06/22 07:15 BP 122/78 08/06/22 07:15 Pulse Ox 93 L 08/06/22 07:15 FiO2 Intake & Output 08/05/22 08/06/22 08/06/22 18:59 06:59 18:59 Intake Total 1000 Output Total 15 0 Balance 985 0 Intake: Intake, IV Titration 1000 Amount Dextrose 5% in Water 1, 900 000 ml @ 75 mls/hr IV . [id number] ROXANA with Potassium Chloride 40 meq Rx#:[id number] Piperacillin-Tazobactam 3 100 .375 gm In Sodium Chloride 0.9% 100 ml @ 25 mls/hr IVPB Q8HR [facility] Rx# :[id number] Output: Drainage 15 0 Abdomen 15 0 Other: Voiding Method Toilet Toilet # Voids 4 - Labs CBC & Chem 7: 08/06/22 05:05 08/06/22 05:05 Labs: Abnormal Lab Results - Last 24 Hours (Table) 08/06/22 08/06/22 Range/Units 05:05 05:05 WBC 10.21 H (4.50-10.00) X 10*3/uL Hgb 11.3 L (12.0-15.0) g/dL MCHC 29.7 L (32.0-37.0) g/dL RDW 15.4 H (11.5-14.5) % Immature Gran # 0.48 H (0.00-0.04) X 10*3/uL Carbon Dioxide 27.6 H (20.0-27.5) mmol/L BUN 5.2 L (9.0-27.0) mg/dL BUN/Creatinine Ratio 8.67 L (12.00-20.00) Ratio C-Reactive Protein 2.10 H (0.00-0.80) mg/dL Microbiology - Last 24 Hours (Table) 07/31/22 05:50 Blood Culture - Final Blood No Growth after 144 hours 07/30/22 09:58 Blood Culture - Final Blood No Growth after 144 hours Assessment and Plan Time with Patient: Less than 30
--- NOTE | 2022-08-06 17:03 | P.PN ---
Subjective Progress Note Date: 08/06/22 Principal diagnosis: Small bowel perforation Patient doing better today. She is ambulating. No seen in pain. No nausea today. Tolerating full liquids. Patient states she would like to go home tomorrow. Objective - Vital Signs Vital signs: Vital Signs Temp 97.6 F 08/06/22 14:00 Pulse 71 08/06/22 14:00 Resp 16 08/06/22 14:00 BP 127/76 08/06/22 14:00 Pulse Ox 94 L 08/06/22 14:00 FiO2 Intake & Output 08/05/22 08/06/22 08/06/22 18:59 06:59 18:59 Intake Total 1000 Output Total 15 0 0 Balance 985 0 0 Intake: Intake, IV Titration 1000 Amount Dextrose 5% in Water 1, 900 000 ml @ 75 mls/hr IV . [id number] ROXANA with Potassium Chloride 40 meq Rx#:[id number] Piperacillin-Tazobactam 3 100 .375 gm In Sodium Chloride 0.9% 100 ml @ 25 mls/hr IVPB Q8HR ROXANA Rx# :[id number] Output: Drainage 15 0 0 Abdomen 15 0 0 Other: Voiding Method Toilet Toilet # Voids 4 3 # Bowel Movements 1 - Exam Abdomen: Soft, nondistended, incision clean and dry, nontender - Labs CBC & Chem 7: 08/06/22 05:05 08/06/22 05:05 Labs: Abnormal Lab Results - Last 24 Hours (Table) 08/06/22 08/06/22 Range/Units 05:05 05:05 WBC 10.21 H (4.50-10.00) X 10*3/uL Hgb 11.3 L (12.0-15.0) g/dL MCHC 29.7 L (32.0-37.0) g/dL RDW 15.4 H (11.5-14.5) % Immature Gran # 0.48 H (0.00-0.04) X 10*3/uL Carbon Dioxide 27.6 H (20.0-27.5) mmol/L BUN 5.2 L (9.0-27.0) mg/dL BUN/Creatinine Ratio 8.67 L (12.00-20.00) Ratio C-Reactive Protein 2.10 H (0.00-0.80) mg/dL Microbiology - Last 24 Hours (Table) 07/31/22 05:50 Blood Culture - Final Blood No Growth after 144 hours 07/30/22 09:58 Blood Culture - Final Blood No Growth after 144 hours Assessment and Plan (1) Small bowel perforation Narrative/Plan: Overall patient doing better. Continue increasing activity. Advance diet for tomorrow's breakfast. Possible discharge tomorrow if tolerates. Current Visit: Yes Status: Acute Code(s): K63.1 - PERFORATION OF INTESTINE (NONTRAUMATIC) SNOMED Code(s): 250718867
[2022-08-07] MEDS: HYDROmorphone 0.5 MG/0.5 ML SYRINGE IVP PRN ×5 (06:01→23:59)
[2022-08-07] MEDS: PANTOPRAZOLE 40 MG/10 ML VIAL IV SCH (08:13)
[2022-08-07] MEDS: PIPERACILLIN-TAZOBACTAM 3.375 GM in SODIUM CHLORIDE 0.9% 100 ML IVPB SCH ×2 (08:14→16:32)
[2022-08-07] MEDS: HEPARIN SODIUM,PORCINE/PF 5,000 UNIT/0.5 ML SYRINGE SQ SCH ×3 (08:14→23:59)
[2022-08-07] MEDS: MAGNESIUM OXIDE 400 MG TAB PO SCH (08:15)
--- NOTE | 2022-08-07 16:24 | P.PN ---
Subjective Progress Note Date: 08/07/22 Principal diagnosis: Small bowel perforation Patient was doing well. Last night apparently she began experiencing some vague soreness upper abdomen. More on the right side. No fevers. No nausea or vomiting. Tolerating diet thus far. Objective - Vital Signs Vital signs: Vital Signs Temp 98.1 F 08/07/22 08:00 Pulse 78 08/07/22 08:00 Resp 16 08/07/22 08:00 BP 111/65 08/07/22 08:00 Pulse Ox 93 L 08/07/22 08:00 FiO2 Intake & Output 08/06/22 08/07/22 08/07/22 18:59 06:59 18:59 Output Total 20 10 Balance -20 -10 Weight 95.254 kg Output: Drainage 20 10 Abdomen 20 10 Other: Voiding Method Toilet # Voids 2 5 # Bowel Movements 1 - Exam Abdomen: Soft, nondistended, incision clean dry, mild right upper quadrant tenderness, NUBIA in place - Labs CBC & Chem 7: 08/06/22 05:05 08/06/22 05:05 Assessment and Plan (1) Small bowel perforation Narrative/Plan: Patient with some recurrent pain last night and again tenderness today. When asked patient says she has no pain currently. Options reviewed. Will obtain CT abdomen and pelvis to evaluate for intra-abdominal pathology prior to discharge. This will be ordered for tomorrow morning. Current Visit: Yes Status: Acute Code(s): K63.1 - PERFORATION OF INTESTINE (NONTRAUMATIC) SNOMED Code(s): 205131143
--- NOTE | 2022-08-07 16:53 | P.PN ---
Subjective Progress Note Date: 08/07/22 Patient is a 47-year-old female with a past medical history of breast cancer, abdominal surgery due to gynecological oncology with large mass, anxiety presents ER with complaints of abdominal pain mainly in the mid abdomen. Patient does have history of incisional hernia. Patient developed sudden onset of mid abdominal pain that radiates to the upper and lower abdomen. With cramping and nausea vomiting episodes. CT of the abdomen pelvis done in the ER showed periumbilical hernia containing incarcerated loop of small bowel with mechanical small bowel obstruction. KUB x-ray showed NG tube in the stomach. EKG showed sinus rhythm. Patient was taken to the OR and is status post incarcerated hernia repair with small bowel resection due to perforation and lysis of additions. Postoperatively blood pressure is down to 96/52. Currently denies any complaints of dizziness or lightheadedness. No chest pain or shortness of breath. Nausea improved. Patient has been afebrile. Laboratory pressure WBC 16.4 hemoglobin 13.9 and platelets 294 sodium 140 potassium 3.8 chloride 108 bicarb is 24 BUN 13 and creatinine 0.53 and liver enzymes are not elevated. Lipase level is 110. 07/30/2022 Patient is postoperative day #1 incarcerated periumbilical hernia repair from SBO with lysis of adhesions. Continues with NG tube to suction. 600 mls of output overnight and currently 300 mls so far today. Continues to be NPO, reports not passing gas yet, bowel sounds are hypoactive today. Blood culture positive x 3 for gram positive cocci and repeat cultures taken today. ID has been consulted. Continues on IV metronidazole, IV zosyn. IV vancomycin has been added. White count trending down 18.36 today. On 3L nasal cannula, low grade fever today, blood pressure in the high 90s to 100s systolic. 07/31/2022 Patient is postoperative day #2 hernia repair with lysis of adhesions and resection of perforated small bowel. She continues with NG tube and has had about 2L of gastric output overnight. She has increased her oral intake with ice chips. Plan today is for NG tube to be clamped for patient to ambulate. She is not passing gas yet. Blood culture showing micrococcus species. ID is following. White count is down to 14.18, hgb 9.9. Remains, afebrile, on room air. Encouraged to use incentive spirometer. 08/01/2022 Patient is evaluated today postoperative day #3 hernia repair with lysis of adhesions and resection of perforated small bowel. She was able to ambulate yesterday and reports BM x 2 today and is now passing gas. She reports letting ice chips melt down and drinking water. Gastric output 900 mls in the last 24 hours. Has indwelling catheter and urine output 500 mls noted in the last 24 rowan rs. Sodium up to 147 today and potassium 3.3. White count has improved to 10.95, hemoglobin 10.1. Afebrile. Blood pressure elevated in the 160s/90s. Patient reports feeling stressed out. 08/02/2022 Patient is postoperative day #4 abdominal surgery for hernia repair lysis of adhesions and resection of small bowel. NG tube has been discontinued and plan for clear liquid diet today. She has had 3 BMs today. Does report some abdominal pain under right breast/rib cage area which she states she has had from prior surgeries. She has been ambulating. Continues on [id number] and sodium has improved to 140 today. Potassium 3.4, receiving oral supplementation. Patient did spike a fever of 100 last night. Pulse oxygen had dropped a bit and chest xray was taken which shows some consolidation left lower lobe possibly pneumonia. Repeat blood culture has been negative at 72 and 48 hours. Patient is continued on IV zosyn as per ID. 08/03/2022 Patient is postoperative day #5. NG tube was discontinued yesterday and diet was advanced. She had full liquid for dinner and had multiple episodes of emesis o vernight. Today she has decreased appetite, she is trying clear liquid diet. Repeat blood culture remains negative. White count normalized today to 8.5, sodium 144, potassium 3.3. She had fever overnight of 100 patient is educated on importance of sitting up in chair for meals, ambulating and using incentive spirometer 10 x an hour. She is pulling about [id number]. Urinalysis was done which is negative. 08/04/2022 Postoperative day #6 abdominal surgery. Continues on clear liquids and has tolerated overnight. Repeat blood culture remains negative and will require oral antibiotics on discharge. IDC was removed 2 days ago and she is having some urinary retention 300 mls after voiding and post void residuals will be monitored at this time. Continues on IV fluids. Labs today showing sodium of 143, potassium 3.9, BUN 4.0, creatinine 0.6, glucose of 100. Remains afebrile in the last 48 hours and remains on room air. Ambulation and incentive spirometry encouraged. 08/05/2022 Patient is evaluated today he is postoperative day #7 hernia repair lysis of adhesions and resection of small bowel. Continues off NG tube and tolerating liquid diet. She is reporting some epigastric burning and discomfort today and maalox will be added. She is maintained currently on IV protonix. Repeat blood cultures are negative and IV zosyn has been discontinued at this time having completed a 7 day course of antibiotic therapy. ID is recommending oral augmentin on discharge. Dressing intact to abdominal incision and NUBIA drain in place with serosanguineous drainage with 15 ml of output in the last 24 hours. She has a temp of 99 today, heart rate 77, blood pressure 130/84 and 96% room air. She is using incentive spirometer. 08/06/2022 Patient is postoperative day #8 hernia repair lysis of adhesions and resection of small bowel. She continues on liquid diet. and is hoping to be advanced to regular/soft diet for different food options. She is having bowel movements. She is denying shortness of breath, reports heartburn has improved and she did pass alot of gas overnight. Remains on IV zosyn with plan for oral antibiotics on discharge. ID is following. Labs today showing sodium of 143, potassium 4.6, BUN 5.2, creatinine 0.6. 08/07/2022 Patient is postoperative day #9. She has been advanced to low fiber diet today and has been tolerating. She has been increasing activity and has been ambula ting. Denies any nausea. IV fluids have been discontinued. Her main complaint is some abdominal pain along the upper right abdomen she is unsure whether from prior surgery. But she did require a dose of IV dilaudid today. Surgery has ordered abdominal/pelvis CT for further evaluation to be completed in the morning. Remains afebrile, heart rate 78, blood pressure 111/65, 93% on room air. Review of Systems Constitutional: Reports fatigue, no fever, Cardio vascular: denied any chest pain, palpitations Gastrointestinal: No nausea, vomiting or diarrhea. Passing gas, having BMs. Has some right upper quad abdominal pain. Pulmonary: Denied any shortness of breath cough Neurologic denied any new focal deficits All inpatient medications were reviewed and appropriate changes in these medications as dictated in the interval history and assessment and plan. PHYSICAL EXAMINATION: GENERAL: The patient is alert and oriented x3, not in any acute distress. Well developed, well nourished. HEENT: Pupils are round and equally reacting to light. EOMI. No scleral icterus. No conjunctival pallor. Normocephalic, atraumatic. No pharyngeal erythema. No thyromegaly. CARDIOVASCULAR: S1 and S2 present. No murmurs, rubs, or gallops. PULMONARY: Chest is clear to auscultation, no wheezing or crackles. Diminished ABDOMEN: Soft, tender, nondistended, Normoactive bowel sounds. No palpable organomegaly. Post surgical abdomen. NUBIA drain in place LLQ with serosanguineous drainage. MUSCULOSKELETAL: No joint swelling or deformity. EXTREMITIES: No cyanosis, clubbing, or pedal edema. NEUROLOGICAL: Gross neurological examination did not reveal any focal deficits. Generalized weakness. SKIN: No rashes. Assessment and Plan Assessment Incarcerated periumbilical hernia with small bowel mechanical obstruction. Status post hernia repair and bowel resection and lysis of additions. Postoperative day 9 Gram positive bacteremia possibly contamination showing micrococcus species with repeat negative so far vs. intra-abdominal source. ID following. Left lower lobe consolidation possibly pneumonia, hospital acquired. although patients white count has been improving on room air and has been maintained on IV zosyn. Leukocytosis resolved Hypernatremia resolved History of breast cancer History of gynecological surgery with resection of mass. Anxiety Obesity GI and DVT prophylaxis Full Code Plan: Continue with pain management Bowel regimen and incentive spirometry was encouraged. Continue with antibiotics and oral augmention on dc recommend by ID Diet has been advanced by surgery and IV fluids will be discontinued Abdominal/Pelvis CT in AM Home with HC on discharge Thank you for your consultation we will continue to follow and make recommendations. The impression and plan of care has been dictated by Taylor Zazueta, Nurse Practitioner as directed. Dr. Noel MD I have performed a history and physical examination and medical decision making of this patient, discussed the same with the dictator, and agree with the dictators assessment and plan as written, documented as a scribe. Based on total visit time, I have performed more than 50% of this visit. Objective - Vital Signs Vital signs: Vital Signs Temp 98.1 F 08/07/22 08:00 Pulse 78 08/07/22 08:00 Resp 16 08/07/22 08:00 BP 111/65 08/07/22 08:00 Pulse Ox 93 L 08/07/22 08:00 FiO2 Intake & Output 08/06/22 08/07/22 08/07/22 18:59 06:59 18:59 Output Total 20 10 Balance -20 -10 Weight 95.254 kg Output: Drainage 20 10 Abdomen 20 10 Other: Voiding Method Toilet # Voids 2 5 # Bowel Movements 1 - Labs CBC & Chem 7: 08/06/22 05:05 08/06/22 05:05 Assessment and Plan Time with Patient: Less than 30
--- NOTE | 2022-08-07 21:49 | P.PN ---
Subjective Progress Note Date: 08/07/22 Principal diagnosis: Positive blood culture and incarcerated incisional hernia Patient is a 47 year old female with a past medical history significant for breast cancer the patient also have a history of midline incision for a gynecological oncological surgery many years ago requiring total abdominal hysterectomy, presented to hospital with abdominal pain CT of abdomi nal pelvis concerning for incarcerated incisional hernia patient is status post open repair of the incarcerated incisional hernia resection of portion of the bowel also have a positive blood culture finalized as possible micrococcus. On today's evaluation that is 08/07/2022, the patient continues to be afebrile, patient did have some discomfort to the right upper abdominal area, patient denies having nausea vomiting tolerating her diet, no diarrhea, no chest pain shortness of breath and no significant cough. Objective - Vital Signs Vital signs: Vital Signs Temp 98.1 F 08/07/22 08:00 Pulse 78 08/07/22 08:00 Resp 16 08/07/22 08:00 BP 111/65 08/07/22 08:00 Pulse Ox 93 L 08/07/22 08:00 FiO2 Intake & Output 08/06/22 08/07/22 08/07/22 18:59 06:59 18:59 Output Total 20 10 Balance -20 -10 Output: Drainage 20 10 Abdomen 20 10 Other: Voiding Method Toilet # Voids 2 5 # Bowel Movements 1 - Exam GENERAL DESCRIPTION: Middle-age female lying in bed in no distress RESPIRATORY SYSTEM: Unlabored breathing , decreased breath sounds at bases HEART: S1 S2 regular rate and rhythm , ABDOMEN: Soft , incision is clean and intact per surgical note EXTREMITIES: No edema feet - Labs CBC & Chem 7: 08/06/22 05:05 08/06/22 05:05 Labs: Microbiology - Last 24 Hours (Table) 07/31/22 05:50 Blood Culture - Final Blood No Growth after 144 hours Assessment and Plan (1) Sepsis Current Visit: Yes Status: Acute Code(s): A41.9 - SEPSIS, UNSPECIFIED ORGANISM SNOMED Code(s): 39839967 (2) Gram-positive bacteremia Current Visit: Yes Status: Acute Code(s): R78.81 - BACTEREMIA SNOMED Code(s): 233040803741 Plan: 1patient is in the hospital with sepsis in this patient who did a fever and elevated white count and abdominal pain secondary to incarcerated incisional hernia in this patient who is status post laparotomy and repair of the hernia and resection of the perforated small bowel along with extensive lysis of adhesion now with a positive blood cultures which has been finalized as possible micrococcus likely skin contamination, repeat blood culture has been negative 2blood cultures has been and are negative so far 3patient had shown clinical improvement and the patient white count is normal, patient continue with the Zosyn and will transition to oral antibiotic on discharge once cleared by surgery Time with Patient: Less than 30
[2022-08-08 04:56] LABS: Basophils # (A) 0.1 k/uL (0-0.2); Basophils % (A) 1 %; Eosinophils # (A) 0.2 k/uL (0-0.7); Eosinophils % (A) 2 %; HCT 35.8 % (34.0-46.0); HGB 10.9 gm/dL (11.4-16.0); Lymphocytes # (A) 2.3 k/uL (1.0-4.8); Lymphocytes % (A) 23 %; MCH 26.8 pg (25.0-35.0); MCHC 30.6 g/dL (31.0-37.0); MCV 87.6 fL (80.0-100.0); Mean Platelet Volume 7.7; Monocytes # (A) 0.5 k/uL (0-1.0); Monocytes % (A) 5 %; Neutrophils # (A) 6.8 k/uL (1.3-7.7); Neutrophils % (A) 68 %; Platelet Count 280 k/uL (150-450); RBC 4.08 m/uL (3.80-5.40); RDW 14.6 % (11.5-15.5); WBC 10.1 k/uL (3.8-10.6)
[2022-08-08] MEDS: IOPAMIDOL CONTRAST (ORAL USE) VIAL PO PRN ×2 (06:16→07:17)
[2022-08-08] MEDS: HYDROmorphone 0.5 MG/0.5 ML SYRINGE IVP PRN ×2 (06:24→10:55)
[2022-08-08 08:41] VITALS: RESP 17
--- NOTE | 2022-08-08 08:49 | CT ---
EXAMINATION TYPE: CT abdomen pelvis w con DATE OF EXAM: 08/08/2022 COMPARISON: 07/28/2022 HISTORY: 47-year-old female Follow up of bowel perforation TECHNIQUE: Contiguous axial scanning of the abdomen and pelvis following administration of 100 ml Iso ganesh 300 IV contrast. Delayed images through the kidneys and coronal/sagittal reconstructions perform ed. CT DLP: 1855.9 mGycm Automated exposure control for dose reduction was used. FINDINGS: Patchy and nodular ground glass infiltrates left greater than right basilar lower lobes. No pleural effusion. Heart normal size without pericardial effusion. Liver enlarged at 20.5 cm. Cholecystectomy clips are present. Unchanged prominence to the bile duct a t 1.1 cm. Portal venous system is patent. Similar mild thickening of the left adrenal gland without discrete nodularity. Right adrenal gland an d pancreas show no gross abnormality. Post laparotomy changes along the anterior midline with repair of previous supraumbilical and infraum bilical hernias. Surgical drain is in place looped along the surface of the superficial abdominal wal l fascia. There is a small fluid collection measuring 4.5 x 2.0 x 1.1 cm in the subcutaneous adipose layer balta g the superior aspect of the incision, at the level of the superior drainage catheter looped, sagitta l image 80 and axial image 42. A second small 2.3 cm fluid locule with tiny focus of air near the umbilical level along the surface of the superficial abdominal wall fascia, axial image 53 and sagittal image 77. There appears to have an resolution of previous small bowel obstruction with interval small bowel millie tristen evident. Some residual mildly distended small bowel loops in the upper abdomen up to 3.6 cm There appears to be focal severe mesenteric edema in the central mid abdomen adjacent to the small torres wel surgery staple line. Axial age 46 and coronal image 35. No free air is seen. There is some modera te mural thickening of adjacent small bowel loops appear, axial image 46 and 47. Normal appendix. Mild stool. Trace pelvic free fluid. No free air is seen. Bladder urine distended. P elvic phleboliths. No abnormal fluid collection in the pelvis or pelvic lymphadenopathy. Bones: Some facet arthropathy mid to lower lumbar spine. IMPRESSION: 1. INTERVAL LAPAROTOMY CHANGE WITH SMALL BOWEL SURGERY AND REPAIR OF THE PREVIOUS VENTRAL ABDOMINAL W ALL HERNIAS. A FEW MILDLY DISTENDED SMALL BOWEL LOOPS REMAIN IN THE UPPER ABDOMEN MEASURING UP TO 3.6 CM, LIKELY MILD POSTOPERATIVE ILEUS BUT THE PATTERN OF SMALL BOWEL OBSTRUCTION HAS RESOLVED. 2. FOCAL SEVERE EDEMA WITHIN THE CENTRAL MID MESENTERY ADJACENT TO THE SMALL BOWEL SURGERY. AN ADDITI ONAL ADJACENT SMALL BOWEL LOOP SHOWS MODERATE WALL THICKENING. THIS MAY REFLECT RESIDUAL MESENTERIC E KEV FROM PREVIOUS SMALL BOWEL OBSTRUCTION. Mesenteric infarct or focal phlegmon are in the different ial. No intra-abdominal abscess is seen. The thickened small bowel loop could reflect some contiguous inflammation/enteritis. Consider short interval follow-up. 3. There are a couple small fluid collections along the anterior midline laparotomy within the subcut aneous fat layer (4.5 x 2.0 cm inferiorly and 2.3 cm at the level of the umbilicus). Probably some re sidual postoperative seromas. Small infective fluid pockets not excluded at this time. The smaller 2 .3 cm fluid pocket contains a focus of air. 4. Patchy and nodular groundglass infiltrates in the basilar lower lobes. Correlate for early infecti ous or aspiration pneumonitis. 5. Trace pelvic free fluid.
[2022-08-08] MEDS: PIPERACILLIN-TAZOBACTAM 3.375 GM in SODIUM CHLORIDE 0.9% 100 ML IVPB SCH ×2 (09:00→09:07)
[2022-08-08] MEDS: HEPARIN SODIUM,PORCINE/PF 5,000 UNIT/0.5 ML SYRINGE SQ SCH (09:07)
[2022-08-08] MEDS: PANTOPRAZOLE 40 MG/10 ML VIAL IV SCH (09:07)
[2022-08-08] MEDS: MAGNESIUM OXIDE 400 MG TAB PO SCH (09:07)
--- NOTE | 2022-08-08 12:22 | P.DS ---
Providers Date of admission: 07/28/22 20:44 Expected date of discharge: 08/08/22 Attending physician: Ariel Loza Consults: 07/29/22 10:13 Consult Physician Routine Consulting Provider: Chad Saavedra Consult Reason/Comments: Medical management Do you want consulting provider notified?: Yes 07/30/22 12:02 Consult Physician Routine Consulting Provider: Edwige Ortiz Consult Reason/Comments: Bacteremia Do you want consulting provider notified?: Yes Primary care physician: France Root - Discharge Diagnosis(es) (1) Small bowel perforation 47-year-old female admitted 11 days ago after presenting to the ER with a strangulated abdominal wall hernia. Patient required urgent repair with small bowel resection. Postoperatively the patient has had a ileus and over the last few days some abdominal discomfort that had recurred. She is doing well today. CAT scan performed this morning shows no abscess collection or free air. No evidence of leak. She does have some inflammatory changes in the mesentery adjacent to the anastomotic site. Patient would like to go home today. She has been ambulating. She is tolerating her diet. No nausea or vomiting. Will plan discharge. Continue antibiotics postdischarge per infectious disease. Patient will follow-up in 1 week. Current Visit: Yes Status: Acute Plan - Discharge Summary Discharge Rx Participant: Yes New Discharge Prescriptions: New HYDROcodone/APAP 5-325MG [[place] 5-325] 1 tab PO Q6HR PRN 3 Days #12 tab PRN Reason: Analgesia No Action Acetaminophen [Tylenol Extra Strength] 500 mg PO Q6H PRN PRN Reason: Pain Discharge Medication List Acetaminophen [Tylenol Extra Strength] 500 mg PO Q6H PRN 07/28/22 [History] HYDROcodone/APAP 5-325MG [[place] 5-325] 1 tab PO Q6HR PRN 3 Days #12 tab 08/03/22 [Rx] Follow up Appointment(s)/Referral(s): Ariel Loza MD [Medical Doctor] - 1 Week France Root MD [Primary Care Provider] - 1-2 days
--- NOTE | 2022-08-08 12:53 | P.PN ---
Subjective Progress Note Date: 08/08/22 Principal diagnosis: Positive blood culture and incarcerated incisional hernia Patient is a 47 year old female with a past medical history significant for breast cancer the patient also have a history of midline incision for a gynecological oncological surgery many years ago requiring total abdominal hysterectomy, presented to hospital with abdominal pain CT of abdomi nal pelvis concerning for incarcerated incisional hernia patient is status post open repair of the incarcerated incisional hernia resection of portion of the bowel also have a positive blood culture finalized as possible micrococcus. On today's evaluation that is 08/08/2022, the patient denies any fever or any chills, patient denies any chest pain shortness of breath or cough currently denies having any abdominal pain no nausea no vomiting no diarrhea feeling better wants to go home Objective - Vital Signs Vital signs: Vital Signs Temp 98.9 F 08/08/22 08:00 Pulse 108 H 08/08/22 09:07 Resp 17 08/08/22 09:07 BP 177/97 08/08/22 08:00 Pulse Ox 95 08/08/22 09:40 FiO2 Intake & Output 08/07/22 08/08/22 08/08/22 18:59 06:59 18:59 Output Total 10 10 Balance -10 -10 Weight 95.254 kg Output: Drainage 10 10 Abdomen 10 10 Other: Voiding Method Toilet Toilet # Voids 3 - Exam GENERAL DESCRIPTION: Middle-age female lying in bed in no distress RESPIRATORY SYSTEM: Unlabored breathing , decreased breath sounds at bases HEART: S1 S2 regular rate and rhythm , ABDOMEN: Soft , no tenderness EXTREMITIES: No edema feet - Labs CBC & Chem 7: 08/08/22 03:43 08/06/22 05:05 Labs: Abnormal Lab Results - Last 24 Hours (Table) 08/08/22 Range/Units 03:43 Hgb 10.9 L (11.4-16.0) gm/dL MCHC 30.6 L (31.0-37.0) g/dL Assessment and Plan (1) Sepsis Current Visit: Yes Status: Acute Code(s): A41.9 - SEPSIS, UNSPECIFIED ORGANISM SNOMED Code(s): 48035416 (2) Gram-positive bacteremia Current Visit: Yes Status: Acute Code(s): R78.81 - BACTEREMIA SNOMED Code(s): 515099750955 Plan: 1patient is in the hospital with sepsis in this patient who did a fever and elevated white count and abdominal pain secondary to incarcerated incisional hernia in this patient who is status post laparotomy and repair of the hernia and resection of the perforated small bowel along with extensive lysis of adhesion now with a positive blood cultures which has been finalized as possible micrococcus likely skin contamination, repeat blood culture has been negative 2blood cultures has been and are negative so far 3patient had shown clinical improvement and the patient white count is normal, patient did have CT of abdominal pelvis with evidence of some mesenteric edema and seroma no mention of any leak or abscess patient has been discharged by general surgery we will consider short course of oral Augmentin and close outpatient follow-up and prescription was sent to the pharmacy Time with Patient: Less than 30
--- NOTE | 2022-08-08 14:11 | P.PN ---
Subjective Progress Note Date: 08/08/22 Patient is a 47-year-old female with a past medical history of breast cancer, abdominal surgery due to gynecological oncology with large mass, anxiety presents ER with complaints of abdominal pain mainly in the mid abdomen. Patient does have history of incisional hernia. Patient developed sudden onset of mid abdominal pain that radiates to the upper and lower abdomen. With cramping and nausea vomiting episodes. CT of the abdomen pelvis done in the ER showed periumbilical hernia containing incarcerated loop of small bowel with mechanical small bowel obstruction. KUB x-ray showed NG tube in the stomach. EKG showed sinus rhythm. Patient was taken to the OR and is status post incarcerated hernia repair with small bowel resection due to perforation and lysis of additions. Postoperatively blood pressure is down to 96/52. Currently denies any complaints of dizziness or lightheadedness. No chest pain or shortness of breath. Nausea improved. Patient has been afebrile. Laboratory pressure WBC 16.4 hemoglobin 13.9 and platelets 294 sodium 140 potassium 3.8 chloride 108 bicarb is 24 BUN 13 and creatinine 0.53 and liver enzymes are not elevated. Lipase level is 110. 07/30/2022 Patient is postoperative day #1 incarcerated periumbilical hernia repair from SBO with lysis of adhesions. Continues with NG tube to suction. 600 mls of output overnight and currently 300 mls so far today. Continues to be NPO, reports not passing gas yet, bowel sounds are hypoactive today. Blood culture positive x 3 for gram positive cocci and repeat cultures taken today. ID has been consulted. Continues on IV metronidazole, IV zosyn. IV vancomycin has been added. White count trending down 18.36 today. On 3L nasal cannula, low grade fever today, blood pressure in the high 90s to 100s systolic. 07/31/2022 Patient is postoperative day #2 hernia repair with lysis of adhesions and resection of perforated small bowel. She continues with NG tube and has had about 2L of gastric output overnight. She has increased her oral intake with ice chips. Plan today is for NG tube to be clamped for patient to ambulate. She is not passing gas yet. Blood culture showing micrococcus species. ID is following. White count is down to 14.18, hgb 9.9. Remains, afebrile, on room air. Encouraged to use incentive spirometer. 08/01/2022 Patient is evaluated today postoperative day #3 hernia repair with lysis of adhesions and resection of perforated small bowel. She was able to ambulate yesterday and reports BM x 2 today and is now passing gas. She reports letting ice chips melt down and drinking water. Gastric output 900 mls in the last 24 hours. Has indwelling catheter and urine output 500 mls noted in the last 24 rowan rs. Sodium up to 147 today and potassium 3.3. White count has improved to 10.95, hemoglobin 10.1. Afebrile. Blood pressure elevated in the 160s/90s. Patient reports feeling stressed out. 08/02/2022 Patient is postoperative day #4 abdominal surgery for hernia repair lysis of adhesions and resection of small bowel. NG tube has been discontinued and plan for clear liquid diet today. She has had 3 BMs today. Does report some abdominal pain under right breast/rib cage area which she states she has had from prior surgeries. She has been ambulating. Continues on T5hvcap and sodium has improved to 140 today. Potassium 3.4, receiving oral supplementation. Patient did spike a fever of 100 last night. Pulse oxygen had dropped a bit and chest xray was taken which shows some consolidation left lower lobe possibly pneumonia. Repeat blood culture has been negative at 72 and 48 hours. Patient is continued on IV zosyn as per ID. 08/03/2022 Patient is postoperative day #5. NG tube was discontinued yesterday and diet was advanced. She had full liquid for dinner and had multiple episodes of emesis o vernight. Today she has decreased appetite, she is trying clear liquid diet. Repeat blood culture remains negative. White count normalized today to 8.5, sodium 144, potassium 3.3. She had fever overnight of 100 patient is educated on importance of sitting up in chair for meals, ambulating and using incentive spirometer 10 x an hour. She is pulling about [id number]. Urinalysis was done which is negative. 08/04/2022 Postoperative day #6 abdominal surgery. Continues on clear liquids and has tolerated overnight. Repeat blood culture remains negative and will require oral antibiotics on discharge. IDC was removed 2 days ago and she is having some urinary retention 300 mls after voiding and post void residuals will be monitored at this time. Continues on IV fluids. Labs today showing sodium of 143, potassium 3.9, BUN 4.0, creatinine 0.6, glucose of 100. Remains afebrile in the last 48 hours and remains on room air. Ambulation and incentive spirometry encouraged. 08/05/2022 Patient is evaluated today he is postoperative day #7 hernia repair lysis of adhesions and resection of small bowel. Continues off NG tube and tolerating liquid diet. She is reporting some epigastric burning and discomfort today and maalox will be added. She is maintained currently on IV protonix. Repeat blood cultures are negative and IV zosyn has been discontinued at this time having completed a 7 day course of antibiotic therapy. ID is recommending oral augmentin on discharge. Dressing intact to abdominal incision and NUBIA drain in place with serosanguineous drainage with 15 ml of output in the last 24 hours. She has a temp of 99 today, heart rate 77, blood pressure 130/84 and 96% room air. She is using incentive spirometer. 08/06/2022 Patient is postoperative day #8 hernia repair lysis of adhesions and resection of small bowel. She continues on liquid diet. and is hoping to be advanced to regular/soft diet for different food options. She is having bowel movements. She is denying shortness of breath, reports heartburn has improved and she did pass alot of gas overnight. Remains on IV zosyn with plan for oral antibiotics on discharge. ID is following. Labs today showing sodium of 143, potassium 4.6, BUN 5.2, creatinine 0.6. 08/07/2022 Patient is postoperative day #9. She has been advanced to low fiber diet today and has been tolerating. She has been increasing activity and has been ambula ting. Denies any nausea. IV fluids have been discontinued. Her main complaint is some abdominal pain along the upper right abdomen she is unsure whether from prior surgery. But she did require a dose of IV dilaudid today. Surgery has ordered abdominal/pelvis CT for further evaluation to be completed in the morning. Remains afebrile, heart rate 78, blood pressure 111/65, 93% on room air. 08/08/2022 Patient is postoperative day #10 hernia repair and lysis of adhesions and resection of small bowel. She has been advanced to low fiber diet by primary and states she is tolerating. No reports of nausea, vomiting or diarrhea and she has a bowel movement today. Her white count has normalized. She is afebrile, heart rate of 74, blood pressure 104/66, 93% on room air. She is encouraged to continue using incentive spirometer and increase activity. Medically she is stable for discharge. Review of Systems Constitutional: Reports fatigue, no fever, Cardio vascular: denied any chest pain, palpitations Gastrointestinal: No nausea, vomiting or diarrhea. Passing gas, having BMs. Has some right upper quad abdominal pain. Pulmonary: Denied any shortness of breath cough Neurologic denied any new focal deficits All inpatient medications were reviewed and appropriate changes in these medications as dictated in the interval history and assessment and plan. PHYSICAL EXAMINATION: GENERAL: The patient is alert and oriented x3, not in any acute distress. Well developed, well nourished. HEENT: Pupils are round and equally reacting to light. EOMI. No scleral icterus. No conjunctival pallor. Normocephalic, atraumatic. No pharyngeal erythema. No thyromegaly. CARDIOVASCULAR: S1 and S2 present. No murmurs, rubs, or gallops. PULMONARY: Chest is clear to auscultation, no wheezing or crackles. Diminished ABDOMEN: Soft, tender, nondistended, Normoactive bowel sounds. No palpable organomegaly. Post surgical abdomen. NUBIA drain in place LLQ with serosanguineous drainage. MUSCULOSKELETAL: No joint swelling or deformity. EXTREMITIES: No cyanosis, clubbing, or pedal edema. NEUROLOGICAL: Gross neurological examination did not reveal any focal deficits. Generalized weakness. SKIN: No rashes. Assessment and Plan Assessment Incarcerated periumbilical hernia with small bowel mechanical obstruction. Status post hernia repair and bowel resection and lysis of additions. Postoperative day 10 Gram positive bacteremia possibly contamination showing micrococcus species with repeat negative so far vs. intra-abdominal source. ID following. Left lower lobe consolidation possibly pneumonia, hospital acquired. although patients white count has been improving on room air and has been maintained on IV zosyn this discharge and being dc'd on oral augmentin. White count has normalized and continues to be afebrile. Leukocytosis resolved Hypernatremia resolved History of breast cancer History of gynecological surgery with resection of mass. Anxiety Obesity GI and DVT prophylaxis Full Code Plan: Continue with pain management Bowel regimen and incentive spirometry was encouraged. Continue with antibiotics and oral augmention on dc recommend by ID Diet has been advanced. Medically she is stable for discharge. Thank you for this consultation. The impression and plan of care has been dictated by Taylor Zazueta Nurse Practitioner as directed. Dr. Noel MD I have performed a history and physical examination and medical decision making of this patient, discussed the same with the dictator, and agree with the dictators assessment and plan as written, documented as a scribe. Based on total visit time, I have performed more than 50% of this visit. Objective - Vital Signs Vital signs: Vital Signs Temp 98.9 F 08/08/22 08:00 Pulse 108 H 08/08/22 09:07 Resp 17 08/08/22 09:07 BP 177/97 08/08/22 08:00 Pulse Ox 95 08/08/22 09:40 FiO2 Intake & Output 08/07/22 08/08/22 08/08/22 18:59 06:59 18:59 Output Total 10 10 Balance -10 -10 Weight 95.254 kg Output: Drainage 10 10 Abdomen 10 10 Other: Voiding Method Toilet Toilet # Voids 3 - Labs CBC & Chem 7: 08/08/22 03:43 08/06/22 05:05 Labs: Abnormal Lab Results - Last 24 Hours (Table) 08/08/22 Range/Units 03:43 Hgb 10.9 L (11.4-16.0) gm/dL MCHC 30.6 L (31.0-37.0) g/dL Assessment and Plan Time with Patient: Less than 30
[2022-08-08] MEDS: HYDROcodone/APAP 5-325MG 1 EACH TAB PO PRN (14:18)
[2022-08-08 14:49] VITALS: BP 117/71; PULSE 79; TEMP 98.3
== END 2022-08-08 16:02 | disposition home health service (06) | DRG 853 ==
LOC: EC 18:27 → 4SSUR 20:44
PROVIDERS: ADMIT Surgery; ATTEND Surgery
PROC: 0D9670Z Drainage of Stomach with Drainage Device, Via Natural or Artificial Opening (ICD-10-PCS; 2022-07-28)
PROC: 0DN80ZZ Release Small Intestine, Open Approach (ICD-10-PCS; 2022-07-29)
PROC: 0DQV0ZZ Repair Mesentery, Open Approach (ICD-10-PCS; 2022-07-29)
PROC: 0DT80ZZ Resection of Small Intestine, Open Approach (ICD-10-PCS; principal; 2022-07-29 08:00)
DX: A41.89 Other specified sepsis (principal); J18.9 Pneumonia, unspecified organism; K65.1 Peritoneal abscess; K55.9 Vascular disorder of intestine, unspecified; K56.50 Intestinal adhesions [bands], unspecified as to partial versus complete obstruction; E87.20 Acidosis, unspecified; E87.0 Hyperosmolality and hypernatremia; K42.0 Umbilical hernia with obstruction, without gangrene; K57.00 Diverticulitis of small intestine with perforation and abscess without bleeding; K56.7 Ileus, unspecified; E87.8 Other disorders of electrolyte and fluid balance, not elsewhere classified; E66.01 Morbid (severe) obesity due to excess calories; Z68.38 Body mass index [BMI] 38.0-38.9, adult; R33.9 Retention of urine, unspecified; R12 Heartburn; Y95 Nosocomial condition; F41.9 Anxiety disorder, unspecified; B96.89 Other specified bacterial agents as the cause of diseases classified elsewhere; E83.42 Hypomagnesemia; E87.6 Hypokalemia; Z88.8 Allergy status to other drugs, medicaments and biological substances; Z28.310 Unvaccinated for COVID-19; Z85.3 Personal history of malignant neoplasm of breast
CPT/HCPCS: 36415; 71046; 74018; 74177; 80048; 80053; 81003; 82150; 82565; 83605; 83690; 83735; 85025; 85610; 85730; 86140; 87040; 88307; 93005; 94760; 96361; 96374; 96375; 96376; 99285

== ENCOUNTER 2023-05-01 11:18 | Emergency (ER) | payer OTHER ==
[2023-05-01 11:53] VITALS: BP 109/72; PULSE 83; RESP 16; TEMP 97.7
--- NOTE | 2023-05-01 12:05 | ED ---
ENT HPI - General Chief complaint: ENT Stated complaint: facial swelling Source: patient Mode of arrival: ambulatory Limitations: no limitations - History of Present Illness Initial comments: The patient's a 48-year-old female with history of hypertension but is otherwise healthy presents emergency room with complaints of swelling to left side of face. Patient woke up with the swelling. She denies any falls or injuries. She's had ongoing congestion for about 3 weeks and Covid symptoms however did not have the facial swelling with this. She denies any nausea vomiting or fever. I think difficulty breathing or swallowing. Patient has a history of poor dental issues due to chemo and radiation treatment. She has had dental abscesses in the past. She states usually she has pain associated with the abscesses. She denies any dental pain this time. She denies any recent cracked tooth or trauma to the teeth. - Related Data Home Medications Medication Instructions Recorded Confirmed Acetaminophen [Tylenol Extra 500 mg PO Q6H PRN 07/28/22 07/28/22 Strength] Previous Rx's Medication Instructions Recorded HYDROcodone/APAP 5-325MG [[place] 1 tab PO Q6HR PRN 3 Days #12 tab 08/03/22 5-325] Amoxic-Pot Clav 875-125Mg 1 tab PO Q12HR 10 Days #20 tab 08/08/22 [Augmentin 875-125] Famotidine [Pepcid] 20 mg PO DAILY #30 tablet 08/08/22 Magnesium Oxide [Mag-Ox] 400 mg PO DAILY tab 08/08/22 clindamycin HCL 300 mg PO Q6HR 10 Days #40 cap 05/01/23 Allergies Allergy/AdvReac Type Severity Reaction Status Date / Time lidocaine Allergy Anaphylaxis Verified 05/01/23 11:34 Review of Systems ROS Statement: Those systems with pertinent positive or pertinent negative responses have been documented in the HPI. ROS Other: All systems not noted in ROS Statement are negative. Past Medical History Past Medical History: No Reported History Additional Past Medical History / Comment(s): Breast cancer History of Any Multi-Drug Resistant Organisms: None Reported Past Surgical History: Cholecystectomy, Hernia Repair, Orthopedic Surgery, Tubal Ligation Past Psychological History: Anxiety Smoking Status: Never smoker Past Alcohol Use History: None Reported Past Drug Use History: None Reported General Exam Limitations: no limitations General appearance: alert, in no apparent distress Head exam: Present: atraumatic Eye exam: Present: normal appearance, PERRL ENT exam: Present: normal exam, mucous membranes dry, mucous membranes moist (no sublingual swelling. airway intact.), other (mild swelling left cheek and apical region. mild fluctuance over left periapical gum with mild pain with palpation. no severe decay. no dental trauma.) Neck exam: Present: normal inspection Respiratory exam: Present: normal lung sounds bilaterally Cardiovascular Exam: Present: regular rate, normal rhythm Neurological exam: Present: alert, oriented X3 Psychiatric exam: Present: normal affect, normal mood Skin exam: Present: warm, dry Course Vital Signs 05/01/23 11:34 Temperature 97.7 F Pulse Rate 83 Respiratory 16 Rate Blood Pressure 109/72 O2 Sat by Pulse 97 Oximetry - Reevaluation(s) Reevaluation #1: 05/01/23 11:58 discussed management with the patient. Medical Decision Making - Medical Decision Making Was pt. sent in by a medical professional or institution (, PA, [employer], urgent care, hospital, or [facility]...) When possible be specific @ -[No] Did you speak to anyone other than the patient for history (EMS, parent, family, police, friend...)? What history was obtained from this source @ -[No] Did you review nursing and triage notes (agree or disagree)? Why? @ -[I reviewed and agree with nursing and triage notes] Were old charts reviewed (outside hosp., previous admission, EMS record, old EKG, old radiological studies, urgent care reports/EKG's, [facility] records)? Report findings @ -[No old charts were reviewed] Differential Diagnosis (chest pain, altered mental status, abdominal pain women, abdominal pain men, vaginal bleeding, weakness, fever, dyspnea, syncope, headache, dizziness, GI bleed, back pain, seizure, CVA, palpatations, mental health, musculoskeletal)? @ -Sinusitis, dental abscess EKG interpreted by me (3pts min.). @ -[As above] X-rays interpreted by me (1pt min.). @ -[None done] CT interpreted by me (1pt min.). @ -[None done] U/S interpreted by me (1pt. min.). @ -[None done] What testing was considered but not performed or refused? (CT, X-rays, U/S, labs)? Why? @ -[None] What meds were considered but not given or refused? Why? @ -[None] Did you discuss the management of the patient with other professionals (professionals i.e. , PA, [employer], lab, RT, psych nurse, social media marketing analyst, lawyers, teacher, air defense control officer, counter caser)? Give summary @ -I discussed patient's symptoms are management with attending ED physician Dr. Schaeffer today. Was smoking cessation discussed for >3mins.? @ -[No] Was critical care preformed (if so, how long)? @ -[No] Were there social determinants of health that impacted care today? How? (Homelessness, low income, unemployed, alcoholism, drug addiction, transportation, low edu. Level, literacy, decrease access to med. care, shelter, rehab)? @ -[No] Was there de-escalation of care discussed even if they declined (Discuss DNR or withdrawal of care, Hospice)? DNR status @ -[No] What co-morbidities impacted this encounter? (DM, HTN, Smoking, COPD, CAD, Cancer, CVA, ARF, Chemo, Hep., AIDS, mental health diagnosis, sleep apnea, morbid obesity)? @ -Previous dental abscesses Was patient admitted / discharged? Hospital course, mention meds given and route, prescriptions, significant lab abnormalities, going to OR and other pertinent info. @ -This is mild swelling consistent with a early dental abscess. Patient is stable she is able to tolerate her secretions and has no respiratory distress. Airway is intact. This is an early abscess that can be treated with outpatient antibiotics. There is no indication for hospitalization is prudent at this time. Undiagnosed new problem with uncertain prognosis? @ -[No] Drug Therapy requiring intensive monitoring for toxicity (Heparin, Nitro, Insulin, Cardizem)? @ -[No] Were any procedures done? @ -[No] Diagnosis/symptom? @ -Left upper dental abscess,. PeriApical swelling Acute, or Chronic, or Acute on Chronic? @ -Acute Uncomplicated (without systemic symptoms) or Complicated (systemic symptoms)? @ -[default] Side effects of treatment? @ -[No] Exacerbation, Progression, or Severe Exacerbation? @ -[No] Poses a threat to life or bodily function? How? (Chest pain, [place], [place], pneumonia, PE, COPD, DKA, ARF, appy, cholecystitis, CVA, Diverticulitis, Homicidal, Suicidal, threat to staff... and all critical care pts) @ -[No] Disposition Clinical Impression: Dental abscess, Periapical abscess Disposition: HOME SELF-CARE Condition: Good Instructions (If sedation given, give patient instructions): Dental Abscess (ED), Clindamycin (By mouth) Is patient prescribed a controlled substance at d/c from ED?: No If prescribed controlled substance>3 days was MAPS reviewed?: No Referrals: France Root MD [Primary Care Provider] - 1-2 days Time of Disposition: 12:08
== END 2023-05-01 12:20 | disposition home or self-care (01) ==
LOC: EC 11:18
DX: K04.7 Periapical abscess without sinus (principal); Z86.59 Personal history of other mental and behavioral disorders
CPT/HCPCS: 99283

== ENCOUNTER 2023-08-25 17:54 | Emergency (ER) | payer OTHER ==
[2023-08-25] MEDS: SODIUM CHLORIDE 0.9% 1,000 ML IV STA (19:08)
[2023-08-25] MEDS: ONDANSETRON 4 MG/2 ML VIAL IVP STA (19:09)
[2023-08-25 19:21] LABS: Basophils # (A) 0.1 k/uL (0-0.2); Basophils % (A) 1 %; Eosinophils # (A) 0.3 k/uL (0-0.7); Eosinophils % (A) 3 %; HCT 45.3 % (34.0-46.0); HGB 14.6 gm/dL (11.4-16.0); Lymphocytes # (A) 1.9 k/uL (1.0-4.8); Lymphocytes % (A) 18 %; MCHC 32.2 g/dL (31.0-37.0); MCV 87.1 fL (80.0-100.0); Mean Platelet Volume 7.4; Monocytes # (A) 0.5 k/uL (0-1.0); Monocytes % (A) 5 %; Neutrophils # (A) 7.6 k/uL (1.3-7.7); Neutrophils % (A) 74 %; Platelet Count 376 k/uL (150-450); RDW 15.1 % (11.5-15.5); WBC 10.4 k/uL (3.8-10.6)
[2023-08-25 19:27] LABS: Appearance,Urine Cloudy (Clear); Bacteria,Urine Many /hpf; Bilirubin,Urine Negative (Negative); Blood,Urine Negative (Negative); Calcium Oxalate Crystals,Urine Few /hpf; Color,Urine Yellow; Glucose,Urine (UA) Negative (Negative); Ketones,Urine Negative (Negative); Leukocyte Esterase,Urine Negative (Negative); Mucus,Urine Many /hpf; Nitrite,Urine Negative (Negative); PH, Urine 5.5 (5.0-8.0); Protein,Urine Trace (Negative); RBC,Urine 1 /hpf (0-5); Specific Gravity,Urine 1.037 (1.001-1.035); Squamous Epithelial Cell,Urine 3 /hpf (0-4); Urobilinogen,Urine <2.0 mg/dL (<2.0); WBC,Urine 4 /hpf (0-5)
[2023-08-25 19:34] LABS: ALT 16 U/L (4-34); AST 24 U/L (14-36); African American GFR (CKD) >90 (>60 ml/min/1.73 sqM); Albumin 4.8 g/dL (3.5-5.0); Alkaline Phosphatase 102 U/L (38-126); Amylase 64 U/L (30-110); Anion Gap 7 mmol/L; Blood Urea Nitrogen 18 mg/dL (7-17); Calcium 10.4 mg/dL (8.4-10.2); Carbon Dioxide 28 mmol/L (22-30); Chloride 105 mmol/L (98-107); Glucose 94 mg/dL (74-99); Lipase 49 U/L (23-300); Non-African American GFR(CKD) >90 (>60 ml/min/1.73 sqM); Potassium 4.7 mmol/L (3.5-5.1); Sodium 140 mmol/L (137-145); Total Bilirubin 0.9 mg/dL (0.2-1.3); Total Protein 8.1 g/dL (6.3-8.2)
[2023-08-25 19:41] LABS: INR 0.9 (<1.2); Partial Thromboplastin Time 25.2 sec (22.0-30.0); Prothrombin Time 9.9 sec (10.0-12.5)
--- NOTE | 2023-08-25 20:10 | ED ---
General Adult HPI - General Chief complaint: Nausea/Vomiting/Diarrhea Stated complaint: chills N/D headache Time Seen by Provider: 08/25/23 18:06 Source: patient, RN notes reviewed, old records reviewed Mode of arrival: ambulatory Limitations: no limitations - History of Present Illness Initial comments: Patient is a 48-year-old female presents emergency department complaining of nausea, diarrhea, fatigue as well as a chills. Has been ongoing for the last few days. Is also having diarrhea. Denies any blood in her diarrhea. Does have positive sick contact at home. Denies any other symptoms. Does have a history of extensive abdominal surgeries but denies any obvious abdominal pain, just the normal cramping abdominal pain occurs with diarrhea. Presents for further evaluation at this time. Denies any cough, shortness of breath, chest pain. - Related Data Home Medications Medication Instructions Recorded Confirmed Acetaminophen [Tylenol Extra 500 mg PO Q6H PRN 07/28/22 07/28/22 Strength] Previous Rx's Medication Instructions Recorded HYDROcodone/APAP 5-325MG [[place] 1 tab PO Q6HR PRN 3 Days #12 tab 08/03/22 5-325] Amoxic-Pot Clav 875-125Mg 1 tab PO Q12HR 10 Days #20 tab 08/08/22 [Augmentin 875-125] Famotidine [Pepcid] 20 mg PO DAILY #30 tablet 08/08/22 Magnesium Oxide [Mag-Ox] 400 mg PO DAILY tab 08/08/22 clindamycin HCL 300 mg PO Q6HR 10 Days #40 cap 05/01/23 Allergies Allergy/AdvReac Type Severity Reaction Status Date / Time lidocaine Allergy Anaphylaxis Verified 05/01/23 11:34 Review of Systems ROS Statement: Those systems with pertinent positive or pertinent negative responses have been documented in the HPI. Review of Systems: CONST: Denies fever EYES: Denies blurry vision ENT: Denies nasal congestion C/V: Denies Chest pain RESP: Denies shortness of breath GI: Denies abdominal pain : Denies dysuria SKIN: Denies rash. MSK: Denies joint pain. NEURO: Denies headache ROS Other: All systems not noted in ROS Statement are negative. Past Medical History Past Medical History: No Reported History Additional Past Medical History / Comment(s): Breast cancer History of Any Multi-Drug Resistant Organisms: None Reported Past Surgical History: Cholecystectomy, Hernia Repair, Orthopedic Surgery, Tubal Ligation Past Psychological History: Anxiety Smoking Status: Never smoker Past Alcohol Use History: None Reported Past Drug Use History: None Reported General Exam - General Exam Comments Initial Comments: General: Appears in no acute distress. HEAD: Normal with no signs of head trauma. EYES: PERRLA, EOMI, conjunctiva normal, no discharge. ENT: Hearing grossly intact, normal oropharynx. Moist mucous membranes. RESPIRATORY: Clear breath sounds bilaterally. No wheezes, rales, or rhonchi. C/V: Regular rate and rhythm. S1 and S2 auscultated, no edema, peripheral pulses 2+ and intact throughout ABD: Abd is soft, nontender, nondistended EXT: Normal range of motion, no obvious deformity SKIN: No rashes or lesions observed on exposed skin. NEURO: Alert and oriented x 4. Limitations: no limitations Course Vital Signs 08/25/23 18:01 Temperature 98.1 F Pulse Rate 97 Respiratory 18 Rate Blood Pressure 144/104 O2 Sat by Pulse 98 Oximetry Medical Decision Making - Medical Decision Making Was pt. sent in by a medical professional or institution (, PA, [employer], urgent care, hospital, or assisted...) When possible be specific @ -No Did you speak to anyone other than the patient for history (EMS, parent, family, police, friend...)? What history was obtained from this source @ -No Did you review nursing and triage notes (agree or disagree)? Why? @ -I reviewed and agree with nursing and triage notes Were old charts reviewed (outside hosp., previous admission, EMS record, old EKG, old radiological studies, urgent care reports/EKG's, assisted records)? Report findings @ -Old charts reviewed Differential Diagnosis (chest pain, altered mental status, abdominal pain women, abdominal pain men, vaginal bleeding, weakness, fever, dyspnea, syncope, headache, dizziness, GI bleed, back pain, seizure, CVA, palpatations, mental health, musculoskeletal)? @ -Dehydration, diarrhea, viral syndrome, COVID infection, influenza infection, electrolyte abnormality. This list is not all inclusive. EKG interpreted by me (3pts min.). @ -None done X-rays interpreted by me (1pt min.). @ -None done CT interpreted by me (1pt min.). @ -None done U/S interpreted by me (1pt. min.). @ -None done What testing was considered but not performed or refused? (CT, X-rays, U/S, john pulido)? Why? @ -Considered CT imaging however patient has no abdominal pain. Only complaint is diarrhea at this time. What meds were considered but not given or refused? Why? @ -None Did you discuss the management of the patient with other professionals (professionals i.e. , PA, [employer], lab, RT, psych nurse, social science research assistant, lining printer, teacher, supervisory cbp officer, log manager)? Give summary @ -No Was smoking cessation discussed for >3mins.? @ -No Was critical care preformed (if so, how long)? @ -No Were there social determinants of health that impacted care today? How? (Homelessness, low income, unemployed, alcoholism, drug addiction, transportation, low edu. Level, literacy, decrease access to med. care, assisted, rehab)? @ -No Was there de-escalation of care discussed even if they declined (Discuss DNR or withdrawal of care, Hospice)? DNR status @ -No What co-morbidities impacted this encounter? (DM, HTN, Smoking, COPD, CAD, Cancer, CVA, ARF, Chemo, Hep., AIDS, mental health diagnosis, sleep apnea, morbid obesity)? @ -None Was patient admitted / discharged? Hospital course, mention meds given and route, prescriptions, significant lab abnormalities, going to OR and other pertinent info. @ -Based on the patient's presentation and physical exam, presents complaining of diarrhea, with a positive sick contact at home. No other acute complaints at this time. Has an extensive abdominal surgical history however has no pain. I did discuss obtaining CT imaging however we both agree that it is unnecessary at this time and we will obtain laboratory studies first. CT imaging only if sean med necessary by labs. She has no pain. Exam unremarkable. She was in agreement this plan. Vital signs are within acceptable limits. She will be given IV fluids as well as IV Zofran for nausea. Laboratory studies are within acceptable limits. I updated the patient. She expressed understanding. I believe it is safer to be discharged home at this time. I will provide her with ODT Zofran tablets. We discussed proper hydration as well as strict return precautions. Patient was in agreement this plan. I will provide the patient with a prescription for ODT Zofran. I instructed the patient to follow up with their PCP in the next 1-3 days. I explained that the patient should return to the emergency department if they experience any worsening symptoms. Strict return precautions were discussed with the patient. The patient expressed understanding of these instructions. I answered all questions that the patient had. The patient was discharged home in good condition with their prescriptions and follow up information. Undiagnosed new problem with uncertain prognosis? @ -No Drug Therapy requiring intensive monitoring for toxicity (Heparin, Nitro, Insulin, Cardizem)? @ -No Were any procedures done? @ -No Diagnosis/symptom? @ -Diarrhea, viral syndrome Acute, or Chronic, or Acute on Chronic? @ -Acute Uncomplicated (without systemic symptoms) or Complicated (systemic symptoms)? @ -Complicated Side effects of treatment? @ -No Exacerbation, Progression, or Severe Exacerbation? @ -No Poses a threat to life or bodily function? How? (Chest pain, [place], [place], pneumonia, PE, COPD, DKA, ARF, appy, cholecystitis, CVA, Diverticulitis, Homicidal, Suicidal, threat to staff... and all critical care pts) @ -Unlikely - Lab Data Result diagrams: 08/25/23 19:02 08/25/23 19:02 Lab Results 08/25/23 08/25/23 08/25/23 Range/Units 19:02 19:02 19:02 WBC 10.4 (3.8-10.6) k/uL RBC 5.20 (3.80-5.40) m/uL Hgb 14.6 (11.4-16.0) gm/dL Hct 45.3 (34.0-46.0) % MCV 87.1 (80.0-100.0) fL MCH 28.0 (25.0-35.0) pg MCHC 32.2 (31.0-37.0) g/dL RDW 15.1 (11.5-15.5) % Plt Count 376 (150-450) k/uL MPV 7.4 Neutrophils % 74 % Lymphocytes % 18 % Monocytes % 5 % Eosinophils % 3 % Basophils % 1 % Neutrophils # 7.6 (1.3-7.7) k/uL Lymphocytes # 1.9 (1.0-4.8) k/uL Monocytes # 0.5 (0-1.0) k/uL Eosinophils # 0.3 (0-0.7) k/uL Basophils # 0.1 (0-0.2) k/uL PT 9.9 L (10.0-12.5) sec INR 0.9 (<1.2) APTT 25.2 (22.0-30.0) sec Sodium 140 (137-145) mmol/L Potassium 4.7 (3.5-5.1) mmol/L Chloride 105 (98-107) mmol/L Carbon Dioxide 28 (22-30) mmol/L Anion Gap 7 mmol/L BUN 18 H (7-17) mg/dL Creatinine 0.65 (0.52-1.04) mg/dL Est GFR (CKD-EPI)AfAm >90 (>60 ml/min/1.73 sqM) Est GFR (CKD-EPI)NonAf >90 (>60 ml/min/1.73 sqM) Glucose 94 (74-99) mg/dL Plasma Lactic Acid Tommy (0.7-2.0) mmol/L Calcium 10.4 H (8.4-10.2) mg/dL Total Bilirubin 0.9 (0.2-1.3) mg/dL AST 24 (14-36) U/L ALT 16 (4-34) U/L Alkaline Phosphatase 102 (38-126) U/L Total Protein 8.1 (6.3-8.2) g/dL Albumin 4.8 (3.5-5.0) g/dL Amylase 64 (30-110) U/L Lipase 49 (23-300) U/L Urine Color Urine Appearance (Clear) Urine pH (5.0-8.0) Ur Specific [place] (1.001-1.035) Urine Protein (Negative) Urine Glucose (UA) (Negative) Urine Ketones (Negative) Urine Blood (Negative) Urine Nitrite (Negative) Urine Bilirubin (Negative) Urine Urobilinogen (<2.0) mg/dL Ur Leukocyte Esterase (Negative) Urine RBC (0-5) /hpf Urine WBC (0-5) /hpf Ur Squamous Epith Cells (0-4) /hpf Calcium Oxalate Crystal (None) /hpf Urine Bacteria (None) /hpf Urine Mucus (None) /hpf Influenza Type A (PCR) (Not Detectd) Influenza Type B (PCR) (Not Detectd) RSV (PCR) (Not Detectd) SARS-CoV-2 (PCR) (Not Detectd) 08/25/23 08/25/23 08/25/23 Range/Units 19:02 19:02 19:02 WBC (3.8-10.6) k/uL RBC (3.80-5.40) m/uL Hgb (11.4-16.0) gm/dL Hct (34.0-46.0) % MCV (80.0-100.0) fL MCH (25.0-35.0) pg MCHC (31.0-37.0) g/dL RDW (11.5-15.5) % Plt Count (150-450) k/uL MPV Neutrophils % % Lymphocytes % % Monocytes % % Eosinophils % % Basophils % % Neutrophils # (1.3-7.7) k/uL Lymphocytes # (1.0-4.8) k/uL Monocytes # (0-1.0) k/uL Eosinophils # (0-0.7) k/uL Basophils # (0-0.2) k/uL PT (10.0-12.5) sec INR (<1.2) APTT (22.0-30.0) sec Sodium (137-145) mmol/L Potassium (3.5-5.1) mmol/L Chloride (98-107) mmol/L Carbon Dioxide (22-30) mmol/L Anion Gap mmol/L BUN (7-17) mg/dL Creatinine (0.52-1.04) mg/dL Est GFR (CKD-EPI)AfAm (>60 ml/min/1.73 sqM) Est GFR (CKD-EPI)NonAf (>60 ml/min/1.73 sqM) Glucose (74-99) mg/dL Plasma Lactic Acid Tommy 0.9 (0.7-2.0) mmol/L Calcium (8.4-10.2) mg/dL Total Bilirubin (0.2-1.3) mg/dL AST (14-36) U/L ALT (4-34) U/L Alkaline Phosphatase (38-126) U/L Total Protein (6.3-8.2) g/dL Albumin (3.5-5.0) g/dL Amylase (30-110) U/L Lipase (23-300) U/L Urine Color Yellow Urine Appearance Cloudy H (Clear) Urine pH 5.5 (5.0-8.0) Ur Specific [place] 1.037 H (1.001-1.035) Urine Protein Trace H (Negative) Urine Glucose (UA) Negative (Negative) Urine Ketones Negative (Negative) Urine Blood Negative (Negative) Urine Nitrite Negative (Negative) Urine Bilirubin Negative (Negative) Urine Urobilinogen <2.0 (<2.0) mg/dL Ur Leukocyte Esterase Negative (Negative) Urine RBC 1 (0-5) /hpf Urine WBC 4 (0-5) /hpf Ur Squamous Epith Cells 3 (0-4) /hpf Calcium Oxalate Crystal Few H (None) /hpf Urine Bacteria Many H (None) /hpf Urine Mucus Many H (None) /hpf Influenza Type A (PCR) Not Detected (Not Detectd) Influenza Type B (PCR) Not Detected (Not Detectd) RSV (PCR) Not Detected (Not Detectd) SARS-CoV-2 (PCR) Not Detected (Not Detectd) Disposition Clinical Impression: Viral syndrome, Diarrhea Disposition: HOME SELF-CARE Condition: Good Instructions (If sedation given, give patient instructions): Acute Diarrhea (ED) Is patient prescribed a controlled substance at d/c from ED?: No Referrals: France Root MD [Primary Care Provider] - 1-2 days Time of Disposition: 20:05
[2023-08-25] MEDS: ONDANSETRON 4 MG ODT STARTER PACK 2 TAB BTL PO STA (20:22)
[2023-08-25 20:27] VITALS: RESP 19
[2023-08-25 20:53] VITALS: BP 134/77; PULSE 82; TEMP 98.7
== END 2023-08-25 20:46 | disposition home or self-care (01) ==
LOC: EC 17:54
DX: B34.9 Viral infection, unspecified (principal); Z20.822 Contact with and (suspected) exposure to COVID-19; Z88.4 Allergy status to anesthetic agent; Z90.49 Acquired absence of other specified parts of digestive tract
CPT/HCPCS: 36415; 80053; 82150; 83605; 83690; 85025; 85610; 85730; 81001; 87636; 99284; 96374; 96361; J2405; S0119